=== PATIENT | female | born 1940 | race Caucasian/White ===

== ENCOUNTER 2021-05-27 18:47 | Observation (INO) | payer MEDICARE, SELFPAY ==
[2021-05-27] VITALS (14 sets, daily range): BP systolic 134–156; BP diastolic 64–78; PULSE 76–94; RESP 18–22; TEMP 36.6–36.7; O2SAT 80–97; BMI 18.3; BMI 18.4; BMI 18.5; BMI 16.9
--- NOTE | 2021-05-27 19:05 | PC.NURSE ---
PATIENT IN WAITING ROOM AT THIS TIME. VITALS CHECKED AT THIS TIME: 02 SAT 88% RA, HR 96, RR 29. FAMILY STATES THAT PATIENT HAS HAD WORSENING SOA FOR LAST 2 DAYS. ASSESSED BY IKER AND SUGGESTED PATIENT IS SEEN IN ER. REPORT GIVEN TO Codey DIXON RN BY Daina REAVES APRN
--- NOTE | 2021-05-27 19:21 | ECG_ITS ---
APPROVED REPORT Exam: Resting ECG HR:92 bpm ECG Measurements Heart Rate [address] 174 P QRSd 108 QRS 1 QT 360 T 136 QTc 445 Conclusion Sinus rhythm with premature atrial complexes Moderate voltage criteria for LVH, may be normal variant ST & T wave abnormality, consider lateral ischemia Abnormal ECG Electronically signed by : Lito Pimentel MD 05/29/2021 13:25:46
[2021-05-27 20:00] LABS: ABG Base Excess 7.4 mmol/L (-2.4-2.3); ABG HCO3 30.7 mmhg (22.0-26.0); ABG Oxygen Saturation 94 % (90-100); ABG PH 7.49 mmol/L (7.35-7.45); ABG TCO2 31.9 mmhg (23-27)
--- NOTE | 2021-05-27 20:02 | XR_ITS ---
PROCEDURE INFORMATION: Exam: XR Chest Exam date and time: 05/27/2021 8:02 PM Age: 81 years old Clinical indication: Shortness of breath; Additional info: SOA TECHNIQUE: Imaging protocol: XR of the chest. Views: 2 views. COMPARISON: No relevant prior studies available. FINDINGS: Lungs: Prominent bronchovascular markings especially over the bases. No focal consolidation. Pleural spaces: Unremarkable. No pleural effusion. No pneumothorax. Heart/Mediastinum: Unremarkable. No cardiomegaly. Bones/joints: Unremarkable. IMPRESSION: Question bronchitis and/or mild interstitial edema
[2021-05-27 20:05] LABS: Coronavirus 19, PCR Not Detected (NotDetected); Influenza A, PCR Not Detected (NotDetected); Influenza B, PCR Not Detected (NotDetected)
[2021-05-27 20:09] LABS: Basophils # 0.3 K/mm3 (0-0.2); Basophils % 4.3 % (0.1-2.0); Eosinophils # 0.2 K/mm3 (0.0-0.4); Eosinophils % 2.2 % (0.1-12.0); Hematocrit 45.4 % (37.0-47.0); Hemoglobin 14.4 g/dL (12.2-16.2); Lymphocytes # 1.6 K/mm3 (0.7-4.5); Lymphocytes % 23.8 % (10-50); Mean Corpuscular HGB Conc 31.8 g/dL (31.8-35.4); Mean Corpuscular Hemoglobin 30.2 pg (27.0-31.2); Mean Corpuscular Volume 94.9 fl (81-99); Mean Platelet Volume 7.8 fl (7.4-10.4); Monocytes # 0.8 K/mm3 (0.1-1.0); Neutrophils # 4.3 K/mm3 (1.8-7.8); Platelet Count 348 K/mm3 (142-424); Red Blood Count 4.78 M/mm3 (4.20-5.40); Red Cell Distribution Width 14.2 % (11.5-17.5); White Blood Count 6.9 K/mm3 (4.8-10.8)
[2021-05-27 20:16] LABS: Allen's Test Acceptable; Oxygen 4L NC %; Source Left Radial
[2021-05-27 20:19] LABS: Chloride 91 mmol/L (98-107); Potassium 3.7 mmoL/L (3.5-5.1); Sodium 133 mmol/L (136-145)
[2021-05-27 20:22] LABS: Alanine Aminotransferase 19 U/L (12-78); Albumin Level 4.4 g/dl (3.5-5.0); Albumin/Globulin Ratio 1.3 (1.1-1.8); Alkaline Phosphatase 57 U/L (38-126); Anion Gap 15.7 mEq/L (5-15); Aspartate Amino Transferase 33 U/L (14-36); Bilirubin,Total 0.4 mg/dl (0.2-1.3); Blood Urea Nitrogen 18 mg/dl (7-17); Calcium 9.3 mg/dl (8.4-10.2); Carbon Dioxide 30 mmol/L (22.0-30.0); Creatinine Clearance Estimated 33 mL/min (50-200); Estimated Glomerular Filt Rate 69 ml/min (>60); GFR (African American) 83 ML/MIN (>60); Globulin 3.5 g/dL (1.3-3.2); Glucose 140 mg/dl (74-100); Total Protein,Serum 7.9 g/dl (6.3-8.2)
[2021-05-27 20:23] LABS: Magnesium 1.4 mg/dl (1.6-2.3)
[2021-05-27 20:26] LABS: Lactic Acid 1.5 mmol/L (0.7-2.1)
[2021-05-27 20:34] LABS: NT Pro Brain Natriuretic Pep. 690 pg/mL (0-450)
[2021-05-27 20:37] LABS: Microscopic, Urine URINE MICROSCOPIC (MICROSCOPIC)
[2021-05-27 20:37] LABS: Troponin I 0.02 ng/ml (0.00-0.034)
[2021-05-27 20:40] LABS: Erythrocyte Sedimentation Rate 15 mm/hr (0-30)
[2021-05-27 20:46] LABS: Appearance,Urine CLEAR (Clear); Bilirubin,Urine Negative (Negative); Blood, Urine TRACE-I (Negative); Color,Urine YELLOW (Yellow); Glucose,Urine (UA) Negative (Negative); Ketones,Urine TRACE (Negative); Leukocyte Esterase,Urine 1+ (Negative); Nitrate,Urine POSITIVE (Negative); PH,Urine 5.5 (5.0-8.5); Protein,Urine Negative (Negative); Specific Gravity, Urine >= 1.030 (1.005-1.030); Urobilinogen,Urine 0.2 EU/dl (0.2)
--- NOTE | 2021-05-27 20:50 | HMH.EDSOB ---
ED Disposition Clinical Impression: Dyspnea Qualifiers: Dyspnea type: unspecified Qualified Code(s): R06.00 - Dyspnea, unspecified UTI (urinary tract infection) Qualifiers: Urinary tract infection type: site unspecified Hematuria presence: without hematuria Qualified Code(s): N39.0 - Urinary tract infection, site not specified Disposition: Admitted as Observation Condition on Discharge: Good - Critical Care Critical Care Time: No Attestation: On 05/27/21, the high probability of a clinically significant, sudden or life threatening deterioration of the following system(s) required my full and direct attention, intervention and personal management. The time I documented below is in addition to time spent performing reported procedures but includes the following listed in this critical care notation. Medical Decision Making - Medical Records Medical records reviewed: Yes: I reviewed the patient's medical records. - Cole Inquiry Pt receiving controlled substance: No Vital Signs: 05/27/21 19:00 05/27/21 19:19 05/27/21 19:20 Temperature 97.8 F 97.8 F 97.8 F Temperature Source Rectal Rectal Rectal Pulse Rate 93 H Pulse Rate [Apical] 77 93 H Respiratory Rate 18 18 20 Blood Pressure 156/66 H Blood Pressure [Right Arm] 156/66 H 156/67 H Blood Pressure Mean Blood Pressure Mean [Right Arm] 96 96 Blood Pressure Source Automatic Cuff Blood Pressure Source [Right Arm] Automatic Cuff Automatic Cuff Blood Pressure Position Sitting Blood Pressure Position [Right Arm] Sitting Sitting 02 Sat by Pulse Oximetry 84 L 80 L 94 L Oxygen Delivery Method Room Air Room Air Nasal Cannula Oxygen Flow Rate (LPM) 4 05/27/21 19:54 05/27/21 20:55 05/27/21 21:00 Temperature 97.8 F Temperature Source Rectal Pulse Rate 76 77 Pulse Rate [Apical] 93 H Respiratory Rate 20 Blood Pressure 147/64 H 156/66 H Blood Pressure [Right Arm] 156/67 H Blood Pressure Mean Blood Pressure Mean [Right Arm] 96 Blood Pressure Source Blood Pressure Source [Right Arm] Automatic Cuff Blood Pressure Position Blood Pressure Position [Right Arm] Supine 02 Sat by Pulse Oximetry 94 L 89 L 88 L Oxygen Delivery Method Nasal Cannula Nasal Cannula Nasal Cannula Oxygen Flow Rate (LPM) 4 4 4 05/27/21 21:30 05/27/21 21:45 05/27/21 22:00 Temperature Temperature Source Pulse Rate 89 88 89 Pulse Rate [Apical] Respiratory Rate Blood Pressure 148/73 H 134/78 Blood Pressure [Right Arm] Blood Pressure Mean 98 93 Blood Pressure Mean [Right Arm] Blood Pressure Source Blood Pressure Source [Right Arm] Blood Pressure Position Blood Pressure Position [Right Arm] 02 Sat by Pulse Oximetry 87 L 87 L 89 L Oxygen Delivery Method Nasal Cannula Nasal Cannula Nasal Cannula Oxygen Flow Rate (LPM) 4 4 4 05/27/21 22:15 05/27/21 22:30 Temperature Temperature Source Pulse Rate 82 94 H Pulse Rate [Apical] Respiratory Rate Blood Pressure 134/78 Blood Pressure [Right Arm] Blood Pressure Mean 97 Blood Pressure Mean [Right Arm] Blood Pressure Source Blood Pressure Source [Right Arm] Blood Pressure Position Blood Pressure Position [Right Arm] 02 Sat by Pulse Oximetry 88 L 90 L Oxygen Delivery Method Oxygen Flow Rate (LPM) - Lab Data Lab results reviewed: Yes: I reviewed the patient's lab results. Lab Results 05/27/21 19:30: WBC 6.9, RBC 4.78, Hgb 14.4, Hct 45.4, MCV 94.9, MCH 30.2, MCHC 31.8, RDW 14.2, Plt Count 348, MPV 7.8, Neut % (Auto) 63.0, Lymph % (Auto) 23.8, [place] % (Auto) 11.0 H, Eos % (Auto) 2.2, Baso % (Auto) 4.3 H, Neut # (Auto) 4.3, Lymph # (Auto) 1.6, [place] # (Auto) 0.8, Eos # (Auto) 0.2, Baso # (Auto) 0.3 H, ESR 15 05/27/21 19:30: Sodium 133 L, Potassium 3.7, Chloride 91 L, Carbon Dioxide 30, Anion Gap 15.7 H, BUN 18 H, Creatinine 0.80, Estimated Creat Clear 33, Estimated GFR 69, Est GFR ( Amer) 83, Glucose 140 H, Calcium 9.3, Magnesium 1.4 L, Total B
[2021-05-27 20:57] LABS: Squamous Epithelial Cell,Urine Occasional #/hpf (0-5)
[2021-05-27 20:58] LABS: Bacteria,Urine 3+ /lpf
[2021-05-27 21:03] LABS: Procalcitonin 0.072 ng/mL (0.0-2.0)
--- NOTE | 2021-05-27 21:08 | PC.NURSE ---
dR. Carmen S/W dR. Hua
--- NOTE | 2021-05-27 23:22 | PC.NURSE ---
Report received from Onofre Nolasco RN
[2021-05-27 23:24] LABS: Troponin I 0.02 ng/ml (0.00-0.034)
[2021-05-28] VITALS (7 sets, daily range): BP systolic 121–133; BP diastolic 53–81; PULSE 79–96; RESP 18–22; TEMP 36.7; O2SAT 90–97; BMI 16.7
--- NOTE | 2021-05-28 01:58 | PC.NURSE ---
LAB AT BEDSIDE
[2021-05-28 02:36] LABS: Troponin I 0.02 ng/ml (0.00-0.034)
--- NOTE | 2021-05-28 05:35 | PC.NURSE ---
lab at bedside
--- NOTE | 2021-05-28 05:35 | PC.NURSE ---
0400- routine reassessment completed. no acute changes from admission. lungs remain ctab and bowels active x4 quadrants. pt A&O x4. standby assist to bedside commode or bathroom to void. Has had a BM this shift. NPO since midnight per order. Pt has denied all pain and only c/o soa on exertion when ambulating. vss. call light in reach
[2021-05-28 05:49] LABS: Basophils % 0.7 % (0.1-2.0); Chloride 95 mmol/L (98-107); Eosinophils # 0.1 K/mm3 (0.0-0.4); Eosinophils % 0.8 % (0.1-12.0); Lymphocytes # 0.9 K/mm3 (0.7-4.5); Lymphocytes % 13.3 % (10-50); Mean Corpuscular HGB Conc 31.7 g/dL (31.8-35.4); Mean Corpuscular Hemoglobin 30.1 pg (27.0-31.2); Mean Platelet Volume 8.7 fl (7.4-10.4); Monocytes # 0.7 K/mm3 (0.1-1.0); Monocytes % 11.1 % (1.7-9.3); Neutrophils # 4.7 K/mm3 (1.8-7.8); Neutrophils % 74.1 % (37.0-80.0); Platelet Count 273 K/mm3 (142-424); Red Cell Distribution Width 14.2 % (11.5-17.5); White Blood Count 6.4 K/mm3 (4.8-10.8)
[2021-05-28 05:50] LABS: Potassium 3.2 mmoL/L (3.5-5.1); Sodium 132 mmol/L (136-145)
[2021-05-28 05:52] LABS: Anion Gap 8.2 mEq/L (5-15); Blood Urea Nitrogen 13 mg/dl (7-17); Carbon Dioxide 32 mmol/L (22.0-30.0); Creatinine Clearance Estimated 30 mL/min (50-200); Estimated Glomerular Filt Rate 80 ml/min (>60); GFR (African American) 97 ML/MIN (>60)
[2021-05-28 05:53] LABS: Calcium 7.9 mg/dl (8.4-10.2); Chol/HDL Ratio 1.9 (1-3.5); Cholesterol 88 mg/dl (140-200); Glucose 111 mg/dl (74-100); HDL Cholesterol 46 mg/dl (40-60); Magnesium 1.1 mg/dl (1.6-2.3); Triglycerides 73 mg/dl (30-150); VLDL Cholesterol 15 mg/dL (0-40)
[2021-05-28 06:04] LABS: Direct LDL Cholesterol < 30.00 mg/dL (100-129)
[2021-05-28 06:10] LABS: Hemoglobin 12.4 g/dL (12.2-16.2)
[2021-05-28 06:18] LABS: POC Glucose,Bedside 101 (70-110)
--- NOTE | 2021-05-28 07:12 | CT_ITS ---
PROCEDURE: CT ANGIO CHEST PE PROTOCOL CLINCIAL INDICATION: hypoxia COMPARISON: CR XR CHEST 2V from 05/27/2021 TECHNIQUE: IV Contrast: 70ML Isovue 370 Axial images obtained with sagittal and coronal reformats. All CT scans at the facility use one or more dose reduction, viz: automated exposure control, ma/kV adjustment per patient size (including targeted exams where dose is matched to indication, i.e. head), or iterative reconstruction technique. FINDINGS: HEART AND MEDIASTINAL STRUCTURES: No evidence of pulmonary embolus. The main pulmonary artery and right and left main pulmonary arteries are prominent. The pulmonary artery/aorta ratio is greater than 1. These findings suggest pulmonary arterial hypertension. No evidence of aortic aneurysm. LUNGS AND PLEURAL SPACES: COPD changes with scattered areas of scarring. There is eventration of the right hemidiaphragm posteriorly with associated right basilar atelectasis atelectatic changes are present in the left lower lobe along the major fissure inferiorly and there is also mild eventration of the left hemidiaphragm posteriorly with associated atelectasis. BONY STRUCTURES: Severe thoracic kyphosis with degenerative changes. There is 5 mm anterolisthesis of C6 on C7. 50 percent wedge compression changes involve T2 with kyphosis at that level. 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 The degree of stenosis is not able to be calculated on this exam. Calcific plaque is also present at the ostium of the celiac artery. ADDITIONAL FINDINGS: No other significant abnormalities. IMPRESSION: No evidence of pulmonary embolus. Consistent with pulmonary arterial hypertension. COPD changes with scattered areas of scarring and atelectasis in the lung bases adjacent to diaphragmatic eventration is. Prominent main pulmonary artery and its branches Other nonacute findings as described above. Dictated by: Yury Jones MD 05/28/2021 12:41 Yury Jones MD in OV 05/28/2021 12:41
--- NOTE | 2021-05-28 07:14 | HMH.HP ---
*Admission Date: 05/27/21 *Chief complaint: I feel like I am smothering *History of present illness: 81-year-old female presented to the emergency department with her daughter due to sensation of smothering. Patient states this is happened before but a cause has not been identified. She has never been hospitalized for similar symptoms. In the emergency department patient was found to be mildly hypoxic with O2 sats in the high 80s. She had mild increased work of breathing. Labs were rather unremarkable. EKG showed frequent PACs. Chest x-ray showed interstitial edema. Patient was given IV Lasix without any improvement in her hypoxia. Due to persistent hypoxia patient was admitted for observation and further testing. This morning she denies having any fevers, cough, chills, myalgias, chest pain, lower extremity swelling. She has no dyspnea at rest but does note dyspnea on exertion. She has no personal history of lung problems. She does take a heart pill . But is not exactly sure what diagnosis has required this medicine. She has no smoking history. Patient lives by herself. [facility] History I have reviewed the patient's past medical history: Yes Medical History: Reports:: Diabetes Mellitus Type 2, Hyperlipidemia, Hypertension Denies:: Cancer, MRSA *Have you ever received a pneumonia vaccine?: No *Have you received a flu vaccine this season?: Yes Other Medical History: Reports: Cataracts, Hypothyroidism Laterality Cases: Bilateral: Cataract Other Surgeries: Yes: Appendectomy, Cardiac Catheterization, Cholecystectomy, Hernia Repair, Hysterectomy-Partial Amputation: No Fractures: No - *Social History Last grade of school completed: GED Smoking Status: Never smoker Alcohol Intake: never *Occupational Status:: retired Housing: house *Travel in the last 8 weeks: None Family Hx:: No significant family history Review of Systems - Constitutional Reports anorexia, Denies body ache(s), Denies chills, Denies lack of energy, Denies night sweats - Eyes Denies blurry vision - ENT Denies abnormal hearing, Denies change in voice - *Cardiovascular Reports shortness of breath with activity, Denies chest pain, Denies chest pain at rest, Denies chest pain with activity, Denies excessive sweating, Denies generalized swelling - *Respiratory Reports shortness of breath with activity, Denies change in phlegm color, Denies chest congestion, Denies cough, Denies coughing up blood, Denies pain on inspiration, Denies pain with cough - *Gastrointestinal Denies abdominal pain, Denies loose stools - *Genitourinary Denies painful urination - *Musculoskeletal Denies joint pain - Integumentary/Breasts Denies hair loss - *Neurologic Denies abnormal walking, Denies seizure-like activity Meds Home Medications Medication Instructions Recorded Confirmed Type Acetaminophen [Tylenol 500mg 500 mg PO DAILY 05/27/21 05/27/21 History tablet] Amlodipine Besylate [Norvasc 10mg 10 mg PO DAILY 05/27/21 05/27/21 History tablet] Atorvastatin Calcium [Lipitor 40mg 40 mg PO HS 05/27/21 05/27/21 History Tab] Cholecalciferol (Vitamin D3) 25 mcg PO DAILY 05/27/21 05/27/21 History [Vitamin D3] Famotidine 10 mg PO DAILY 05/27/21 05/27/21 History Ferrous Sulfate [Ferrous Sulfate 325 mg PO DAILY 05/27/21 05/27/21 History 325mg Tab] Ibuprofen [Advil 200mg Tab] 200 mg PO DAILY 05/27/21 05/27/21 History Levothyroxine Sodium 50 mcg PO DAILY 05/27/21 05/27/21 History [Levothyroxine] Lisinopril/Hydrochlorothiazide 1 each PO DAILY 05/27/21 05/27/21 History [Lisinopril-Hctz 10-12.5 mg Tab] Mecobalamin [B12 Active] 1,000 mcg PO DAILY 05/27/21 05/27/21 History Metformin HCl [Metformin 1000mg 1,000 mg PO DAILY 05/27/21 05/27/21 History Tablets] Metoprolol Succinate [Kapspargo 25 mg PO DAILY 05/27/21 05/27/21 History Sprinkle] Simethicone [Gas Relief] 80 mg PO DAILY 05/27/21 05/27/21 History Vitamin E Acetate [Vitamin E] 1
--- NOTE | 2021-05-28 07:42 | HMH.PHAVTE ---
[facility] Pharmacy VTE Monitoring - Patient Demographics Admission date: 05/27/21 Report Date: 05/28/21 Time: 07:42 Allergies/Adverse Reactions: Patient Allergies codeine Allergy (Verified 05/27/21 20:01) ibandronate sodium [From Boniva] Allergy (Verified 05/27/21 20:01) Penicillins Allergy (Verified 05/27/21 20:01) Sulfa (Sulfonamide Antibiotics) Allergy (Verified 05/27/21 20:01) Height: 1.63 m Weight: 44.452 kg Patient Problems: Current Active Problems Dyspnea (Acute) Hypoxia (Acute) Essential hypertension (Acute) Diabetes mellitus type 2 in nonobese (Acute) - VTE Risk Labs: VTE Related Lab Results Hgb 12.4 g/dL (12.2-16.2) D 05/28/21 05:30 Hct 39.0 % (37.0-47.0) 05/28/21 05:30 Plt Count 273 K/mm3 (142-424) 05/28/21 05:30 BUN 13 mg/dl (7-17) D 05/28/21 05:30 Creatinine 0.70 mg/dl (0.52-1.04) 05/28/21 05:30 Estimated Creat Clear 30 mL/min (50-200) 05/28/21 05:30 VTE Score: 2 VTE Risk Level: Very Low Risk - Prophylaxis VTE Prophylaxis Ordered?: Yes Types of VTE Prophylaxis: TEDS Knee High Location of Applied Device: Bilateral Lower Extremeties
--- NOTE | 2021-05-28 07:50 | ECG_ITS ---
APPROVED REPORT Exam: Resting ECG HR:98 bpm ECG Measurements Heart Rate 98 AXES NE 216 P QRSd 98 QRS -3 QT 352 T 154 QTc 449 Conclusion Sinus rhythm with 1st degree AV block with premature atrial complexes Left ventricular hypertrophy with repolarization abnormality Cannot rule out Septal infarct, age undetermined Abnormal ECG Electronically signed by : Lito Pimentel MD 05/29/2021 13:25:05
--- NOTE | 2021-05-28 09:35 | HMH.PHAINT ---
verified home medication list using the list from [facility] pharmacy and pt interview
[2021-05-28 11:34] LABS: POC Glucose,Bedside 118 (70-110)
--- NOTE | 2021-05-28 14:26 | PC.NURSE ---
13:00 - Nurse to room. Pt. noted to have o2 off, SPO2 noted to be at 80% on RA. 4L O2 VIA NC applies SPO2 up to 92%. Nurse encouraged pt. to wear NC. Pt. V/U.
[2021-05-28 16:38] LABS: POC Glucose,Bedside 113 (70-110)
--- NOTE | 2021-05-28 16:47 | PC.NURSE ---
Addendum entered by Alondra Burnette RN 05/28/21 17:00: No acute changes noted from previous assessment. See Nursing biophysical for assessment. Original Note: Routine reassessment completed. VSS. IV noted to be leaking, dressing removed. IV flushed , no further leaking noted. New dressing in place. IVF restarted. Dr. Redman in room. Pt. denies needs, will continue to monitor.
--- NOTE | 2021-05-28 20:40 | PC.NURSE ---
2015- Routine assessment completed at this time. Patient at 4L NC with saturations steady at 93%. Attempted to wean patient to 2L NC. Saturations maintained briefly, but when patient began talking, sats quickly dropped to 82-85% and only returned to 88% when she stopped talking. O2 increased to 3L with no consistent recovery in saturation after 5 minutes. O2 increased again to 4L and sats increased and maintained at 92-93%. See biophysical for full assessment data.
[2021-05-28 20:42] LABS: POC Glucose,Bedside 129 (70-110)
[2021-05-29 03:59] VITALS: BP 128/61; PULSE 65; RESP 20; TEMP 36.7; O2SAT 93
--- NOTE | 2021-05-29 04:01 | PC.NURSE ---
Routine reassessment completed at this time. No acute changes this shift. Remains A&O x4. Denies chest pain, and has not c/o soa this shift. VSS. O2 saturation remains in the low 90's on 4L. No further attempts to wean down. Lungs remain CTAB and systolic heart murmur noted and unchanged from previous assessment. Sputum cup in room for collection but patient unable to give sample at this time. Will contact respiratory for assist. Call light in reach, Will continue to monitor.
[2021-05-29 06:26] LABS: POC Glucose,Bedside 108 (70-110)
--- NOTE | 2021-05-29 06:40 | PC.NURSE ---
RT contacted at this time due to PT unable to provide sputum sample. RT will follow up with pt to see if they can induce a sample.
--- NOTE | 2021-05-29 06:47 | PC.NURSE ---
Dr. Redman at bedside
--- NOTE | 2021-05-29 06:58 | PC.NURSE ---
PT trialed at room air per MD order for 5 minutes. O2 saturations remained between 86 and 90%
--- NOTE | 2021-05-29 07:01 | HMH.ACPN2 ---
Internal Medicine - PN: Subj *Date: 05/29/21 *Time: 07:01 Interval history: No complaints. No acute events over the last 24 hours. Patient reports resolution of shortness of breath/dyspnea on exertion. CT scan ruled out pulmonary embolism. CT scan did have changes of the lungs consistent with COPD. Patient also has cervical spondylolisthesis. In further discussions with the patient she had significant secondhand smoke exposure as a child since her father smoked. She was not to a smoker and she herself has never been a smoker. Exam Vital signs and Labs for Last 24 Hours: Temp Pulse Resp BP Pulse Ox 98.0 F 65 20 128/61 93 L 05/29/21 03:59 05/29/21 03:59 05/29/21 03:59 05/29/21 03:59 05/29/21 03:59 Laboratory Results - last 24 hr 05/28/21 11:24: POC Glucose 118 H 05/28/21 16:22: POC Glucose 113 H 05/28/21 20:30: POC Glucose 129 H 05/29/21 06:16: POC Glucose 108 I & O for Last 24 hours: Intake & Output 05/26/21 05/27/21 05/28/21 05/29/21 11:59 11:59 11:59 11:59 Intake Total 240 / 240 220 / 220 Output Total 2000 / 1999 800 / 800 Balance -1760 / -1760 -580 / -580 Weight 98 lb Microbiology Reports for the Last 24 Hours: Microbiology 05/27/21 20:30 Urine,Clean Catch Urine Culture - Preliminary Narrative: Patient looks comfortable. Nasal cannula is in place. Spine is kyphotic. Lungs overall are clear with some rhonchi at the right base to clear with deep breathing. Heart has an irregular rate and rhythm. Lower extremities have no edema. EKG from yesterday showed frequent PACs Room air sat this morning is 86% at rest Assessment and Plan (1) Hypoxia Status: Acute Category: Medical Code(s): R09.02 - Hypoxemia (2) Dyspnea Status: Acute Qualifiers: Dyspnea type: unspecified Qualified Code(s): R06.00 - Dyspnea, unspecified Category: Medical Code(s): R06.00 - Dyspnea, unspecified (3) UTI (urinary tract infection) Status: Suspected Qualifiers: Urinary tract infection type: site unspecified Hematuria presence: without hematuria Qualified Code(s): N39.0 - Urinary tract infection, site not specified Category: Medical Code(s): N39.0 - Urinary tract infection, site not specified (4) Essential hypertension Status: Acute Category: Medical Code(s): I10 - Essential (primary) hypertension (5) Diabetes mellitus type 2 in nonobese Status: Acute Category: Medical Code(s): E11.9 - Type 2 diabetes mellitus without complications (6) Pneumonia Status: Suspected Category: Medical Code(s): J18.9 - Pneumonia, unspecified organism - Assessment and plan all Dx Assessment and Plan for all problems:: 1. Awaiting echocardiogram 2. Consult pulmonology today for evaluation. I suspect patient may actually have chronic respiratory failure and we just happened to capture low O2 sats during her visit to the ER. 3. As long as no further interventions are planned with pulmonology consultation patient will be discharged home later today and will continue using supplemental oxygen
[2021-05-29 08:00] VITALS: BP 130/72; PULSE 83; RESP 18; TEMP 36.7; O2SAT 93
[2021-05-29 08:28] VITALS: PULSE 69; RESP 18; O2SAT 94
--- NOTE | 2021-05-29 08:33 | PC.NURSE ---
RESP CARE NOTE: Pt induced for sputum specimen, but is nable to produce a specimen. Specimen cup left at bedside with instruction to expectorate sputum into cup, if specimen is produced later.
[2021-05-29 09:00] VITALS: O2SAT 94
[2021-05-29 10:17] LABS: Adenovirus,PCR Not Detected (NotDetected); Bordetella Pertussis Not Detected (NotDetected); Chlamydophila Pneumoniae, PCR Not Detected (NotDetected); Coronavirus 229E Not Detected (NotDetected); Coronavirus NL63 Not Detected (NotDetected); Coronavirus OC43 Not Detected (NotDetected); Coronovirus HKU1,PCR Not Detected (NotDetected); Human Metapneumovirus Not Detected (NotDetected); Influenza A, PCR Not Detected (NotDetected); Influenza AH1, 2009 Not Detected (NotDetected); Influenza AH1, PCR Not Detected (NotDetected); Influenza AH3,PCR Not Detected (NotDetected); Influenza B, PCR Not Detected (NotDetected); Mycoplasma Pneumoniae, PCR Not Detected (NotDetected); Parainfluenza 1, PCR Not Detected (NotDetected); Parainfluenza 2, PCR Not Detected (NotDetected); Parainfluenza 3, PCR Not Detected (NotDetected); Parainfluenza 4, PCR Not Detected (NotDetected); Respiratory Syncytial Virus Not Detected (NotDetected); Rhinovirus/Enterovirus Not Detected (NotDetected)
[2021-05-29 10:47] VITALS: BMI 16.7
--- NOTE | 2021-05-29 11:16 | PC.NURSE ---
O2 sats at 93% on 4L O2 via NC. NC removed, O2 sats at 83% on Room Air. O2 sats back up to 90% on 4L O2.
[2021-05-29 11:20] VITALS: O2SAT 83
--- NOTE | 2021-05-29 11:32 | SW/DCPLANNER ---
SET UP HOME 02 FOR THIS PATIENT WHO IS DISCHARGING HOME TODAY... PORTABLE TANK WILL BE DELIVERED TO HER ROOM PRIOR TO DISCHARGE..
[2021-05-29 12:00] VITALS: BP 140/90; PULSE 75; RESP 18; TEMP 36.7; O2SAT 93
[2021-05-29 12:08] LABS: POC Glucose,Bedside 98 (70-110)
--- NOTE | 2021-05-29 13:39 | HMH.PULMCON ---
*Admission Date: 05/27/21 [facility] History Medical History: Reports:: Diabetes Mellitus Type 2, Hyperlipidemia, Hypertension Denies:: Cancer, MRSA *Have you ever received a pneumonia vaccine?: No *Have you received a flu vaccine this season?: Yes Other Medical History: Reports: Cataracts, Hypothyroidism Laterality Cases: Bilateral: Cataract Other Surgeries: Yes: Appendectomy, Cardiac Catheterization, Cholecystectomy, Hernia Repair, Hysterectomy-Partial Amputation: No Fractures: No - *Social History Last grade of school completed: GED Smoking Status: Never smoker Alcohol Intake: never *Occupational Status:: retired Housing: house *Travel in the last 8 weeks: None Family Hx:: No significant family history Meds Home Medications Medication Instructions Recorded Confirmed Type Acetaminophen [Tylenol 500mg 500 mg PO DAILY 05/27/21 05/27/21 History tablet] Amlodipine Besylate [Norvasc 10mg 10 mg PO DAILY 05/27/21 05/27/21 History tablet] Atorvastatin Calcium [Lipitor 40mg 40 mg PO HS 05/27/21 05/27/21 History Tab] Cholecalciferol (Vitamin D3) 25 mcg PO DAILY 05/27/21 05/27/21 History [Vitamin D3] Famotidine 10 mg PO BIDP PRN 05/27/21 05/28/21 History Ferrous Sulfate [Ferrous Sulfate 325 mg PO BID 05/27/21 05/28/21 History 325mg Tab] Ibuprofen [Advil 200mg Tab] 200 mg PO DAILY 05/27/21 05/27/21 History Levothyroxine Sodium 50 mcg PO DAILY 05/27/21 05/27/21 History [Levothyroxine] Lisinopril/Hydrochlorothiazide 1 tab PO BID 05/27/21 05/28/21 History [Lisinopril-Hctz 10-12.5 mg Tab] Mecobalamin [B12 Active] 1,000 mcg PO DAILY 05/27/21 05/27/21 History Metformin HCl [Metformin 1000mg 1,000 mg PO BID 05/27/21 05/28/21 History Tablets] Simethicone [Gas Relief] 80 mg PO DAILY 05/27/21 05/27/21 History Vitamin E Acetate [Vitamin E] 1,000 unit PO DAILY 05/27/21 05/27/21 History Metoprolol Succinate [Metoprolol 25 mg PO DAILY 05/28/21 05/28/21 History Succinate 25mg Tablet*] levoFLOXacin [Levofloxacin] 500 mg PO DAILY #5 tab 05/29/21 Rx Allergies Allergy/AdvReac Type Severity Reaction Status Date / Time codeine Allergy Verified 05/27/21 20:01 ibandronate sodium Allergy Verified 05/27/21 20:01 [From Boniva] Penicillins Allergy Verified 05/27/21 20:01 Sulfa (Sulfonamide Allergy Verified 05/27/21 20:01 Antibiotics) Internal Medicine - CN: Reslt - Labs CBC & Chem 7: 05/28/21 05:30 05/28/21 05:30 - ABG Interpretation ABG results: 05/27/21 19:58 ABG pH 7.49 H ABG pCO2 41.0 ABG pO2 69.0 L ABG HCO3 30.7 H ABG Total CO2 31.9 H ABG O2 Saturation 94 ABG Base Excess 7.4 H Assessment and Plan (1) Hypoxia Status: Acute Category: Medical Code(s): R09.02 - Hypoxemia (2) Dyspnea Status: Acute Qualifiers: Dyspnea type: unspecified Qualified Code(s): R06.00 - Dyspnea, unspecified Category: Medical Code(s): R06.00 - Dyspnea, unspecified (3) UTI (urinary tract infection) Status: Suspected Qualifiers: Urinary tract infection type: site unspecified Hematuria presence: without hematuria Qualified Code(s): N39.0 - Urinary tract infection, site not specified Category: Medical Code(s): N39.0 - Urinary tract infection, site not specified (4) Essential hypertension Status: Acute Category: Medical Code(s): I10 - Essential (primary) hypertension (5) Diabetes mellitus type 2 in nonobese Status: Acute Category: Medical Code(s): E11.9 - Type 2 diabetes mellitus without complications (6) Pneumonia Status: Suspected Category: Medical Code(s): J18.9 - Pneumonia, unspecified organism
[2021-05-29 14:28] LABS: C-Reactive Protein 0.6 mg/L (0-4)
[2021-05-29 14:41] LABS: Procalcitonin 0.059 ng/mL (0.0-2.0)
--- NOTE | 2021-05-29 15:20 | HMH.PULMCON ---
*Admission Date: 05/27/21 *Reason for consult:: Acute hypoxic respiratory failure acute hypoxic respiratory failure *History of present illness: Ms. David is a 81-year-old female no significant smoking history, no prior respiratory complaints never used any inhalers presented to hospital with worsening respiratory distress and pulmonary was called for further management. Patient received Lasix with slight but no significant improvement in her respiratory status. [facility] History Medical History: Reports:: Diabetes Mellitus Type 2, Hyperlipidemia, Hypertension Denies:: Cancer, MRSA *Have you ever received a pneumonia vaccine?: No *Have you received a flu vaccine this season?: Yes Other Medical History: Reports: Cataracts, Hypothyroidism Laterality Cases: Bilateral: Cataract Other Surgeries: Yes: Appendectomy, Cardiac Catheterization, Cholecystectomy, Hernia Repair, Hysterectomy-Partial Amputation: No Fractures: No - *Social History Last grade of school completed: GED Smoking Status: Never smoker Alcohol Intake: never *Occupational Status:: retired Housing: house *Travel in the last 8 weeks: None Family Hx:: No significant family history ROS - Cons Denies anorexia, Denies body ache(s), Denies chills - Card Reports shortness of breath, Reports shortness of breath with activity - Resp Respiratory: Reports shortness of breath, Reports chest congestion, Reports cough, Reports non-productive cough, Denies excessive phlegm production, Denies pain on inspiration, Denies pain with cough, Denies cough with sputum production, Denies pain with breathing - GI Gastrointestingal: Denies: abdominal pain - Psych Denies thoughts of hurting/killing others, Denies thoughts of hurting/killing yourself Meds Home Medications Medication Instructions Recorded Confirmed Type Acetaminophen [Tylenol 500mg 500 mg PO DAILY 05/27/21 05/27/21 History tablet] Amlodipine Besylate [Norvasc 10mg 10 mg PO DAILY 05/27/21 05/27/21 History tablet] Atorvastatin Calcium [Lipitor 40mg 40 mg PO HS 05/27/21 05/27/21 History Tab] Cholecalciferol (Vitamin D3) 25 mcg PO DAILY 05/27/21 05/27/21 History [Vitamin D3] Famotidine 10 mg PO BIDP PRN 05/27/21 05/28/21 History Ferrous Sulfate [Ferrous Sulfate 325 mg PO BID 05/27/21 05/28/21 History 325mg Tab] Ibuprofen [Advil 200mg Tab] 200 mg PO DAILY 05/27/21 05/27/21 History Levothyroxine Sodium 50 mcg PO DAILY 05/27/21 05/27/21 History [Levothyroxine] Lisinopril/Hydrochlorothiazide 1 tab PO BID 05/27/21 05/28/21 History [Lisinopril-Hctz 10-12.5 mg Tab] Mecobalamin [B12 Active] 1,000 mcg PO DAILY 05/27/21 05/27/21 History Metformin HCl [Metformin 1000mg 1,000 mg PO BID 05/27/21 05/28/21 History Tablets] Simethicone [Gas Relief] 80 mg PO DAILY 05/27/21 05/27/21 History Vitamin E Acetate [Vitamin E] 1,000 unit PO DAILY 05/27/21 05/27/21 History Metoprolol Succinate [Metoprolol 25 mg PO DAILY 05/28/21 05/28/21 History Succinate 25mg Tablet*] levoFLOXacin [Levofloxacin] 500 mg PO DAILY #5 tab 05/29/21 Rx Allergies Allergy/AdvReac Type Severity Reaction Status Date / Time codeine Allergy Verified 05/27/21 20:01 ibandronate sodium Allergy Verified 05/27/21 20:01 [From Raquel] Penicillins Allergy Verified 05/27/21 20:01 Sulfa (Sulfonamide Allergy Verified 05/27/21 20:01 Antibiotics) Exam - Constitutional Constitutional:: Present: no acute distress, comfortable - [facility] Exam HENMT: Present: normocephalic, atraumatic - Eye Exam Eyes:: Present: normal appearance both eyes and related structures - Neck Exam Neck:: Present: normal visual inspection - Respiratory Exam Respiratory:: Present: able to speak in complete sentences, lungs clear. Absent: rales, rhonchi, wheezing - Cardiovascular Exam Cardiac:: Present: S1, S2 - GI Exam GI:: Present: soft - Skin Exam Skin: Present: warm, no rash - Neurological Exam Neurological: Presen
--- NOTE | 2021-05-29 17:03 | PC.NURSE ---
16:45 - Discharge education provided. Questions encouraged and answered. Pt. and daughter v/u. 16:55 - IV removed from RA. Pt.tolerated well. 2X2 with coban in place. pt. and daughter educated on removing after 20 minutes, and holding pressure if bleeds when removed. Both V/U.
--- NOTE | 2021-05-29 17:15 | PC.NURSE ---
Pt. left unit via wheelchair accompanied by staff x1 to private vehicle where family member awaits.
--- NOTE | 2021-05-30 07:16 | HMH.DCSUM ---
General - General Admission date:: 05/27/21 Discharge date: 05/29/21 HPI HPI: 81-year-old female presented to the emergency department with her daughter due to sensation of smothering. Patient states this is happened before but a cause has not been identified. She has never been hospitalized for similar symptoms. In the emergency department patient was found to be mildly hypoxic with O2 sats in the high 80s. She had mild increased work of breathing. Labs were rather unremarkable. EKG showed frequent PACs. Chest x-ray showed interstitial edema. Patient was given IV Lasix without any improvement in her hypoxia. Due to persistent hypoxia patient was admitted for observation and further testing. This morning she denies having any fevers, cough, chills, myalgias, chest pain, lower extremity swelling. She has no dyspnea at rest but does note dyspnea on exertion. She has no personal history of lung problems. She does take a heart pill . But is not exactly sure what diagnosis has required this medicine. She has no smoking history. Patient lives by herself. Hospital Course Hospital Course: Patient was admitted for new hypoxia. Patient had no formal diagnosis of COPD but imaging findings are consistent with COPD. Patient's lung exam was benign. Echocardiogram and CT scan were more suggestive of mild fluid overload as a likely source of hypoxia then pneumonia or other pulmonary process. Patient was given Lasix initially and had adequate response although this did not change the patient's oxygen requirement. Pulmonology was consulted. They recommended finishing a course of antibiotics which the patient was being given for urinary tract infection and a short course of steroids. Pulmonology agreed that fluid overload was likely source of hypoxia. As patient was stable she was discharged home on supplemental oxygen. She will follow-up with her primary care physician next week Objective Vital signs: Temp Pulse Resp BP Pulse Ox 98.0 F 75 18 140/90 93 L 05/29/21 12:00 05/29/21 12:00 05/29/21 12:00 05/29/21 12:00 05/29/21 12:00 Results Labs on day of discharge: Labs from last 24 hours 05/29/21 05/29/21 05/29/21 14:00 11:59 10:04 POC Glucose 98 C-Reactive Protein 0.6 D Procalcitonin 0.059 Chlamy pneumoniae PCR Not detected Adenovirus (PCR) Not detected B. pertussis DNA (PCR) Not detected Coronavirus OC43 (PCR) Not detected Coronavirus HKU1 (PCR) Not detected Coronavirus 229E (PCR) Not detected Coronavirus NL63 (PCR) Not detected Human Metapneumovir PCR Not detected Influenza A (H1) PCR Not detected Influ A (H1N1/09) PCR Not detected Influenza A (H3) PCR Not detected Influenza Type A (PCR) Not detected Influenza Type B (PCR) Not detected M. pneumoniae (PCR) Not detected Parainfluenza 1 (PCR) Not detected Parainfluenza 2 (PCR) Not detected Parainfluenza 3 (PCR) Not detected Parainfluenza 4 (PCR) Not detected RSV (PCR) Not detected Entero/Rhino (PCR) Not detected Preliminary micro results at discharge 05/27/21 19:30 Blood Culture - Preliminary Blood NO GROWTH AFTER 48 HOURS 05/27/21 19:30 Blood Culture - Preliminary Blood NO GROWTH AFTER 48 HOURS 05/27/21 20:30 Urine Culture - Preliminary Urine,Clean Catch DS: Diagnosis - Discharge Diagnosis (1) Hypoxia Status: Acute (2) Dyspnea Status: Acute (3) UTI (urinary tract infection) Status: Suspected (4) Essential hypertension Status: Acute (5) Diabetes mellitus type 2 in nonobese Status: Acute (6) Pneumonia Status: Suspected Discharge Plan - Patient Discharge Instructions ACTIVITY: Continue current activity DIET: continue same diet Patient Instructions: DI for Urinary Tract Infection (UTI), DI for Shortness of Breath, Preventing the Spread of Coronavirus Discharge Instructions - Follow up Plan Follow up with
== END 2021-05-29 17:15 | disposition home or self-care (01) ==
LOC: UTC 18:55 → ER 19:08 → OB 21:32
PROVIDERS: Emergency Medicine; Internal Medicine Pulmonary Disease; Admitting Provider Family Medicine; Emergency Provider Emergency Medicine; PCP General Practice; Visit Provider Family Medicine
DX: J18.9 Pneumonia, unspecified organism; E11.9 Type 2 diabetes mellitus without complications; Z79.84 Long term (current) use of oral hypoglycemic drugs; E03.9 Hypothyroidism, unspecified; Z20.822 Contact with and (suspected) exposure to COVID-19; J96.01 Acute respiratory failure with hypoxia; Z79.899 Other long term (current) drug therapy; N39.0 Urinary tract infection, site not specified; Z88.8 Allergy status to other drugs, medicaments and biological substances
CPT/HCPCS: G0378; 36415; 71046; 71275; 80048; 80053; 80061; 81001; 82803; 82962; 83605; 83735; 83880; 84145; 84484; 85025; 85651; 86140; 87040; 87070; 87086; 87088; 87186; 87205; 87486; 87581; 87632; 87798; 93005; 93306; 94760; 94761; 96365; 96367; 99284; C9803; J1956; Q9967; U0003; U0005

== ENCOUNTER → 2021-07-01 09:58 | Outpatient (CLI) | payer MEDICARE, SELFPAY ==
[2021-07-01 10:40] VITALS: PULSE 68; PULSE 70
== END ==
PROVIDERS: PCP General Practice; Visit Provider Internal Medicine Pulmonary Disease
DX: R06.00 Dyspnea, unspecified (principal)
CPT/HCPCS: 94060; 94618; 94640; 94727; 94729; 94762

== ENCOUNTER → 2021-07-22 11:13 | Outpatient (CLI) | payer MEDICARE, SELFPAY | PROVIDERS: PCP General Practice; Visit Provider Internal Medicine Pulmonary Disease | DX: R06.09 Other forms of dyspnea (principal) | CPT/HCPCS: 94762 ==

== ENCOUNTER → 2022-11-24 12:54 | Outpatient (CLI) | payer MEDICARE, SELFPAY | PROVIDERS: PCP General Practice; Visit Provider Internal Medicine Pulmonary Disease | DX: R06.02 Shortness of breath (principal) | CPT/HCPCS: 94060 ==

== ENCOUNTER 2023-01-19 17:22 | Observation (INO) | payer MEDICARE, SELFPAY ==
[2023-01-19] VITALS (10 sets, daily range): BP systolic 115–163; BP diastolic 66–98; PULSE 61–103; RESP 24–28; TEMP 37.1; O2SAT 79–94; BMI 19.7
--- NOTE | 2023-01-19 17:58 | XR_ITS ---
PROCEDURE INFORMATION: Exam: XR Chest Exam date and time: 01/19/2023 6:16 PM Age: 82 years old Clinical indication: Shortness of breath; Patient HX: Patient states she has copd. ; Additional info: SOA TECHNIQUE: Imaging protocol: Radiologic exam of the chest. Views: 1 view. COMPARISON: CR XR CHEST 2V 05/27/2021 8:15 PM FINDINGS: Lungs: There is coarsening of the bronchovascular markings. Pleural spaces: Unremarkable. No pleural effusion. No pneumothorax. Heart/Mediastinum: Unremarkable. No cardiomegaly. Vasculature: There are calcifications of the aortic arch. Diaphragm: There is elevation of the left hemidiaphragm. Bones/joints: Unremarkable. IMPRESSION: No dense parenchymal consolidation pleural effusion or pneumothorax.
--- NOTE | 2023-01-19 18:02 | ECG_ITS ---
APPROVED REPORT Exam: Resting ECG HR:77 bpm ECG Measurements Heart Rate 77 AXES QRSd 107 QRS -4 QT 366 T 124 QTc 398 Conclusion ATRIAL FIBRILLATION VOLTAGE CRITERIA FOR LVH [MEETS CRITERIA IN ONE OF: R(aVL), S(V1), R(V5), R(V5/V6)+S(V1)] POSSIBLE SEPTAL MYOCARDIAL INFARCTION , OF INDETERMINATE AGE [30 ms Q WAVE IN V1/V2] MODERATE T-WAVE ABNORMALITY, CONSIDER LATERAL ISCHEMIA [-0.1+ mV T-WAVE IN I/aVL/V5/V6] ABNORMAL ECG UNCONFIRMED REPORT Electronically signed by : Lito Pimentel MD 01/20/2023 19:43:31
[2023-01-19 18:17] LABS: VBG Base Excess 0.1 mmol/L (-2.4-2.3); VBG HCO3 25.4 mmol/L (23-30); VBG PCO2 44.6 mmol/L (35-51); VBG PH 7.37 mmol/L (7.31-7.41); VBG PO2 50.4 mmol/L (28-40); VBG Total CO2 26.7 mmol/L (23-27)
[2023-01-19 18:19] LABS: Chloride 89 mmol/L (98-107); Sodium 129 mmol/L (136-145)
[2023-01-19 18:20] LABS: Basophils % 0.5 % (0.1-2.0); Eosinophils # 0.5 K/mm3 (0.0-0.4); Eosinophils % 6.4 % (0.1-12.0); Hematocrit 41.5 % (37.0-47.0); Hemoglobin 13.7 g/dL (12.2-16.2); Lymphocytes # 1.7 K/mm3 (0.7-4.5); Lymphocytes % 23.3 % (10-50); Mean Corpuscular HGB Conc 32.9 g/dL (31.8-35.4); Mean Corpuscular Hemoglobin 30.2 pg (27.0-31.2); Mean Corpuscular Volume 91.8 fl (81-99); Mean Platelet Volume 8.3 fl (7.4-10.4); Monocytes # 0.7 K/mm3 (0.1-1.0); Monocytes % 9.6 % (1.7-9.3); Neutrophils # 4.4 K/mm3 (1.8-7.8); Neutrophils % 60.1 % (37.0-80.0); Platelet Count 362 K/mm3 (142-424); Potassium 4.2 mmoL/L (3.5-5.1); Red Blood Count 4.52 M/mm3 (4.20-5.40); Red Cell Distribution Width 13.6 % (11.5-17.5); White Blood Count 7.4 K/mm3 (4.8-10.8)
[2023-01-19 18:22] LABS: Blood Urea Nitrogen 16 mg/dl (7-17); Creatinine Clearance Estimated 32 mL/min (50-200); Estimated Glomerular Filt Rate 60 ml/min (>60); GFR (African American) 72 ML/MIN (>60)
[2023-01-19 18:23] LABS: Anion Gap 19.2 mEq/L (5-15); Calcium 9.3 mg/dl (8.4-10.2); Carbon Dioxide 25 mmol/L (22.0-30.0); Glucose 130 mg/dl (74-100)
--- NOTE | 2023-01-19 18:27 | HMH.EDGENADL ---
Discharge Plan Disposition Patient Disposition: Admitted as Observation Clinical Impressions Clinical Impression: COPD exacerbation Discharge ED Provider: Abram Campbell General Adult HPI General Chief complaint: Shortness of Breath/Dyspnea Stated complaint: sob Time Seen by Provider: 01/19/23 18:21 Mode of Arrival: Family Vehicle Source of Information: Patient and Relative Limitations: No Limitations Description of Symptoms (Recalled from ER Triage Doc. by RN): Pt c/o SOA, cough, and dyspnea since yesterday. She wears 3LPM NC of home O2 d/t COPD. Pt reports the SOA started while at rest and has been worsening. She denies any cardiac of CHF hx. She does take inhalers for her COPD, Respirmat & Albuterol. She used her rescue inhaler last at 1500 today but it did not help. Report clear productive cough. Denies fever, chills, or body aches. History of Present Illness HPI narrative: Patient presents for evaluation of shortness of breath and increase of baseline nasal cannula oxygen requirement, symptoms are gradual in onset starting approximately yesterday, constant, worsening in course, no previous therapies, denies productive cough, fevers, chills, nausea, vomiting, chest pain, palpitations, no recent travel, no leg pain or leg swelling, no abdominal pain, no urinary symptoms, no sick contacts, and no recent travel. Related Data Home Medications Medication Instructions Recorded Confirmed acetaminophen 500 mg tablet 500 mg PO DAILY Pain 05/27/21 01/19/23 amlodipine 10 mg tablet 10 mg PO DAILY Hypertension 05/27/21 01/19/23 atorvastatin 40 mg tablet 40 mg PO HS hyperlipidemia 05/27/21 01/19/23 cholecalciferol (vitamin D3) 25 25 mcg PO DAILY Supplement 05/27/21 01/19/23 mcg (1,000 unit) tablet famotidine 10 mg tablet 10 mg PO BIDP PRN Acid Reflux 05/27/21 01/19/23 ferrous sulfate 325 mg (65 mg 325 mg PO BID Supplement 05/27/21 01/19/23 iron) tablet ibuprofen 200 mg tablet 200 mg PO DAILY Pain 05/27/21 01/19/23 levothyroxine 50 mcg capsule 50 mcg PO DAILY hyperthyroidism 05/27/21 01/19/23 lisinopril 10 1 tab PO BID Hypertension 05/27/21 01/19/23 mg-hydrochlorothiazide 12.5 mg tablet mecobalamin (vitamin B12) 1,000 1,000 mcg PO DAILY Supplement 05/27/21 01/19/23 mcg chewable tablet metformin 1,000 mg tablet 1,000 mg PO BID hyperglycemia 05/27/21 01/19/23 simethicone 80 mg chewable tablet 80 mg PO DAILY gas relief 05/27/21 01/19/23 vitamin E 670 mg (1,000 unit) 1,000 unit PO DAILY Supplement 05/27/21 01/19/23 capsule metoprolol succinate 25 mg 25 mg PO DAILY Hypertension 05/28/21 01/19/23 tablet,extended release 24 hr tiotropium 2.5 mcg-olodaterol 2.5 2 puff inhalation DAILY Copd 01/19/23 01/19/23 mcg/actuation mist for inhalation (Stiolto Respimat) Previous Rx's Medication Instructions Recorded albuterol sulfate 90 mcg/actuation 1 inh inhalation Q6H PRN shortness 11/22/21 aerosol inhaler of breath or wheezing 90 days #8.5 grams albuterol sulfate 90 mcg/actuation 2 inh inhalation Q4-6H PRN 05/15/22 breath activated powder shortness of breath or wheezing 90 inhaler,sensor days #1 ea Allergies Allergy/AdvReac Type Severity Reaction Status Date / Time codeine Allergy Verified 11/24/22 15:06 ibandronate sodium Allergy Verified 11/24/22 15:06 [From Boniva] Penicillins Allergy Verified 11/24/22 15:06 Sulfa (Sulfonamide Allergy Verified 11/24/22 15:06 Antibiotics) [facility] Disclaimer: The information contained in this section may have been updated after the patient was seen, as this information can be updated by other users. Medical History (Updated 01/19/23 @ 23:39 by OTTONIEL Mccloud) Chronic respiratory failure with hypoxia and hypercapnia COPD (chronic obstructive pulmonary disease) Dyspnea on exertion Nocturnal hypoxemia Pulmonary emphysema Unspecified kyphosis, site unspecified Surgical History History of appendecto
[2023-01-19 18:35] LABS: Troponin I 0.02 ng/ml (0.00-0.034)
[2023-01-19 19:33] LABS: Coronavirus 19, PCR Not Detected (NotDetected); Influenza A, PCR Not Detected (NotDetected); Influenza B, PCR Not Detected (NotDetected)
[2023-01-19 21:56] LABS: Troponin I 0.02 ng/ml (0.00-0.034)
--- NOTE | 2023-01-19 22:01 | PC.NURSE ---
on phone with hospitalist. household appliances salesperson notified of admission
[2023-01-19 22:13] LABS: Reflex Lactic Add Lactic Reflex
[2023-01-19 23:14] LABS: Hemoglobin A1C 5.9 % (4.0-6.0)
[2023-01-19 23:27] LABS: Thyroid Stimulating Hormone 1.62 uIU/mL (0.465-4.68)
--- NOTE | 2023-01-19 23:37 | EXP.HP ---
History of Present Illness *Admission Date: 01/19/23 *Reason for visit:: COPD exacerbation *History of present illness: 82 year old female presented to the ED for c/o SOB since last night. PMHX COPD, HTN, HLD, hypothyroid and DM. Uses 3 L NC at home. Presented to the ED hypoxic requiring 6L. She was given several breathing treatments and IV steroids without improvement. She denies any recent sick contact. Her ED work up was unremarkable and her Chest xray did not demonstrate pneumonia. The ED physician spoke with the hospitalist team regarding admission. Due to the increased oxygen requirement the patient was admitted to the medical floor. She will be started on IV broad spectrum antibiotics, steroids, and duonebs. [facility] Disclaimer: The information contained in this section may have been updated after the patient was seen, as this information can be updated by other users. Medical History (Updated 01/19/23 @ 23:39 by OTTONIEL Mccloud) Chronic respiratory failure with hypoxia and hypercapnia COPD (chronic obstructive pulmonary disease) Dyspnea on exertion Nocturnal hypoxemia Pulmonary emphysema Unspecified kyphosis, site unspecified Surgical History History of appendectomy History of cardiac cath History of hernia repair History of hysterectomy Hx of cholecystectomy Family History Other No significant family history Social History (Updated 01/19/23 @ 23:17 by Al Nolasco RN) Smoking Status: Never smoker alcohol intake: never current occupational status: retired Travel in the last 8 weeks: None housing: house Review of Systems Review of Systems Review of systems:: pertinent systems reviewed and negative unless documented below *Cardiovascular Cardiovascular: Reports system reviewed and no additional complaints, except as documented, Reports dyspnea and Reports dyspnea on exertion *Respiratory Respiratory: Reports dyspnea and Reports dyspnea on exertion *Gastrointestinal Gastrointestinal: Reports system reviewed and no additional complaints, except as documented *Genitourinary Genitourinary: Reports system reviewed and no additional complaints, except as documented *Musculoskeletal Musculoskeletal: Reports system reviewed and no additional complaints, except as documented *Neurologic Neurologic: Reports system reviewed and no additional complaints, except as documented Meds Home Medications and Allergies Home Medications Medication Instructions Recorded Confirmed Type acetaminophen 500 mg tablet 500 mg PO DAILY Pain 05/27/21 01/19/23 History amlodipine 10 mg tablet 10 mg PO DAILY High Blood Pressure 05/27/21 01/19/23 History atorvastatin 40 mg tablet 40 mg PO HS Cholesterol 05/27/21 01/19/23 History cholecalciferol (vitamin D3) 25 25 mcg PO DAILY Supplement 05/27/21 01/19/23 History mcg (1,000 unit) tablet mecobalamin (vitamin B12) 1,000 1,000 mcg PO DAILY Supplement 05/27/21 01/19/23 History mcg chewable tablet vitamin E 670 mg (1,000 unit) 1,000 unit PO DAILY Supplement 05/27/21 01/19/23 History capsule metoprolol succinate 25 mg 25 mg PO DAILY High Blood Pressure 05/28/21 01/19/23 History tablet,extended release 24 hr tiotropium 2.5 mcg-olodaterol 2.5 2 puff inhalation DAILY Copd 01/19/23 01/19/23 History mcg/actuation mist for inhalation (Stiolto Respimat) albuterol sulfate 90 mcg/actuation 2 inh inhalation Q4HP PRN 01/20/23 01/20/23 History breath activated powder shortness of breath or wheezing inhaler,sensor levothyroxine 50 mcg tablet 50 mcg PO DAILY Thyroid 01/20/23 01/20/23 History lisinopril 20 1 tab PO DAILY High Blood Pressure 01/20/23 01/20/23 History mg-hydrochlorothiazide 12.5 mg tablet metformin 500 mg tablet 500 mg PO BIDWMEAL Diabetes 01/20/23 01/20/23 History New Prescriptions to Start Prescriptions: Allergies Allergy/AdvReac Type Se
[2023-01-20] VITALS (16 sets, daily range): BP systolic 109–150; BP diastolic 58–90; PULSE 85–117; RESP 16–21; TEMP 36.4–36.7; O2SAT 88–94
[2023-01-20 01:02] LABS: Troponin I 0.02 ng/ml (0.00-0.034)
--- NOTE | 2023-01-20 05:16 | PC.NURSE ---
weaned O2 to 3L per NC with sats > 90%
[2023-01-20 06:00] LABS: Chloride 91 mmol/L (98-107); Sodium 127 mmol/L (136-145)
[2023-01-20 06:02] LABS: Blood Urea Nitrogen 15 mg/dl (7-17); Creatinine Clearance Estimated 32 mL/min (50-200); Estimated Glomerular Filt Rate 68 ml/min (>60); GFR (African American) 83 ML/MIN (>60)
[2023-01-20 06:03] LABS: Calcium 8.5 mg/dl (8.4-10.2); Carbon Dioxide 28 mmol/L (22.0-30.0); Glucose 153 mg/dl (74-100)
[2023-01-20 06:12] LABS: Lymphocytes # 0.6 K/mm3 (0.7-4.5); Monocytes # 0.1 K/mm3 (0.1-1.0)
[2023-01-20 06:25] LABS: Basophils % 0.3 % (0.1-2.0); Eosinophils % 0.3 % (0.1-12.0); Hematocrit 36.3 % (37.0-47.0); Hemoglobin 11.9 g/dL (12.2-16.2); Lymphocytes % 10.8 % (10-50); Mean Corpuscular HGB Conc 32.8 g/dL (31.8-35.4); Mean Corpuscular Hemoglobin 29.9 pg (27.0-31.2); Mean Corpuscular Volume 91.2 fl (81-99); Mean Platelet Volume 8.4 fl (7.4-10.4); Monocytes % 1.7 % (1.7-9.3); Neutrophils # 4.7 K/mm3 (1.8-7.8); Neutrophils % 86.9 % (37.0-80.0); Platelet Count 312 K/mm3 (142-424); Red Blood Count 3.98 M/mm3 (4.20-5.40); Red Cell Distribution Width 13.6 % (11.5-17.5); White Blood Count 5.4 K/mm3 (4.8-10.8)
[2023-01-20 06:27] LABS: MANUAL DIFFERENTIAL MANUAL DIFFERENTIAL (MANUAL DIFF)
--- NOTE | 2023-01-20 07:33 | HMH.PHAINT1 ---
Pharmacy Intervention Comments: MEDICATION RECONCILIATION COMPLETED ON PATIENT USING EXTERNAL FILL HISTORY FROM PHARMACY AND LIST FROM PULMONOLOGY OFFICE. -ARACELI MULLINSD
[2023-01-20 08:11] LABS: Lymphocytes % 10 % (10-50); Neutrophils % 89 % (42-76); Total Cells Counted 100
[2023-01-20 08:12] LABS: Anisocytosis 1+; Platelet Estimate Normal; RBC Morphology Normal
--- NOTE | 2023-01-20 09:10 | PC.NURSE ---
in room at 1010
--- NOTE | 2023-01-20 10:12 | HMH.PTEV ---
Physical Therapy Evaluation Rehab PT IP Evaluation Start: 01/20/23 09:21 Freq: ONCE Status: Active Protocol: Document 01/20/23 10:07 BHAVESH (Rec: 01/20/23 10:11 BHAVESH [id number]) Subjective/History History History 82 yowf adm to [facility] with COPD exac, hyponatremia, SIRS. She has hx of COPD, HTN, HLD, hypothyroid and DM. She uses 3L/min of O2 va NC at all times at baseline. She reports she lives alone in a trailer, 3 steps to enter, and she uses a RW for all ambulation at baseline. Subjective Subjective Pt reports feeling a little beter this am, but remains tired. Rehab PT IP Eval Objective Appearance Patient Behavior Appropriate Patient Orientation Person,Place,Time Difficulty following instructions none Speech Pattern Clear Ambulation Patient Able to Ambulate Yes Ambulation Observation IP General Gait Pattern Observation Wide Based Gait Ambulation Distance (feet) 20 Ambulation Assistive Device Rolling Walker Ambulation Ability Supervision/Stand by Balance Ability to Arise Able, uses arms to help Sitting Balance Steady, safe Standing Balance Steady, wide stance Dynamic Sitting Balance Ability Good Dynamic Standing Balance Ability Good Transfers Bed Transfer Ability Supervision/Stand by Chair Transfer Ability Supervision/Stand by Sit to Stand Bed Transfer Ability Supervision/Stand by Sit to Stand Chair Transfer Ability Supervision/Stand by ROM All Extremities PT ROM Status WFL MMT All Extremities PT MMT WFL Rehab PT IP prob,goals,plan Problems Date of Evaluation: 01/20/23 Discharge Plan PT Discharge Plan Pt appears to be at or close to baseline for all mobility and is appropriate to return home once medically stable for d/c. Recommend Home Health as needed after return home. G -code Required No Eval Complexity Eval Charge Codes 54427 - High Complexity PHYSICIAN CERTIFICATION: I certify the specified therapy services for Tomas Del Real are required, authorized, and reviewed every 30 days.
--- NOTE | 2023-01-20 10:18 | HMH.OTEV ---
OT Inpatient Evaluation Rehab OT IP Evaluation Start: 01/20/23 09:21 Freq: ONCE Status: Active Protocol: Document 01/20/23 09:54 [facility] (Rec: 01/20/23 10:18 [facility] [id number]) Rehab OT IP Assessment Subjective History Pt oriented x 4 on arrival. Pt agreeable to engage in therapy evaluation. Pt admitted on 01/19/23 due to COPD exacerbation. Pt is an 82 year old female presented to the ED for c/o SOB since last night. PMHX COPD, HTN, HLD, hypothyroid and DM. Uses 3 L NC at home. Prior to being in the hospital, pt lived at home alone. Pt lived in a trailer that requires 3 steps to enter. Pt claims she was independent with all ADLs . She also reports she was independent with most IADLs such as cooking and cleaning. However, she only cooked small microwaveable meals. Her daughter did complete grocery shopping for her and checked on her often. Pt used a rolling walker during all functional transfers. She did not drive. Subjective I could do what I needed to do. Objective Patient Orientation Person,Place,Birthday,Year Upper Extremity Gross ROM WFL Bed Mobility bed mobility-scooting,bed mobility - supine/sit,bed mobility - rolling Assist Level Supervision/Stand by Transfer Training Sit/Stand Transfer Assist Level Supervision/Stand by Rehab OT IP prob,goals,plan Problems Date of Evaluation: 01/20/23 Rehab Potential Rehab Potential Innapropriate for Skilled Therapy Equipment Needs Assistive Devices Rolling / Wheeled Walker Discharge Plan OT Discharge Plan Pt appears to be at her baseline with functional transfers and ADL independence . Pt can return home with Home health evaluation for OT for environmental safety. Eval Complexity
--- NOTE | 2023-01-20 14:43 | SW/DCPLANNER ---
Addendum entered by Sherrie Caba 01/21/23 15:39: Sapna medeiros/ [facility] stated that services will begin tomorrow for this patient. Addendum entered by Sherrie Caba 01/21/23 11:43: Patient information/order has been faxed to [facility]. Original Note: PT/OT evaluated patient and recommended home w/ home health services. I spoke with patient regarding home health: she is agreeable to services and has used [facility] in the past. Patient also stated that she has home O2. Patient information/order will be faxed to [facility] once medically stable for discharge. Patient is expected to discharge tomorrow pending no setbacks.
--- NOTE | 2023-01-20 16:53 | PC.NURSE ---
Pt offers no complaints. Pt tolerating 3 L of oxygen well, Pt becomes SOB and O2 decreases slightly when up to bedside commode. Pt transfers to bedside commode with standby assist. Pt seems to rest well and denies pain
--- NOTE | 2023-01-20 18:06 | EXP.ACUTE.PN ---
Subjective *Date: 01/20/23 *Time: 18:06 Interval history: Denies any chest pain. Still short of breath. Tolerating 3 to 4 L this morning. Tolerating p.o. intake. Complains of still feeling quite weak but feeling somewhat better than when she came into the ER. Denies any dysuria, nausea, chest pain Medical Exam Vital signs and Labs for Last 24 Hours: Vital Signs Temp Pulse Pulse Resp BP BP Pulse Ox 01/20/23 17:00 01/20/23 16:00 93 L 01/20/23 16:00 93 L 01/20/23 16:00 97.6 F 101 H 18 130/65 92 L 01/20/23 14:39 102 H 01/20/23 14:39 101 H 01/20/23 14:35 01/20/23 12:38 01/20/23 11:00 01/20/23 09:00 01/20/23 08:00 111 H 91 L 01/20/23 08:00 97.8 F 117 H 20 123/90 92 L 01/20/23 07:10 88 L 01/20/23 06:55 85 01/20/23 06:55 92 H 01/20/23 06:55 90 L 01/20/23 06:41 01/20/23 05:00 92 L 01/20/23 04:30 94 L 01/20/23 05:00 01/20/23 03:00 01/20/23 00:53 01/20/23 00:00 97.9 F 95 H 16 132/84 93 L 01/20/23 00:17 91 H 01/20/23 00:17 94 H 01/20/23 00:17 91 L 01/19/23 22:39 90 01/19/23 23:00 01/19/23 22:26 98.8 F 74 24 161/74 H 01/19/23 22:00 79 163/79 H 87 L 01/19/23 21:31 75 156/66 H 87 L 01/19/23 21:00 79 143/95 H 90 L 01/19/23 20:30 69 149/89 H 88 L 01/19/23 20:01 61 139/66 90 L 01/19/23 19:31 83 115/69 89 L O2 Del Method O2 Flow Rate 01/20/23 17:00 Nasal Cannula 3 01/20/23 16:00 Nasal Cannula 3 01/20/23 16:00 Nasal Cannula 3 01/20/23 16:00 Nasal Cannula 3 01/20/23 14:39 01/20/23 14:39 01/20/23 14:35 Nasal Cannula 3 01/20/23 12:38 Nasal Cannula 3 01/20/23 11:00 Nasal Cannula 3 01/20/23 09:00 Nasal Cannula 3 01/20/23 08:00 Nasal Cannula 3 01/20/23 08:00 Nasal Cannula 3 01/20/23 07:10 Nasal Cannula 3 01/20/23 06:55 01/20/23 06:55 01/20/23 06:55 Nasal Cannula 3 01/20/23 06:41 Nasal Cannula 3 01/20/23 05:00 Nasal Cannula 3 01/20/23 04:30 Nasal Cannula 4 01/20/23 05:00 Nasal Cannula 3 01/20/23 03:00 Nasal Cannula 5 01/20/23 00:53 Nasal Cannula 5 01/20/23 00:00 Nasal Cannula 5 01/20/23 00:17 01/20/23 00:17 01/20/23 00:17 Nasal Cannula 4.5 01/19/23 22:39 01/19/23 23:00 Nasal Cannula 5 01/19/23 22:26 Nasal Cannula 4 01/19/23 22:00 Nasal Cannula 4 01/19/23 21:31 Nasal Cannula 4 01/19/23 21:00 Nasal Cannula 4 01/19/23 20:30 Nasal Cannula 4 01/19/23 20:01 Nasal Cannula 4 01/19/23 19:31 Nasal Cannula 4 Intake and Output 01/20/23 01/20/23 01/20/23 07:59 15:59 23:59 Intake Total 600 / 1200 600 / 1200 Output Total 0 / 300 300 / 300 0 / 300 Balance 0 / 900 300 / 900 600 / 900 Intake: Intake, Oral Amount 600 / 1200 600 / 1200 Output: Output, Urine Amount 0 / 300 300 / 300 0 / 300 Other: Number of Unmeasured Voids 1 0 150 Laboratory Results - last 24 hr 01/19/23 18:02: VBG pH 7.37, VBG pCO2 44.6, VBG pO2 50.4 H, VBG HCO3 25.4, VBG Total CO2 26.7, VBG O2 Saturation 83.0 H, VBG Base Excess 0.1 01/19/23 18:03: WBC 7.4, RBC 4.52, Hgb 13.7, Hct 41.5, MCV 91.8, MCH 30.2, MCHC 32.9, RDW 13.6, Plt Count 362, MPV 8.3, Neut % (Auto) 60.1, Lymph % (Auto) 23.3, [place] % (Auto) 9.6 H, Eos % (Auto) 6.4, Baso % (Auto) 0.5, Neut # (Auto) 4.4, Lymph # (Auto) 1.7, [place] # (Auto) 0.7, Eos # (Auto) 0.5 H, Baso # (Auto) 0.0, Sodium 129 L, Potassium 4.2, Chloride 89 L, Carbon Dioxide 25, Anion Gap 19.2 H, BUN 16, Creatinine 0.90, Estimated Creat Clear 32, Estimated GFR 60, Est GFR ( Amer) 72, Glucose 130 H, Lactate 3.0 H, Calcium 9.3, Troponin I 0.02 01/19/23 19:30: SARS-CoV-2 (PCR) Not detected, Influenza A Untype (PCR) Not detected, Influenza Type B (PCR) Not detected 01/19/23 21:17: Troponin I 0.02 01/19/23 22:25: Hemoglobin A1c 5.9, Lactate 1.0, TSH 1.62 01/20/23 00:15: Troponin I 0.
[2023-01-21 04:00] VITALS: BP 152/77; PULSE 91; RESP 21; TEMP 36.7; O2SAT 90
[2023-01-21 06:08] LABS: Hematocrit 36.4 % (37.0-47.0); Hemoglobin 11.7 g/dL (12.2-16.2); Lymphocytes # 0.5 K/mm3 (0.7-4.5); Lymphocytes % 5.9 % (10-50); Mean Corpuscular HGB Conc 32.2 g/dL (31.8-35.4); Mean Corpuscular Hemoglobin 29.7 pg (27.0-31.2); Mean Corpuscular Volume 92.4 fl (81-99); Mean Platelet Volume 8.5 fl (7.4-10.4); Monocytes # 0.5 K/mm3 (0.1-1.0); Monocytes % 5.2 % (1.7-9.3); Neutrophils # 7.9 K/mm3 (1.8-7.8); Neutrophils % 88.9 % (37.0-80.0); Platelet Count 303 K/mm3 (142-424); Red Blood Count 3.93 M/mm3 (4.20-5.40); Red Cell Distribution Width 13.8 % (11.5-17.5); White Blood Count 8.9 K/mm3 (4.8-10.8)
[2023-01-21 06:10] VITALS: PULSE 79; PULSE 82; O2SAT 96
[2023-01-21 06:15] LABS: Chloride 92 mmol/L (98-107); Potassium 4.3 mmoL/L (3.5-5.1); Sodium 130 mmol/L (136-145)
[2023-01-21 06:17] LABS: Alanine Aminotransferase 19 U/L (12-78); Alkaline Phosphatase 52 U/L (38-126); Anion Gap 13.3 mEq/L (5-15); Aspartate Amino Transferase 23 U/L (14-36); Bilirubin,Total 0.2 mg/dl (0.2-1.3); Blood Urea Nitrogen 15 mg/dl (7-17); Carbon Dioxide 29 mmol/L (22.0-30.0); Creatinine Clearance Estimated 32 mL/min (50-200); Estimated Glomerular Filt Rate 68 ml/min (>60); GFR (African American) 83 ML/MIN (>60)
[2023-01-21 06:18] LABS: Albumin Level 3.2 g/dl (3.5-5.0); Calcium 8.4 mg/dl (8.4-10.2); Globulin 3.1 g/dL (1.3-3.2); Glucose 185 mg/dl (74-100); Magnesium 1.9 mg/dl (1.6-2.3); Total Protein,Serum 6.3 g/dl (6.3-8.2)
[2023-01-21 06:25] LABS: MANUAL DIFFERENTIAL MANUAL DIFFERENTIAL (MANUAL DIFF)
[2023-01-21 07:32] LABS: Lymphocytes % 10 % (10-50); Monocytes % 6 % (2-9); Neutrophils % 84 % (42-76); Platelet Estimate Normal; RBC Morphology Normal; Total Cells Counted 100
[2023-01-21 07:35] VITALS: BP 129/73; PULSE 113; RESP 20; TEMP 37.1; O2SAT 88
[2023-01-21 08:00] VITALS: O2SAT 90
--- NOTE | 2023-01-21 08:10 | EXP.DC.SUM ---
General Admission date:: 01/19/23 Discharge date: 01/21/23 HPI HPI HPI: 82 year old female presented to the ED for c/o SOB since last night. PMHX COPD, HTN, HLD, hypothyroid and DM. Uses 3 L NC at home. Presented to the ED hypoxic requiring 6L. She was given several breathing treatments and IV steroids without improvement. She denies any recent sick contact. Her ED work up was unremarkable and her Chest xray did not demonstrate pneumonia. The ED physician spoke with the hospitalist team regarding admission. Due to the increased oxygen requirement the patient was admitted to the medical floor. She will be started on IV broad spectrum antibiotics, steroids, and duonebs. Hospital Course Hospital Course Hospital Course: 82 year old female presented to the ED for c/o SOB since last night. PMHX COPD, HTN, HLD, hypothyroid and DM. Uses 3 L NC at home. Presented to the ED hypoxic requiring 6L. She was given several breathing treatments and IV steroids without improvement. She denies any recent sick contact. Her ED work up was unremarkable and her Chest xray did not demonstrate pneumonia. Improved oxygen requirement, back to base line O2 needs. PT and OT evaluated during admission. Patient at baseline level of function. Stable for discharge home. Plan and problems addressed as follows: COPD EXACERBATION Chronic hypoxemic respiratory failure - Patient was initiated on 6 L nasal cannula oxygen on arrival. Able to wean to 3 L by day of discharge which is her baseline oxygen requirement. Started on Solu-Medrol IV, DuoNebs, IV Rocephin and azith for COPD exacerbation. Pulmonology was consulted, appreciate their recommendations. Given improvement in patient's condition, weaned to levofloxacin 500mg daily for ease of dosing and due to penicilling allergy to complete 5-day total course of antibiotics on discharge. Also wean steroids to prednisone 40 mg daily to complete total of 5-day course upon discharge. Continue home inhaler regimen including Stiolto and DuoNebs. Plan for follow-up with pulmonology. DM -A1c 5.9. Diabetic diet during admission. Recommend holding Metformin at discharge given level of control and age/co-morbidities. HTN HLD HYPOTHYROID -Continue home metoprolol succinate 25 mg, increase to BID due to tachycardia. Continue Lipitor 40 mg at night. TSH 1.62 at time of admission. Continue home levothyroxine 50 mcg/day. Continue lisinopril-HCTZ. Discontinue Amlodipine. Spent 30 minutes in discharge counseling and direct care with patient. Exam Data for Last 24 hours Vital signs and Labs for Last 24 Hours: Temp Pulse Resp BP Pulse Ox O2 Del Method O2 Flow Rate 98.7 F 113 H 20 129/73 88 L Nasal Cannula 2 01/21/23 07:35 01/21/23 07:35 01/21/23 07:35 01/21/23 07:35 01/21/23 07:35 01/21/23 07:35 01/21/23 07:35 FiO2 32 01/20/23 20:05 Laboratory Results - last 24 hr 01/20/23 05:31: Total Counted 100, Neutrophils % (Manual) 89 H, Band Neutrophils % 1.0, Lymphocytes % (Manual) 10, Platelet Estimate Normal, RBC Morphology Normal, Anisocytosis 1+ 01/21/23 05:32: WBC 8.9 D, RBC 3.93 L, Hgb 11.7 L, Hct 36.4 L, MCV 92.4, MCH 29.7, MCHC 32.2, RDW 13.8, Plt Count 303, MPV 8.5, Neut % (Auto) 88.9 H, Lymph % (Auto) 5.9 L, [place] % (Auto) 5.2, Eos % (Auto) 0.0 L, Baso % (Auto) 0.0 L, Neut # (Auto) 7.9 H, Lymph # (Auto) 0.5 L, [place] # (Auto) 0.5, Eos # (Auto) 0.0, Baso # (Auto) 0.0, Total Counted 100, Neutrophils % (Manual) 84 H, Lymphocytes % (Manual) 10, Monocytes % (Manual) 6, Platelet Estimate Normal, RBC Morphology Normal, Sodium 130 L, Potassium 4.3, Chloride 92 L, Carbon Dioxide 29, Anion Gap 13.3, BUN 15, Creatinine 0.80, Estimated Creat Clear 32, Estimated GFR 68, Est GFR ( Amer) 83, Glucose 185 H, Calcium 8.4, Magnesium 1.9, Total Bilirubin 0.2, AST 23, ALT 19, Alkaline Phosphatase 52, Total Protein 6.3, Albumin 3.2 L, Globulin 3.1, Albumin/Globulin Ratio 1.0 L I & O for Last 24 hours: Intake & Output 0
--- NOTE | 2023-01-21 09:33 | EXP.PULM.CON ---
[facility] Disclaimer: The information contained in this section may have been updated after the patient was seen, as this information can be updated by other users. Medical History (Updated 01/21/23 @ 11:47 by Maxi Srivastava MD) Acute and chronic respiratory failure Chronic respiratory failure with hypoxia and hypercapnia COPD (chronic obstructive pulmonary disease) Dyspnea on exertion Nocturnal hypoxemia Pulmonary emphysema Unspecified kyphosis, site unspecified Surgical History History of appendectomy History of cardiac cath History of hernia repair History of hysterectomy Hx of cholecystectomy Family History Other No significant family history Social History (Updated 01/19/23 @ 23:17 by Al Nolasco, MISAEL) Smoking Status: Never smoker alcohol intake: never current occupational status: retired Travel in the last 8 weeks: None housing: house Review of Systems Constitutional Constitutional: Reports fatigue Eyes Eyes: Denies eye discharge, Denies dry eyes, Denies irritation and Denies itchy eyes ENT Ears, Nose, Mouth, and Throat: Denies epistaxis, Denies facial pain, Denies lip swelling and Denies throat swelling *Cardiovascular Cardiovascular: Reports dyspnea and Reports dyspnea on exertion *Respiratory Respiratory: Reports chest congestion, Reports cough, Reports dyspnea, Reports dyspnea on exertion, Denies excessive phlegm production and Reports wheezing *Gastrointestinal Gastrointestinal: Denies abdominal pain, Denies belching and Denies cramping *Musculoskeletal Musculoskeletal: Reports back pain, Reports myalgias and Reports other (No small joint swelling or Pain) *Neurologic Neurologic: Reports system reviewed and no additional complaints, except as documented Psychiatric Psychiatric: Denies homicidal ideation and Denies suicidal ideation Endocrine Endocrine: Reports fatigue and Denies heat intolerance Hematologic/Lymphatic Hematologic/Lymphatic: Denies easy bleeding and Denies lymphadenopathy Allergic/Immunologic Allergic/Immunologic: Denies itchy eyes, Denies lip swelling, Denies throat swelling and Reports wheezing Pulmonology Exam Inpatient Vital signs and Labs for Last 24 Hours: Temp Pulse Resp BP Pulse Ox O2 Del Method O2 Flow Rate 98.7 F 113 H 20 129/73 88 L Nasal Cannula 3 01/21/23 07:35 01/21/23 07:35 01/21/23 07:35 01/21/23 07:35 01/21/23 07:35 01/21/23 08:33 01/21/23 08:33 FiO2 32 01/20/23 20:05 Laboratory Results - last 24 hr 01/21/23 05:32: WBC 8.9 D, RBC 3.93 L, Hgb 11.7 L, Hct 36.4 L, MCV 92.4, MCH 29.7, MCHC 32.2, RDW 13.8, Plt Count 303, MPV 8.5, Neut % (Auto) 88.9 H, Lymph % (Auto) 5.9 L, [place] % (Auto) 5.2, Eos % (Auto) 0.0 L, Baso % (Auto) 0.0 L, Neut # (Auto) 7.9 H, Lymph # (Auto) 0.5 L, [place] # (Auto) 0.5, Eos # (Auto) 0.0, Baso # (Auto) 0.0, Total Counted 100, Neutrophils % (Manual) 84 H, Lymphocytes % (Manual) 10, Monocytes % (Manual) 6, Platelet Estimate Normal, RBC Morphology Normal, Sodium 130 L, Potassium 4.3, Chloride 92 L, Carbon Dioxide 29, Anion Gap 13.3, BUN 15, Creatinine 0.80, Estimated Creat Clear 32, Estimated GFR 68, Est GFR ( Amer) 83, Glucose 185 H, Calcium 8.4, Magnesium 1.9, Total Bilirubin 0.2, AST 23, ALT 19, Alkaline Phosphatase 52, Total Protein 6.3, Albumin 3.2 L, Globulin 3.1, Albumin/Globulin Ratio 1.0 L I & O for Labs for Last 24 Hours: Intake & Output 01/18/23 01/19/23 01/20/23 01/21/23 23:59 23:59 23:59 23:59 Intake Total 1200 / 1200 540 / 540 Output Total 300 / 300 Balance 900 / 900 540 / 540 Weight 108 lb Constitutional: Present moderate distress Head: Present normocephalic and atraumatic ENT: Present normal exam, normal oropharynx and mucous membranes moist Neck: Present normal inspection and full ROM Respiratory: Present wheezes, crackles, diminished air movement and able to speak in complete se
[2023-01-21 09:49] VITALS: PULSE 110; PULSE 97
--- NOTE | 2023-01-22 14:26 | CARE MANAGER ---
Called and spoke to patient's daughter regarding recent discharge. She stated patient is doing well, was able to start new medication prescribed at discharge and was aware of f/u appt. No concerns or questions at time of call.
== END 2023-01-21 12:15 | disposition home health service (06) ==
LOC: ER 18:00 → ICU 22:26
PROVIDERS: Internal Medicine Adolescent Medicine; Nurse Practitioner Critical Care Medicine; Admitting Provider Internal Medicine; Emergency Provider Emergency Medicine; PCP General Practice; Visit Provider Internal Medicine
DX: J44.1 Chronic obstructive pulmonary disease with (acute) exacerbation; E11.9 Type 2 diabetes mellitus without complications; I10 Essential (primary) hypertension; E78.5 Hyperlipidemia, unspecified; E03.9 Hypothyroidism, unspecified; E78.2 Mixed hyperlipidemia; Z79.899 Other long term (current) drug therapy
CPT/HCPCS: 36415; 71045; 80048; 80053; 82803; 83036; 83605; 83735; 84443; 84484; 85007; 85025; 87040; 87636; 93005; 94640; 97163; 97166; 99285; G0378; J0456; J0696

== ENCOUNTER 2023-01-31 21:43 | Observation (INO) | payer MEDICARE, SELFPAY ==
[2023-01-31] VITALS (8 sets, daily range): BP systolic 109–171; BP diastolic 91–115; PULSE 87–120; RESP 22–26; TEMP 36.4–36.7; O2SAT 78–93; BMI 19.7
--- NOTE | 2023-01-31 21:55 | ECG_ITS ---
APPROVED REPORT Exam: Resting ECG HR:112 bpm ECG Measurements Heart Rate 112 AXES QRSd 113 QRS -4 QT 332 T 134 QTc 398 Conclusion ATRIAL FIBRILLATION WITH RAPID VENTRICULAR RESPONSE VOLTAGE CRITERIA FOR LVH [MEETS CRITERIA IN ONE OF: R(aVL), S(V1), R(V5), R(V5/V6)+S(V1)] POSSIBLE SEPTAL MYOCARDIAL INFARCTION , OF INDETERMINATE AGE [30 ms Q WAVE IN V1/V2] MODERATE T-WAVE ABNORMALITY, CONSIDER LATERAL ISCHEMIA [-0.1+ mV T-WAVE IN I/aVL/V5/V6] ABNORMAL ECG UNCONFIRMED REPORT Electronically signed by : Lito Pimentel MD 02/02/2023 15:52:47
--- NOTE | 2023-01-31 22:03 | XR_ITS ---
PROCEDURE INFORMATION: Exam: XR Chest Exam date and time: 01/31/2023 10:06 PM Age: 82 years old Clinical indication: Dyspnea TECHNIQUE: Imaging protocol: Radiologic exam of the chest. Views: 1 view. COMPARISON: CR XR CHEST PORTABLE 01/19/2023 6:16 PM FINDINGS: Lungs: Granulomatous changes. COPD. Interstitial prominence could reflect mild pneumonia. No consolidation. Pleural spaces: Unremarkable. No pleural effusion. No pneumothorax. Heart/Mediastinum: Unremarkable. No cardiomegaly. Bones/joints: Unremarkable. IMPRESSION: Interstitial prominence could reflect mild pneumonia. No consolidation.
--- NOTE | 2023-01-31 22:04 | [facility].EDGENADL ---
Discharge Plan Disposition Patient Disposition: Admitted Prescriptions Prescriptions: No Action ipratropium-albuterol 0.5 mg-3 mg(2.5 mg base)/3 mL solution for nebulization 3 ml inhalation QID PRN (Reason: shortness of breath or wheezing) 90 Days Qty: 270 3RF atorvastatin 40 MG tablet 40 mg PO HS vitamin E 1,000 UNIT capsule 1,000 unit PO DAILY cholecalciferol (vitamin D3) 25 MCG tablet 25 mcg PO DAILY mecobalamin (vitamin B12) 1,000 MCG tablet,chewable 1,000 mcg PO DAILY Stiolto Respimat 2.5-2.5 mcg/actuation mist 2 puff INHALATION DAILY metformin 500 mg tablet 500 mg PO BIDWMEAL lisinopril-hydrochlorothiazide 20-12.5 mg tablet 1 tab PO DAILY levothyroxine 50 mcg tablet 50 mcg PO DAILY albuterol sulfate 90 mcg/actuation aero powdr breath act w/sensor 2 inh IH Q4HP PRN (Reason: shortness of breath or wheezing) metoprolol succinate 25 MG tablet extended release 24 hr 25 mg PO BID 30 Days Qty: 60 0RF Referrals Follow up/Referrals: Andrea Durand [Primary Care Provider] - See instructions Clinical Impressions Clinical Impression: Acute exacerbation of chronic obstructive pulmonary disease, Acute respiratory failure with hypoxemia Discharge ED Provider: Nathalie Winslow General Adult HPI General Chief complaint: Shortness of Breath/Dyspnea Stated complaint: SOA Time Seen by Provider: 01/31/23 21:56 History of Present Illness HPI narrative: Patient is an 82-year-old female here with dyspnea. She was recently in the hospital for COPD exacerbation where she was started on nebs steroids antibiotics had significant improvement she was discharged about 2 weeks ago completed a 5-day course of Levaquin and had been doing well until yesterday at which point she began to have worsening shortness of breath and hypoxia. She is on 3 L nasal cannula at home and her oxygen saturations were in the mid 70s on that at home. She denies any increased cough sputum production fevers chills or any other symptoms. No lower extremity swelling no history of heart failure. Related Data Home Medications Medication Instructions Recorded Confirmed atorvastatin 40 mg tablet 40 mg PO HS Cholesterol 05/27/21 01/31/23 cholecalciferol (vitamin D3) 25 25 mcg PO DAILY Supplement 05/27/21 01/31/23 mcg (1,000 unit) tablet mecobalamin (vitamin B12) 1,000 1,000 mcg PO DAILY Supplement 05/27/21 01/31/23 mcg chewable tablet vitamin E 670 mg (1,000 unit) 1,000 unit PO DAILY Supplement 05/27/21 01/31/23 capsule tiotropium 2.5 mcg-olodaterol 2.5 2 puff inhalation DAILY Breathing 01/19/23 01/31/23 mcg/actuation mist for inhalation Problems (Stiolto Respimat) albuterol sulfate 90 mcg/actuation 2 inh inhalation Q4HP PRN 01/20/23 01/31/23 breath activated powder shortness of breath or wheezing inhaler,sensor levothyroxine 50 mcg tablet 50 mcg PO DAILY Thyroid 01/20/23 01/31/23 lisinopril 20 1 tab PO DAILY High Blood Pressure 01/20/23 01/31/23 mg-hydrochlorothiazide 12.5 mg tablet metformin 500 mg tablet 500 mg PO BIDWMEAL Diabetes 01/20/23 01/31/23 Previous Rx's Medication Instructions Recorded ipratropium 0.5 mg-albuterol 3 mg 3 ml inhalation QID PRN shortness 01/21/23 (2.5 mg base)/3 mL nebulization of breath or wheezing 90 days #270 soln mL metoprolol succinate 25 mg 25 mg PO BID High Blood Pressure 01/21/23 tablet,extended release 24 hr 30 days #60 tabs Allergies Allergy/AdvReac Type Severity Reaction Status Date / Time codeine Allergy Verified 11/24/22 15:06 ibandronate sodium Allergy Verified 11/24/22 15:06 [From Boniva] Penicillins Allergy Verified 11/24/22 15:06 Sulfa (Sulfonamide Allergy Verified 11/24/22 15:06 Antibiotics) [facility] Disclaimer: The information contained in this section may have been updated after the patient was seen, as this information can be updated by other users. Medical History (Reviewed
--- NOTE | 2023-01-31 22:10 | PC.NURSE ---
Rad in room with patient at this time.
[2023-01-31 22:22] LABS: Basophils % 0.2 % (0.1-2.0); Eosinophils # 0.3 K/mm3 (0.0-0.4); Eosinophils % 2.1 % (0.1-12.0); Hematocrit 40.9 % (37.0-47.0); Hemoglobin 13.2 g/dL (12.2-16.2); Lymphocytes # 1.1 K/mm3 (0.7-4.5); Lymphocytes % 7.3 % (10-50); Mean Corpuscular HGB Conc 32.3 g/dL (31.8-35.4); Mean Corpuscular Hemoglobin 29.8 pg (27.0-31.2); Mean Corpuscular Volume 92.1 fl (81-99); Mean Platelet Volume 7.9 fl (7.4-10.4); Monocytes # 0.9 K/mm3 (0.1-1.0); Monocytes % 6.5 % (1.7-9.3); Neutrophils # 12.2 K/mm3 (1.8-7.8); Neutrophils % 83.9 % (37.0-80.0); Platelet Count 307 K/mm3 (142-424); Red Blood Count 4.44 M/mm3 (4.20-5.40); Red Cell Distribution Width 13.8 % (11.5-17.5); White Blood Count 14.5 K/mm3 (4.8-10.8)
--- NOTE | 2023-01-31 22:25 | PC.NURSE ---
Respiratory in room at bedside at this time.
[2023-01-31 22:38] LABS: D-Dimer 0.83 ug/mL (0.0-0.5)
[2023-01-31 22:41] LABS: Chloride 86 mmol/L (98-107); Potassium 3.4 mmoL/L (3.5-5.1); Sodium 127 mmol/L (136-145)
[2023-01-31 22:42] LABS: NT Pro Brain Natriuretic Pep. 6980 pg/mL (0-450)
[2023-01-31 22:44] LABS: Alanine Aminotransferase 28 U/L (12-78); Albumin Level 3.6 g/dl (3.5-5.0); Albumin/Globulin Ratio 1.2 (1.1-1.8); Alkaline Phosphatase 66 U/L (38-126); Anion Gap 12.4 mEq/L (5-15); Aspartate Amino Transferase 29 U/L (14-36); Bilirubin,Total 0.5 mg/dl (0.2-1.3); Blood Urea Nitrogen 11 mg/dl (7-17); Calcium 9.2 mg/dl (8.4-10.2); Carbon Dioxide 32 mmol/L (22.0-30.0); Creatinine Clearance Estimated 32 mL/min (50-200); Estimated Glomerular Filt Rate 80 ml/min (>60); GFR (African American) 96 ML/MIN (>60); Glucose 160 mg/dl (74-100); Total Protein,Serum 6.6 g/dl (6.3-8.2); Troponin I 0.13 ng/ml (0.00-0.034)
--- NOTE | 2023-01-31 22:46 | PC.NURSE ---
Rounded on patient, no concerns at this time.
--- NOTE | 2023-01-31 23:00 | PC.NURSE ---
house called for Bed and DTA put in
--- NOTE | 2023-01-31 23:00 | PC.NURSE ---
ACUTE ADMISSION TO 205 DX OF RESP FAILURE, COPD WITH ACUTE EXACERBATION TO SERVICE OF THE HOSPITALIST.
--- NOTE | 2023-01-31 23:12 | PC.NURSE ---
report called to Neema Morocho
--- NOTE | 2023-01-31 23:33 | PC.NURSE ---
Pt arrived to the floor via stretcher @ 2434
[2023-02-01] VITALS (17 sets, daily range): BP systolic 122–188; BP diastolic 70–99; PULSE 70–106; RESP 17–24; TEMP 36.1–36.8; O2SAT 87–98; BMI 20.2; BMI 20.1
--- NOTE | 2023-02-01 00:56 | EXP.HP ---
History of Present Illness *Admission Date: 01/31/23 *Reason for visit:: COPD exacerbation *History of present illness: 82-year-old female presented to the ED with dyspnea. She was recently in the hospital for COPD exacerbation where she was started on nebs steroids antibiotics had significant improvement she was discharged about 2 weeks ago completed a 5-day course of Levaquin. SOA started yesterday at which point she began to have worsening hypoxia. She is on 3 L nasal cannula at home and her oxygen saturations were in the mid 70s on that at home. PMHX of COPD, HLD, HTN, DM, and hypothyroid. She denies any increased cough sputum production fevers chills or any other symptoms. No lower extremity swelling no history of heart failure. She was given IV steroids, magnesium, and antibiotics without improvement in her SOA and hypoxia. The ED physician called the hospitalist team for further medical management. She was admitted to the medical floor on 4L. She appears to be tachypneic on admission exam. Her ED workup revealed tachycardia with rate of 108, respirations of 24 and a leukocytosis of 14.5. She meets sepsis criteria. She received Doxycycline in the ED. Upon admission I ordered blood cultures, UA, Cefepime, and Azithromycin. She has a pulmonary consult placed. [facility] Disclaimer: The information contained in this section may have been updated after the patient was seen, as this information can be updated by other users. Medical History (Updated 02/01/23 @ 01:07 by OTTONIEL Mccloud) Acute and chronic respiratory failure Chronic respiratory failure with hypoxia and hypercapnia COPD (chronic obstructive pulmonary disease) Dyspnea on exertion Nocturnal hypoxemia Pulmonary emphysema Unspecified kyphosis, site unspecified Surgical History History of appendectomy History of cardiac cath History of hernia repair History of hysterectomy Hx of cholecystectomy Family History Other No significant family history Social History Smoking Status: Never smoker alcohol intake: never current occupational status: retired Travel in the last 8 weeks: None housing: house Review of Systems *Cardiovascular Cardiovascular: Reports dyspnea and Reports dyspnea on exertion *Respiratory Respiratory: Reports dyspnea and Reports dyspnea on exertion *Gastrointestinal Gastrointestinal: Reports system reviewed and no additional complaints, except as documented *Genitourinary Genitourinary: Reports system reviewed and no additional complaints, except as documented *Musculoskeletal Musculoskeletal: Reports system reviewed and no additional complaints, except as documented *Neurologic Neurologic: Reports system reviewed and no additional complaints, except as documented Meds Home Medications and Allergies Home Medications Medication Instructions Recorded Confirmed Type atorvastatin 40 mg tablet 40 mg PO HS Cholesterol 05/27/21 01/31/23 History cholecalciferol (vitamin D3) 25 25 mcg PO DAILY Supplement 05/27/21 01/31/23 History mcg (1,000 unit) tablet mecobalamin (vitamin B12) 1,000 1,000 mcg PO DAILY Supplement 05/27/21 01/31/23 History mcg chewable tablet vitamin E 670 mg (1,000 unit) 1,000 unit PO DAILY Supplement 05/27/21 01/31/23 History capsule tiotropium 2.5 mcg-olodaterol 2.5 2 puff inhalation DAILY Breathing 01/19/23 01/31/23 History mcg/actuation mist for inhalation Problems (Stiolto Respimat) albuterol sulfate 90 mcg/actuation 2 inh inhalation Q4HP PRN 01/20/23 01/31/23 History breath activated powder shortness of breath or wheezing inhaler,sensor levothyroxine 50 mcg tablet 50 mcg PO DAILY Thyroid 01/20/23 01/31/23 History lisinopril 20 1 tab PO DAILY High Blood Pressure 01/20/23 01/31/23 History mg-hydrochlorothiazide 12.5 mg tablet met
[2023-02-01 01:07] LABS: VBG Base Excess 1.7 mmol/L (-2.4-2.3); VBG HCO3 26.9 mmol/L (23-30); VBG Oxygen Saturation 59.2 % (50-70); VBG PCO2 46.9 mmol/L (35-51); VBG PH 7.38 mmol/L (7.31-7.41); VBG PO2 32.7 mmol/L (28-40); VBG Total CO2 28.3 mmol/L (23-27)
[2023-02-01 01:44] LABS: Microscopic, Urine URINE MICROSCOPIC (MICROSCOPIC)
[2023-02-01 02:04] LABS: Troponin I 0.12 ng/ml (0.00-0.034)
[2023-02-01 02:47] LABS: Appearance,Urine Clear (Clear); Bilirubin,Urine Negative (Negative); Blood, Urine Negative (Negative); Color,Urine Yellow (Yellow); Glucose,Urine (UA) Trace (Negative); Ketones,Urine Negative (Negative); Nitrate,Urine Negative (Negative); Protein,Urine Negative (Negative); Specific Gravity, Urine 1.015 (1.005-1.030)
[2023-02-01 02:48] LABS: Bacteria,Urine Trace /lpf; Leukocyte Esterase,Urine Negative (Negative); RBC,Urine Occasional #/hpf (0-3); Urobilinogen,Urine 0.2 EU/dl (0.2); WBC,Urine Occasional #/hpf (0-3)
--- NOTE | 2023-02-01 02:48 | EXP.SEPSISRE ---
[facility] Tissue Perfusion Eval Sepsis Re-Evaluation Performed: Yes Date Performed: 02/01/23 Time Performed: 02:48
[2023-02-01 06:01] LABS: POC Glucose,Bedside 204 (70-110)
[2023-02-01 07:10] LABS: Eosinophils % 0.2 % (0.1-12.0); Hematocrit 39.4 % (37.0-47.0); Hemoglobin 12.7 g/dL (12.2-16.2); Lymphocytes # 0.4 K/mm3 (0.7-4.5); Lymphocytes % 3.8 % (10-50); Mean Corpuscular HGB Conc 32.2 g/dL (31.8-35.4); Mean Corpuscular Hemoglobin 29.5 pg (27.0-31.2); Mean Corpuscular Volume 91.4 fl (81-99); Mean Platelet Volume 8.3 fl (7.4-10.4); Monocytes # 0.2 K/mm3 (0.1-1.0); Monocytes % 1.6 % (1.7-9.3); Neutrophils # 8.5 K/mm3 (1.8-7.8); Neutrophils % 94.3 % (37.0-80.0); Platelet Count 281 K/mm3 (142-424); Red Blood Count 4.31 M/mm3 (4.20-5.40); Red Cell Distribution Width 13.8 % (11.5-17.5); White Blood Count 9.1 K/mm3 (4.8-10.8)
[2023-02-01 07:20] LABS: MANUAL DIFFERENTIAL MANUAL DIFFERENTIAL (MANUAL DIFF)
[2023-02-01 07:22] LABS: Anion Gap 14.9 mEq/L (5-15); Blood Urea Nitrogen 10 mg/dl (7-17); Calcium 8.1 mg/dl (8.4-10.2); Carbon Dioxide 32 mmol/L (22.0-30.0); Chloride 85 mmol/L (98-107); Creatinine Clearance Estimated 33 mL/min (50-200); Estimated Glomerular Filt Rate 95 ml/min (>60); GFR (African American) 115 ML/MIN (>60); Glucose 208 mg/dl (74-100); Sodium 129 mmol/L (136-145)
[2023-02-01 07:24] LABS: Potassium 2.9 mmoL/L (3.5-5.1)
--- NOTE | 2023-02-01 07:30 | EXP.PN ---
Subjective *Date: 02/01/23 *Time: 12:00 Interval history: The patient feels much less short of breath compared to yesterday. She denies chest pain. Her cough is dry and unchanged from her baseline. Exam Data for Last 24 hours Vital signs and Labs for Last 24 Hours: Temp Pulse Resp BP Pulse Ox O2 Del Method O2 Flow Rate 97.0 F L 90 17 152/99 H 91 L Nasal Cannula 6 02/01/23 04:00 02/01/23 06:26 02/01/23 04:00 02/01/23 04:00 02/01/23 06:26 02/01/23 06:48 02/01/23 06:26 Laboratory Results - last 24 hr 01/31/23 21:11: WBC 14.5 H, RBC 4.44, Hgb 13.2, Hct 40.9, MCV 92.1, MCH 29.8, MCHC 32.3, RDW 13.8, Plt Count 307, MPV 7.9, Neut % (Auto) 83.9 H, Lymph % (Auto) 7.3 L, Long % (Auto) 6.5, Eos % (Auto) 2.1, Baso % (Auto) 0.2, Neut # (Auto) 12.2 H, Lymph # (Auto) 1.1, Long # (Auto) 0.9, Eos # (Auto) 0.3, Baso # (Auto) 0.0, D-Dimer 0.83 H, Sodium 127 L, Potassium 3.4 L, Chloride 86 L, Carbon Dioxide 32 H, Anion Gap 12.4, BUN 11, Creatinine 0.70, Estimated Creat Clear 32, Estimated GFR 80, Est GFR ( Amer) 96, Glucose 160 H, Calcium 9.2, Total Bilirubin 0.5, AST 29, ALT 28, Alkaline Phosphatase 66, Troponin I 0.13 H, NT-Pro-B Natriuret Pep 6980 H, Total Protein 6.6, Albumin 3.6, Globulin 3.0, Albumin/Globulin Ratio 1.2 02/01/23 00:33: VBG pH 7.38, VBG pCO2 46.9, VBG pO2 32.7, VBG HCO3 26.9, VBG Total CO2 28.3 H, VBG O2 Saturation 59.2, VBG Base Excess 1.7 02/01/23 01:19: Urine Color Yellow, Urine Appearance Clear, Urine pH 7.0, Ur Specific [place] 1.015, Urine Protein Negative, Urine Glucose (UA) Trace, Urine Ketones Negative, Urine Blood Negative, Urine Nitrate Negative, Urine Bilirubin Negative, Urine Urobilinogen 0.2, Ur Leukocyte Esterase Negative, Urine RBC Occasional, Urine WBC Occasional, Ur Squamous Epith Cells 3-5, Urine Bacteria Trace 02/01/23 01:30: Troponin I 0.12 H 02/01/23 05:53: POC Glucose 204 H 02/01/23 06:21: WBC 9.1 D, RBC 4.31, Hgb 12.7, Hct 39.4, MCV 91.4, MCH 29.5, MCHC 32.2, RDW 13.8, Plt Count 281, MPV 8.3, Neut % (Auto) 94.3 H, Lymph % (Auto) 3.8 L, Long % (Auto) 1.6 L, Eos % (Auto) 0.2, Baso % (Auto) 0.0 L, Neut # (Auto) 8.5 H, Lymph # (Auto) 0.4 L, Long # (Auto) 0.2, Eos # (Auto) 0.0, Baso # (Auto) 0.0, Sodium 129 L, Potassium 2.9 L*, Chloride 85 L, Carbon Dioxide 32 H, Anion Gap 14.9, BUN 10, Creatinine 0.60, Estimated Creat Clear 33, Estimated GFR 95, Est GFR ( Amer) 115, Glucose 208 H D, Calcium 8.1 L I & O for Last 24 hours: Intake & Output 01/29/23 01/30/23 01/31/23 02/01/23 23:59 23:59 23:59 23:59 Intake Total 300 / 300 Output Total 1600 / 1600 Balance 300 / -200 -1600 / -1600 Weight 48.988 kg 49.759 kg Constitutional Constitutional: no acute distress *Routine HEENT Exam Head: Present normocephalic Eye: Present EOMI and PERRL ENT: Present mucous membranes moist *Routine Neck Exam Neck: Present supple; Absent lymphadenopathy *Routine Respiratory Exam Respiratory: Present decreased breath sounds, crackles (mild scattered inspiratory crackles) and diminished air movement; Absent wheezes *Routine Cardiovascular Exam Cardiovascular: Present RRR *Routine Abdominal Exam Abdominal: Present soft and normoactive bowel sounds; Absent tenderness *Routine Extremities Exam Extremities: Absent cyanosis, clubbing or edema *Routine Skin Exam Skin: Present warm; Absent rash *Routine Neurological Exam Neurological: Present alert and oriented X3 Assessment and Plan *Assessment and plan (1) Acute exacerbation of chronic obstructive pulmonary disease: Status: Acute Category: Medical Code(s): J44.1 - Chronic obstructive pulmonary disease with (acute) exacerbation (2) Sepsis: Status: Acute Category: Medical Code(s): A41.9 - Sepsis, unspecified organism (3) Acute respiratory failure with hypoxemia: Status: Acute Category: Medical Code(s): J96.01 - Acute respiratory failure with hypoxia (4) Hypothyroid: Status: Acute
[2023-02-01 08:24] LABS: Lymphocytes % 3 % (10-50); Neutrophils % 97 % (42-76); Platelet Estimate Normal; RBC Morphology Normal; Total Cells Counted 100
[2023-02-01 08:32] LABS: Troponin I 0.11 ng/ml (0.00-0.034)
[2023-02-01 11:25] LABS: POC Glucose,Bedside 221 (70-110)
[2023-02-01 16:52] LABS: POC Glucose,Bedside 250 (70-110)
--- NOTE | 2023-02-01 18:57 | PC.NURSE ---
Patient alert and oriented x 4. Patient still requiring 6 liters NC instead of her 3 liters NC at home.
[2023-02-01 20:40] LABS: POC Glucose,Bedside 292 (70-110)
[2023-02-02] VITALS (13 sets, daily range): BP systolic 121–161; BP diastolic 64–88; PULSE 50–96; RESP 18–25; TEMP 36.5–36.8; O2SAT 92–99; BMI 20.9
[2023-02-02 06:16] LABS: POC Glucose,Bedside 167 (70-110)
[2023-02-02 07:54] LABS: Hematocrit 37.4 % (37.0-47.0); Hemoglobin 12.1 g/dL (12.2-16.2); Lymphocytes # 0.7 K/mm3 (0.7-4.5); Lymphocytes % 4.5 % (10-50); Mean Corpuscular HGB Conc 32.4 g/dL (31.8-35.4); Mean Corpuscular Hemoglobin 30.3 pg (27.0-31.2); Mean Corpuscular Volume 93.5 fl (81-99); Mean Platelet Volume 8.7 fl (7.4-10.4); Monocytes # 0.6 K/mm3 (0.1-1.0); Monocytes % 3.3 % (1.7-9.3); Neutrophils # 15.3 K/mm3 (1.8-7.8); Neutrophils % 92.2 % (37.0-80.0); Platelet Count 280 K/mm3 (142-424); Red Cell Distribution Width 13.9 % (11.5-17.5); White Blood Count 16.6 K/mm3 (4.8-10.8)
[2023-02-02 08:00] LABS: MANUAL DIFFERENTIAL MANUAL DIFFERENTIAL (MANUAL DIFF)
[2023-02-02 08:04] LABS: Anion Gap 12.4 mEq/L (5-15); Blood Urea Nitrogen 15 mg/dl (7-17); Calcium 8.2 mg/dl (8.4-10.2); Carbon Dioxide 29 mmol/L (22.0-30.0); Chloride 87 mmol/L (98-107); Creatinine Clearance Estimated 34 mL/min (50-200); Estimated Glomerular Filt Rate 95 ml/min (>60); GFR (African American) 115 ML/MIN (>60); Glucose 161 mg/dl (74-100); Potassium 4.4 mmoL/L (3.5-5.1); Sodium 124 mmol/L (136-145)
[2023-02-02 08:34] LABS: Thyroid Stimulating Hormone 0.53 uIU/mL (0.465-4.68)
--- NOTE | 2023-02-02 08:43 | EXP.PN ---
Subjective *Date: 02/02/23 *Time: 15:51 Interval history: The patient feels much better today. Her wheezing has resolved and she feels less short of breath. She denies pain. Exam Data for Last 24 hours Vital signs and Labs for Last 24 Hours: Temp Pulse Resp BP Pulse Ox O2 Del Method O2 Flow Rate 98.2 F 79 21 121/72 95 Nasal Cannula 5 02/02/23 07:55 02/02/23 07:55 02/02/23 07:55 02/02/23 07:55 02/02/23 07:55 02/02/23 07:55 02/02/23 07:55 Laboratory Results - last 24 hr 02/01/23 11:11: POC Glucose 221 H 02/01/23 16:43: POC Glucose 250 H 02/01/23 20:26: POC Glucose 292 H 02/02/23 06:02: POC Glucose 167 H 02/02/23 06:30: WBC 16.6 H D, RBC 4.00 L, Hgb 12.1 L, Hct 37.4, MCV 93.5, MCH 30.3, MCHC 32.4, RDW 13.9, Plt Count 280, MPV 8.7, Neut % (Auto) 92.2 H, Lymph % (Auto) 4.5 L, [place] % (Auto) 3.3, Eos % (Auto) 0.0 L, Baso % (Auto) 0.0 L, Neut # (Auto) 15.3 H, Lymph # (Auto) 0.7, [place] # (Auto) 0.6, Eos # (Auto) 0.0, Baso # (Auto) 0.0, Sodium 124 L, Potassium 4.4 D, Chloride 87 L, Carbon Dioxide 29, Anion Gap 12.4, BUN 15 D, Creatinine 0.60, Estimated Creat Clear 34, Estimated GFR 95, Est GFR ( Amer) 115, Glucose 161 H, Calcium 8.2 L I & O for Last 24 hours: Intake & Output 01/30/23 01/31/23 02/01/23 02/02/23 23:59 23:59 23:59 23:59 Intake Total 300 / 300 600 / 600 240 / 240 Output Total 3100 / 3100 0 / 0 Balance 300 / -200 -2500 / -2500 240 / 240 Weight 48.988 kg 49.7 kg 51.8 kg Constitutional Constitutional: no acute distress *Routine HEENT Exam Head: Present normocephalic Eye: Present EOMI and PERRL ENT: Present mucous membranes moist *Routine Neck Exam Neck: Present supple; Absent lymphadenopathy *Routine Respiratory Exam Respiratory: Present decreased breath sounds, CTA bilaterally and diminished air movement; Absent wheezes or crackles (mild scattered inspiratory crackles) *Routine Cardiovascular Exam Cardiovascular: Present RRR *Routine Abdominal Exam Abdominal: Present soft and normoactive bowel sounds; Absent tenderness *Routine Extremities Exam Extremities: Absent cyanosis, clubbing or edema *Routine Skin Exam Skin: Present warm; Absent rash *Routine Neurological Exam Neurological: Present alert and oriented X3 Assessment and Plan *Assessment and plan (1) Acute exacerbation of chronic obstructive pulmonary disease: Status: Acute Category: Medical Code(s): J44.1 - Chronic obstructive pulmonary disease with (acute) exacerbation (2) Sepsis: Status: Acute Category: Medical Code(s): A41.9 - Sepsis, unspecified organism (3) Acute respiratory failure with hypoxemia: Status: Acute Category: Medical Code(s): J96.01 - Acute respiratory failure with hypoxia (4) Hypothyroid: Status: Acute Qualifiers: Hypothyroidism type: acquired Qualified Code(s): E03.9 - Hypothyroidism, unspecified Category: Medical Code(s): E03.9 - Hypothyroidism, unspecified (5) HLD (hyperlipidemia): Status: Acute Qualifiers: Hyperlipidemia type: mixed hyperlipidemia Qualified Code(s): E78.2 - Mixed hyperlipidemia Category: Medical Code(s): E78.5 - Hyperlipidemia, unspecified (6) HTN (hypertension): Status: Acute Qualifiers: Hypertension type: primary hypertension Qualified Code(s): I10 - Essential (primary) hypertension Category: Medical Code(s): I10 - Essential (primary) hypertension (7) Diabetes mellitus type 2 in nonobese: Status: Acute Category: Medical Code(s): E11.9 - Type 2 diabetes mellitus without complications Plan #acute on chronic hypoxic respiratory failure #COPD exacerbation #hyponatremia #hypothyroidism #type 2 dm #htn #hld The patient is doing better. She is requiring 5L via NC and is saturating~94%%. Yesterday she was requiring 6L. At baseline she uses 3L NC continously. She ambulated on 3L today and desa
[2023-02-02 09:26] LABS: Lymphocytes % 5 % (10-50); Monocytes % 1 % (2-9); Neutrophils % 94 % (42-76); Platelet Estimate Normal; RBC Morphology Normal; Total Cells Counted 100
[2023-02-02 10:47] LABS: POC Glucose,Bedside 249 (70-110)
--- NOTE | 2023-02-02 11:19 | HMH.PTEV ---
Physical Therapy Evaluation Rehab PT IP Evaluation Start: 02/01/23 12:06 Freq: ONCE Status: Active Protocol: Document 02/02/23 11:10 LIVIA (Rec: 02/02/23 11:18 LIVIA [id number]) Subjective/History History History Patient is an 82 year old female admitted to [facility] 01/31/23 secondary to COPD exacerbation . Patient previously lived at home alone as was independent with all ADL's. Patient required RW for ambulation. Patient was able to achieve EOB independently, sit stand transfer CGA and ambulation CGA with supplemental O2/nasal cannula. Subjective Subjective I feel better than I did yesterday. New diagnosis of cancer in past 12 No months? Rehab PT IP Eval Objective Appearance Patient Behavior Appropriate,Cooperative Patient Orientation Person,Place,Birthday Difficulty following instructions none Speech Pattern Clear,Appropriate Ambulation Patient Able to Ambulate Yes Ambulation Observation IP General Gait Pattern Observation Wide Based Gait Ambulation Distance (feet) 12 Ambulation Assistive Device Rolling Walker Ambulation Ability Contact Guard/Hand Hold Balance Ability to Arise Able, uses arms to help Sitting Balance Steady, safe Standing Balance Steady, wide stance Dynamic Sitting Balance Ability Normal Dynamic Standing Balance Ability Good Transfers Bed Transfer Ability Independent Sit to Stand Bed Transfer Ability Contact Guard/Hand Hold ROM All Extremities PT ROM Status WFL MMT All Extremities PT MMT WFL Rehab PT IP prob,goals,plan Problems Date of Evaluation: 02/02/23 Discharge Plan PT Discharge Plan PT suggests that patient is a good candidate to DC home once found medically stable by MD. Suggest home health PT. G -code Required Yes Eval Complexity Eval Charge Codes 01354 - High Complexity G Codes PT Current Status Modifier CJ-At least 20% but less than 40% impaired, limited or restricted PT Goal Status Mobility PT Goal Status Modifer CJ-At least 20% but less than 40% impaired, limited or
--- NOTE | 2023-02-02 11:19 | CARE MANAGER ---
Care management consult for discharge planning. Patient evaluated by therapy and feel like patient can go home with home health. Current patient with [facility]. Will follow up with them with patient is ready for discharge. MISAEL Morgan
[2023-02-02 16:42] LABS: POC Glucose,Bedside 231 (70-110)
--- NOTE | 2023-02-02 17:13 | PC.NURSE ---
A&OX4. PT IS ON 4.5L NC AT THIS TIME, O2 SAT IN THE LOW 90S. PT UP AND AMBULATING IN ROOM AND HALLWAY, TOLERATES VERY WELL WITH WALKER. DOES DE-SAT AND GET SOA WITH AMBULATION. PT HAS BEEN GETTING UP TO THE BEDSIDE COMMODE, ADEQUATE OUTPUT. PT HAS HAD NO NEEDS OR C/O THUS FAR THIS SHIFT. DAUGHTER HAS BEEN TO VISIT. VSS.
[2023-02-02 20:45] LABS: POC Glucose,Bedside 225 (70-110)
[2023-02-03] VITALS (7 sets, daily range): BP systolic 107–154; BP diastolic 71–94; PULSE 72–93; RESP 17–19; TEMP 36.6–36.8; O2SAT 92–99; BMI 21.4
--- NOTE | 2023-02-03 05:04 | PC.NURSE ---
pt cont to be on 4.5l/nc, no new c/o voiced
[2023-02-03 06:06] LABS: POC Glucose,Bedside 140 (70-110)
[2023-02-03 06:32] LABS: Basophils % 0.1 % (0.1-2.0); Eosinophils # 0.1 K/mm3 (0.0-0.4); Eosinophils % 0.3 % (0.1-12.0); Hematocrit 35.5 % (37.0-47.0); Hemoglobin 11.7 g/dL (12.2-16.2); Lymphocytes # 1.4 K/mm3 (0.7-4.5); Lymphocytes % 8.4 % (10-50); Mean Corpuscular Hemoglobin 30.3 pg (27.0-31.2); Mean Corpuscular Volume 91.9 fl (81-99); Mean Platelet Volume 8.3 fl (7.4-10.4); Monocytes # 0.9 K/mm3 (0.1-1.0); Monocytes % 5.1 % (1.7-9.3); Neutrophils # 14.7 K/mm3 (1.8-7.8); Neutrophils % 86.1 % (37.0-80.0); Platelet Count 278 K/mm3 (142-424); Red Blood Count 3.86 M/mm3 (4.20-5.40); Red Cell Distribution Width 13.8 % (11.5-17.5); White Blood Count 17.1 K/mm3 (4.8-10.8)
[2023-02-03 06:34] LABS: MANUAL DIFFERENTIAL MANUAL DIFFERENTIAL (MANUAL DIFF)
[2023-02-03 06:45] LABS: Anion Gap 10.9 mEq/L (5-15); Blood Urea Nitrogen 20 mg/dl (7-17); Calcium 7.9 mg/dl (8.4-10.2); Carbon Dioxide 28 mmol/L (22.0-30.0); Chloride 89 mmol/L (98-107); Creatinine Clearance Estimated 35 mL/min (50-200); Estimated Glomerular Filt Rate 80 ml/min (>60); GFR (African American) 96 ML/MIN (>60); Glucose 123 mg/dl (74-100); Potassium 3.9 mmoL/L (3.5-5.1); Sodium 124 mmol/L (136-145)
[2023-02-03 06:59] LABS: Lymphocytes % 9 % (10-50); Monocytes % 3 % (2-9); Neutrophils % 88 % (42-76); Total Cells Counted 100
[2023-02-03 07:01] LABS: Platelet Estimate Normal; RBC Morphology Normal
[2023-02-03 08:00] LABS: Coronavirus 19, PCR Not Detected (NotDetected); Influenza A, PCR Not Detected (NotDetected); Influenza B, PCR Not Detected (NotDetected)
--- NOTE | 2023-02-03 09:15 | EXP.PULM.CON ---
History of Present Illness History of present illness: Ms. Del Real is a 82-year-old female history of COPD presented to hospital with worsening respiratory distress and was admitted to the hospital 02/02/2020 and pulmonary consult was placed. Patient admits clinic limited on the most recent hospital visit up until the day prior to presentation which noted a worsening respiratory distress that did not even improved with nebulization treatments and presented to the ER for further evaluation and management. [facility] Disclaimer: The information contained in this section may have been updated after the patient was seen, as this information can be updated by other users. Medical History (Updated 02/01/23 @ 01:07 by OTTONIEL Mccloud) Acute and chronic respiratory failure Chronic respiratory failure with hypoxia and hypercapnia COPD (chronic obstructive pulmonary disease) Dyspnea on exertion Nocturnal hypoxemia Pulmonary emphysema Unspecified kyphosis, site unspecified Surgical History History of appendectomy History of cardiac cath History of hernia repair History of hysterectomy Hx of cholecystectomy Family History Other No significant family history Social History Smoking Status: Never smoker alcohol intake: never current occupational status: retired Travel in the last 8 weeks: None housing: house Review of Systems Constitutional Constitutional: Reports anorexia, Reports body ache(s) and Reports fatigue Eyes Eyes: Denies eye discharge, Denies dry eyes, Denies irritation and Denies itchy eyes ENT Ears, Nose, Mouth, and Throat: Denies epistaxis, Denies facial pain, Denies lip swelling and Denies throat swelling *Cardiovascular Cardiovascular: Reports dyspnea, Reports dyspnea on exertion and Reports orthopnea *Respiratory Respiratory: Reports chest congestion, Reports cough, Reports dyspnea, Reports dyspnea on exertion, Denies excessive phlegm production and Reports wheezing *Gastrointestinal Gastrointestinal: Denies abdominal pain, Denies belching and Denies cramping *Musculoskeletal Musculoskeletal: Reports back pain, Reports myalgias and Reports other (No small joint swelling or Pain) *Neurologic Neurologic: Reports system reviewed and no additional complaints, except as documented Psychiatric Psychiatric: Denies homicidal ideation and Denies suicidal ideation Endocrine Endocrine: Reports fatigue and Denies heat intolerance Hematologic/Lymphatic Hematologic/Lymphatic: Denies easy bleeding and Denies lymphadenopathy Allergic/Immunologic Allergic/Immunologic: Denies itchy eyes, Denies lip swelling, Denies throat swelling and Reports wheezing Pulmonology Exam Inpatient Vital signs and Labs for Last 24 Hours: Temp Pulse Resp BP Pulse Ox O2 Del Method O2 Flow Rate 98.2 F 84 17 107/71 L 99 Nasal Cannula 4.5 02/03/23 07:36 02/03/23 07:36 02/03/23 07:36 02/03/23 07:36 02/03/23 07:36 02/03/23 07:36 02/03/23 07:36 Laboratory Results - last 24 hr 02/02/23 06:30: Total Counted 100, Neutrophils % (Manual) 94 H, Lymphocytes % (Manual) 5 L, Monocytes % (Manual) 1 L, Platelet Estimate Normal, RBC Morphology Normal 02/02/23 10:35: POC Glucose 249 H 02/02/23 16:19: POC Glucose 231 H 02/02/23 20:38: POC Glucose 225 H 02/03/23 05:53: POC Glucose 140 H 02/03/23 06:07: WBC 17.1 H, RBC 3.86 L, Hgb 11.7 L, Hct 35.5 L, MCV 91.9, MCH 30.3, MCHC 33.0, RDW 13.8, Plt Count 278, MPV 8.3, Neut % (Auto) 86.1 H, Lymph % (Auto) 8.4 L, [place] % (Auto) 5.1, Eos % (Auto) 0.3, Baso % (Auto) 0.1, Neut # (Auto) 14.7 H, Lymph # (Auto) 1.4, [place] # (Auto) 0.9, Eos # (Auto) 0.1, Baso # (Auto) 0.0, Total Counted 100, Neutrophils % (Manual) 88 H, Lymphocytes % (Manual) 9 L, Monocytes % (Manual) 3, Platelet Estimate Normal, RBC Morphology Normal, Sodium 124 L, Potassium 3.9, Chloride 89 L, Ca
--- NOTE | 2023-02-03 09:19 | XR_ITS ---
FINAL REPORT CLINICAL HISTORY: Hypoxia COMPARISON: 01/31/2023 FINDINGS: SINGLE-VIEW CHEST There is cardiomegaly. The mediastinum is normal. There is persistent bibasilar atelectasis or pneumonia. There is no pneumothorax. IMPRESSION: Persistent bibasilar atelectasis versus pneumonia. Reviewed, Interpreted and Dictated by Ritchie Mccartney III, MD Transcribed by Chinyere Hui Authenticated and [facility]
--- NOTE | 2023-02-03 09:43 | HMH.OTEV ---
OT Inpatient Evaluation Rehab OT IP Evaluation Start: 02/02/23 08:47 Freq: ONCE Status: Active Protocol: [facility]03/23 09[facility] (Rec: 02/03/23 09:43 [facility] [id number]) Rehab OT IP Assessment Subjective History Pt oriented x 3 on arrival. Pt agreeable to engage in therapy session. Pt admitted on 01/31/23 due to COPD exacerbation. She was recently in the hospital for COPD exacerbation where she was started on nebs steroids antibiotics had significant improvement she was discharged about 2 weeks ago completed a 5-day course of Levaquin. SOA started yesterday at which point she began to have worsening hypoxia. She is on 3 L nasal cannula at home and her oxygen saturations were in the mid 70s on that at home. PMHX of COPD, HLD, HTN, DM, and hypothyroid. Normally she lives at home alone. Pt claims she is independent with all ALds and most IADLs. Her daughter does complete grocery shopping for her. Her daughter checks on her often. She uses a rolling walker during functional transfers. She no longer drives. Subjective It's just my breathing that gets to me. Objective Patient Orientation Person,Place,Birthday Upper Extremity Gross ROM WFL Bed Mobility bed mobility-scooting,bed mobility - supine/sit,bed mobility - rolling Assist Level Supervision/Stand by Transfer Training Sit/Stand Transfer Assist Level Supervision/Stand by Chair Transfer Ability Supervision/Stand by Chair Transfer Technique Sit to/from Ambulatory Chair Transfer Assistive Devices Rolling Walker Lower Body Dressing Ability Standby Assistance Rehab OT IP prob,goals,plan Problems Date of Evaluation: 02/03/23 Rehab Potential Rehab Potential Innapropriate for Skilled Therapy Discharge Plan OT Discharge Plan At this
--- NOTE | 2023-02-03 10:14 | SW/DCPLANNER ---
The plan for this patient is to discharge home today. Patient is currently established / [facility]: patient information/order to resume home health services will be faxed.
[2023-02-03 11:44] LABS: POC Glucose,Bedside 125 (70-110)
--- NOTE | 2023-02-03 12:10 | EXP.DC.SUM ---
General Admission date:: 01/31/23 Discharge date: 02/03/23 HPI HPI HPI: 82-year-old female presented to the ED with dyspnea. She was recently in the hospital for COPD exacerbation where she was started on nebs steroids antibiotics had significant improvement she was discharged about 2 weeks ago completed a 5-day course of Levaquin. SOA started yesterday at which point she began to have worsening hypoxia. She is on 3 L nasal cannula at home and her oxygen saturations were in the mid 70s on that at home. PMHX of COPD, HLD, HTN, DM, and hypothyroid. She denies any increased cough sputum production fevers chills or any other symptoms. No lower extremity swelling no history of heart failure. She was given IV steroids, magnesium, and antibiotics without improvement in her SOA and hypoxia. The ED physician called the hospitalist team for further medical management. She was admitted to the medical floor on 4L. She appears to be tachypneic on admission exam. Her ED workup revealed tachycardia with rate of 108, respirations of 24 and a leukocytosis of 14.5. She meets sepsis criteria. She received Doxycycline in the ED. Upon admission I ordered blood cultures, UA, Cefepime, and Azithromycin. She has a pulmonary consult placed. Hospital Course Hospital Course Hospital Course: 82 year old female presented to the ED for c/o SOB since last night. PMHX COPD, HTN, HLD, hypothyroid and DM. Uses 3 L NC at home. Presented to the ED hypoxic requiring 6L. She was given several breathing treatments and IV steroids without improvement. She denies any recent sick contact. Her ED work up was unremarkable and her Chest xray did not demonstrate pneumonia. Improved oxygen requirement, back to base line O2 needs. PT and OT evaluated during admission. Patient at baseline level of function. Stable for discharge home. Plan and problems addressed as follows: COPD EXACERBATION Acute on Chronic hypoxemic respiratory failure - Patient was initiated on 6 L nasal cannula oxygen on arrival. Able to wean to 3 L by day of discharge which is her baseline oxygen requirement. Initiated on doxycycline on admission. Has been receiving DuoNebs every 6 hours along with Pulmicort every 12 hours. Received prednisone 40 mg daily since admission. Exam gradually improved with clear breath sounds on day of discharge with no wheezing. Not in any respiratory distress. Saturations in the low 90s on 3 L nasal cannula. Repeat chest x-ray on day of discharge did not show any evidence of airspace disease. Did show increased vascular congestion however. Treated with 1 dose of Lasix 20 mg IV. Pulmonology was consulted during admission. Recommend continuing doxycycline to complete a total of 5 days of antibiotics. Discontinue prednisone on discharge. Stable for discharge home. Plan to follow-up with pulmonology within the next week. HTN HLD HYPOTHYROID -Continue home metoprolol succinate 25 mg BID. Continue Lipitor 40 mg at night. TSH 1.62 at last admission. Continue home levothyroxine 50 mcg/day. Continue lisinopril. Discontinue HCTZ due to hyponatremia. Recommend reevaluating need for Lasix or HCTZ at follow-up. Stable for discharge home. Evaluated for placement, independently mobile. Will refer to home health for PT, OT, halfway. Exam Data for Last 24 hours Vital signs and Labs for Last 24 Hours: Temp Pulse Resp BP Pulse Ox O2 Del Method O2 Flow Rate 97.8 F 72 17 141/71 H 92 L Nasal Cannula 3.5 02/03/23 11:23 02/03/23 11:23 02/03/23 11:23 02/03/23 11:23 02/03/23 11:23 02/03/23 11:23 02/03/23 11:23 Laboratory Results - last 24 hr 02/02/23 16:19: POC Glucose 231 H 02/02/23 20:38: POC Glucose 225 H 02/03/23 05:53: POC Glucose 140 H 02/03/23 06:07: WBC 17.1 H, RBC 3.86 L, Hgb 11.7 L, Hct 35.5 L, MCV 91.9, MCH 30.3, MCHC 33.0, RDW 13.8, Plt Count 278, MPV 8.3, Neut % (Auto) 86.1 H, Lymph % (Auto) 8.4 L, [place] % (Auto) 5.1, Eos % (Auto) 0.3, Baso % (Auto)
--- NOTE | 2023-02-04 15:50 | CARE MANAGER ---
Called and spoke with patient regarding recent discharge. Patient stated that she is feeling ok, has started new medication prescribed at discharge and has stopped taking the lisinopril that was discontinued. Patient had no concerns or questions at time of call.
== END 2023-02-03 15:44 | disposition home or self-care (01) ==
LOC: ER 23:01 → 2ND 23:26
PROVIDERS: Internal Medicine Adolescent Medicine; Nurse Practitioner Critical Care Medicine; Admitting Provider Internal Medicine; Emergency Provider Student in an Organized Health Care Education/Training Program; PCP General Practice; Visit Provider Internal Medicine
DX: E03.9 Hypothyroidism, unspecified; E78.2 Mixed hyperlipidemia; I10 Essential (primary) hypertension; E11.9 Type 2 diabetes mellitus without complications; J96.21 Acute and chronic respiratory failure with hypoxia; Z79.899 Other long term (current) drug therapy; Z79.84 Long term (current) use of oral hypoglycemic drugs; A41.9 Sepsis, unspecified organism; J44.1 Chronic obstructive pulmonary disease with (acute) exacerbation; R06.9 Unspecified abnormalities of breathing
CPT/HCPCS: 36415; 71045; 80048; 80053; 81001; 82803; 82962; 83880; 84443; 84484; 85007; 85025; 85378; 87040; 87636; 93005; 94640; 94761; 97163; 97165; 99291; G0378; J0456; J0692; J3475

== ENCOUNTER 2023-02-08 02:04 | Observation (INO) | payer MEDICARE, SELFPAY ==
[2023-02-08] VITALS (13 sets, daily range): BP systolic 149–220; BP diastolic 72–137; PULSE 71–101; RESP 18–30; TEMP 36.4–36.7; O2SAT 84–94; BMI 19.7; BMI 20.4
--- NOTE | 2023-02-08 02:08 | XR_ITS ---
PROCEDURE INFORMATION: Exam: XR Chest Exam date and time: 02/08/2023 2:09 AM Age: 82 years old Clinical indication: Shortness of breath; Additional info: Hypoxia copd TECHNIQUE: Imaging protocol: Radiologic exam of the chest. Views: 1 view. COMPARISON: CR XR CHEST PORTABLE 02/03/2023 9:40 AM FINDINGS: Lungs: COPD. Chronic interstitial changes. Overall stable exam. Pleural spaces: Unremarkable. No pleural effusion. No pneumothorax. Heart/Mediastinum: Mild cardiomegaly. Bones/joints: Unremarkable. IMPRESSION: COPD. Mild cardiomegaly. Chronic interstitial changes. Overall stable exam.
[2023-02-08 02:24] LABS: VBG Base Excess 0.7 mmol/L (-2.4-2.3); VBG HCO3 26.2 mmol/L (23-30); VBG Oxygen Saturation 45.1 % (50-70); VBG PCO2 47.9 mmol/L (35-51); VBG PH 7.36 mmol/L (7.31-7.41); VBG PO2 27.2 mmol/L (28-40); VBG Total CO2 27.7 mmol/L (23-27)
[2023-02-08 02:31] LABS: Basophils % 0.2 % (0.1-2.0); Eosinophils # 0.7 K/mm3 (0.0-0.4); Eosinophils % 7.3 % (0.1-12.0); Hematocrit 42.8 % (37.0-47.0); Hemoglobin 13.1 g/dL (12.2-16.2); Lymphocytes # 1.9 K/mm3 (0.7-4.5); Mean Corpuscular HGB Conc 30.7 g/dL (31.8-35.4); Mean Corpuscular Hemoglobin 28.8 pg (27.0-31.2); Mean Platelet Volume 7.9 fl (7.4-10.4); Monocytes # 0.7 K/mm3 (0.1-1.0); Monocytes % 7.6 % (1.7-9.3); Neutrophils # 6.1 K/mm3 (1.8-7.8); Neutrophils % 64.9 % (37.0-80.0); Platelet Count 394 K/mm3 (142-424); Red Blood Count 4.55 M/mm3 (4.20-5.40); Red Cell Distribution Width 14.1 % (11.5-17.5); White Blood Count 9.3 K/mm3 (4.8-10.8)
[2023-02-08 02:33] LABS: Chloride 93 mmol/L (98-107); Potassium 4.7 mmoL/L (3.5-5.1); Sodium 132 mmol/L (136-145)
[2023-02-08 02:35] LABS: Alanine Aminotransferase 30 U/L (12-78); Aspartate Amino Transferase 29 U/L (14-36); Blood Urea Nitrogen 15 mg/dl (7-17); Creatinine Clearance Estimated 32 mL/min (50-200); Estimated Glomerular Filt Rate 68 ml/min (>60); GFR (African American) 83 ML/MIN (>60)
[2023-02-08 02:36] LABS: Albumin Level 3.6 g/dl (3.5-5.0); Albumin/Globulin Ratio 1.1 (1.1-1.8); Alkaline Phosphatase 65 U/L (38-126); Anion Gap 14.7 mEq/L (5-15); Bilirubin,Total 0.6 mg/dl (0.2-1.3); Calcium 9.7 mg/dl (8.4-10.2); Carbon Dioxide 29 mmol/L (22.0-30.0); Globulin 3.2 g/dL (1.3-3.2); Glucose 204 mg/dl (74-100); Total Protein,Serum 6.8 g/dl (6.3-8.2)
--- NOTE | 2023-02-08 02:36 | HMH.EDGENADL ---
Discharge Plan Disposition Patient Disposition: Admitted Condition: Serious Clinical Impressions Clinical Impression: HTN (hypertension), Acute exacerbation of chronic obstructive pulmonary disease Acute and chronic respiratory failure Qualifiers: Respiratory failure complication: hypoxia Qualified Code(s): J96.21 - Acute and chronic respiratory failure with hypoxia Discharge ED Provider: Isauro Gilmore General Adult HPI General Chief complaint: Shortness of Breath/Dyspnea Stated complaint: SOA Time Seen by Provider: 02/08/23 02:07 Mode of Arrival: Wheelchair Source of Information: Patient Limitations: No Limitations Description of Symptoms (Recalled from ER Triage Doc. by RN): Pt arrived via POV, assisted to wheelchair with c/o SOA. Pt was d/c from hospital yesterday. Pt states she can't breathe and needs oxygen wears 3l/nc but was not on O2 upon arrival. Pt 84% at this time, Dr Gilmore at beside, BiPap ordered with silvia mejia History of Present Illness HPI narrative: 82-year-old female history of COPD and hypertension presents with significant dyspnea. She is unable to communicate secondary to shortness of breath. Per report she began feeling worse a few hours prior to arrival. He has been admitted and discharged multiple times recently with COPD exacerbation. Related Data Home Medications Medication Instructions Recorded Confirmed atorvastatin 40 mg tablet 40 mg PO HS Cholesterol 05/27/21 01/31/23 cholecalciferol (vitamin D3) 25 25 mcg PO DAILY Supplement 05/27/21 01/31/23 mcg (1,000 unit) tablet mecobalamin (vitamin B12) 1,000 1,000 mcg PO DAILY Supplement 05/27/21 01/31/23 mcg chewable tablet vitamin E 670 mg (1,000 unit) 1,000 unit PO DAILY Supplement 05/27/21 01/31/23 capsule tiotropium 2.5 mcg-olodaterol 2.5 2 puff inhalation DAILY Breathing 01/19/23 01/31/23 mcg/actuation mist for inhalation Problems (Stiolto Respimat) albuterol sulfate 90 mcg/actuation 2 inh inhalation Q4HP PRN 01/20/23 01/31/23 breath activated powder shortness of breath or wheezing inhaler,sensor levothyroxine 50 mcg tablet 50 mcg PO DAILY Thyroid 01/20/23 01/31/23 metformin 500 mg tablet 500 mg PO BIDWMEAL Diabetes 01/20/23 01/31/23 Previous Rx's Medication Instructions Recorded ipratropium 0.5 mg-albuterol 3 mg 3 ml inhalation QID PRN shortness 01/21/23 (2.5 mg base)/3 mL nebulization of breath or wheezing 90 days #270 soln mL metoprolol succinate 25 mg 25 mg PO BID High Blood Pressure 01/21/23 tablet,extended release 24 hr 30 days #60 tabs doxycycline hyclate 100 mg tablet 100 mg PO BID 2 days #4 tabs 02/03/23 lisinopril 20 mg tablet 20 mg PO DAILY 30 days #30 tabs 02/03/23 Allergies Allergy/AdvReac Type Severity Reaction Status Date / Time codeine Allergy Verified 11/24/22 15:06 ibandronate sodium Allergy Verified 11/24/22 15:06 [From Boniva] Penicillins Allergy Verified 11/24/22 15:06 Sulfa (Sulfonamide Allergy Verified 11/24/22 15:06 Antibiotics) [facility] Disclaimer: The information contained in this section may have been updated after the patient was seen, as this information can be updated by other users. Medical History (Updated 02/08/23 @ 04:04 by Isauro Gilmore MD) Acute and chronic respiratory failure Chronic respiratory failure with hypoxia and hypercapnia COPD (chronic obstructive pulmonary disease) Dyspnea on exertion Nocturnal hypoxemia Pulmonary emphysema Unspecified kyphosis, site unspecified Surgical History History of appendectomy History of cardiac cath History of hernia repair History of hysterectomy Hx of cholecystectomy Family History Other No significant family history Social History Smoking Status: Unknown if ever smoked alcohol intake: never current occupational status: retired
--- NOTE | 2023-02-08 03:29 | PC.NURSE ---
spoke with warehouse team member to request a bed for admission.
--- NOTE | 2023-02-08 04:22 | EXP.HP ---
History of Present Illness *Admission Date: 02/08/23 *Reason for visit:: SOB *History of present illness: 82-year-old female with PMHX of COPD, HLD, HTN, DM, and hypothyroidism presented to the ED with dyspnea. She is been recently in the hospital for COPD exacerbation more than one. she was discharged last week on Doxycicline PO, and follow up appt with pulmonology, previously she was started on nebs steroids antibiotics had significant improvement she was discharged about 2 weeks ago completed a 5-day course of Levaquin. SOA started yesterday at which point she began to have worsening hypoxia. She is on 3 L nasal cannula at home and her oxygen saturations were in the mid 70s on that at home. . She denies any increased cough sputum production fevers chills or any other symptoms. No lower extremity swelling no history of heart failure. Readmitted for treatment. [facility] Disclaimer: The information contained in this section may have been updated after the patient was seen, as this information can be updated by other users. Medical History (Updated 02/08/23 @ 06:44 by Fabrice Celeste APRN) Acute and chronic respiratory failure Chronic respiratory failure with hypoxia and hypercapnia COPD (chronic obstructive pulmonary disease) Dyspnea on exertion Nocturnal hypoxemia Pulmonary emphysema Unspecified kyphosis, site unspecified Surgical History History of appendectomy History of cardiac cath History of hernia repair History of hysterectomy Hx of cholecystectomy Family History Other No significant family history Social History (Updated 02/08/23 @ 06:07 by Ewelina Deng RN) Smoking Status: Unknown if ever smoked alcohol intake: never current occupational status: retired Travel in the last 8 weeks: None housing: house Review of Systems Review of Systems Review of systems:: pertinent systems reviewed and negative unless documented below Meds Home Medications and Allergies Home Medications Medication Instructions Recorded Confirmed Type atorvastatin 40 mg tablet 40 mg PO HS Cholesterol 05/27/21 02/08/23 History cholecalciferol (vitamin D3) 25 25 mcg PO DAILY Supplement 05/27/21 02/08/23 History mcg (1,000 unit) tablet mecobalamin (vitamin B12) 1,000 1,000 mcg PO DAILY Supplement 05/27/21 02/08/23 History mcg chewable tablet vitamin E 670 mg (1,000 unit) 1,000 unit PO DAILY Supplement 05/27/21 02/08/23 History capsule tiotropium 2.5 mcg-olodaterol 2.5 2 puff inhalation DAILY Breathing 01/19/23 02/08/23 History mcg/actuation mist for inhalation Problems (Stiolto Respimat) albuterol sulfate 90 mcg/actuation 2 inh inhalation Q4HP PRN 01/20/23 02/08/23 History breath activated powder shortness of breath or wheezing inhaler,sensor levothyroxine 50 mcg tablet 50 mcg PO DAILY Thyroid 01/20/23 02/08/23 History metformin 500 mg tablet 500 mg PO BIDWMEAL Diabetes 01/20/23 02/08/23 History ipratropium 0.5 mg-albuterol 3 mg 3 ml inhalation QID PRN shortness 01/21/23 02/08/23 Rx (2.5 mg base)/3 mL nebulization of breath or wheezing 90 days #270 soln mL metoprolol succinate 25 mg 25 mg PO BID High Blood Pressure 01/21/23 02/08/23 Rx tablet,extended release 24 hr 30 days #60 tabs lisinopril 20 mg tablet 20 mg PO DAILY High Blood Pressure 02/08/23 02/08/23 History New Prescriptions to Start Prescriptions: Allergies Allergy/AdvReac Type Severity Reaction Status Date / Time codeine Allergy Verified 11/24/22 15:06 ibandronate sodium Allergy Verified 11/24/22 15:06 [From Raquel] Penicillins Allergy Verified 11/24/22 15:06 Sulfa (Sulfonamide Allergy Verified 11/24/22 15:06 Antibiotics) Exam Data for Last 24 hours Vital signs and Labs for Last 24 Hours: Temp Pulse Resp BP Pulse Ox O2 Del Method O2 Flow Rate 97.7 F 98 H 30 H 218/137 H 84 L Nasal Can
[2023-02-08 06:19] LABS: POC Glucose,Bedside 184 (70-110)
[2023-02-08 06:51] LABS: Eosinophils % 0.3 % (0.1-12.0); Hemoglobin 12.8 g/dL (12.2-16.2); Lymphocytes # 0.4 K/mm3 (0.7-4.5); Lymphocytes % 3.6 % (10-50); Mean Corpuscular HGB Conc 31.3 g/dL (31.8-35.4); Mean Corpuscular Hemoglobin 28.9 pg (27.0-31.2); Mean Corpuscular Volume 92.3 fl (81-99); Mean Platelet Volume 8.4 fl (7.4-10.4); Monocytes # 0.2 K/mm3 (0.1-1.0); Monocytes % 1.5 % (1.7-9.3); Neutrophils # 10.9 K/mm3 (1.8-7.8); Neutrophils % 94.6 % (37.0-80.0); Platelet Count 334 K/mm3 (142-424); Red Blood Count 4.44 M/mm3 (4.20-5.40); Red Cell Distribution Width 14.1 % (11.5-17.5); White Blood Count 11.5 K/mm3 (4.8-10.8)
[2023-02-08 06:57] LABS: MANUAL DIFFERENTIAL MANUAL DIFFERENTIAL (MANUAL DIFF)
[2023-02-08 06:58] LABS: Alanine Aminotransferase 31 U/L (12-78); Albumin Level 3.8 g/dl (3.5-5.0); Albumin/Globulin Ratio 1.2 (1.1-1.8); Alkaline Phosphatase 71 U/L (38-126); Anion Gap 14.8 mEq/L (5-15); Aspartate Amino Transferase 28 U/L (14-36); Bilirubin,Total 0.8 mg/dl (0.2-1.3); Blood Urea Nitrogen 13 mg/dl (7-17); Calcium 8.9 mg/dl (8.4-10.2); Carbon Dioxide 29 mmol/L (22.0-30.0); Chloride 91 mmol/L (98-107); Creatinine Clearance Estimated 33 mL/min (50-200); Estimated Glomerular Filt Rate 80 ml/min (>60); GFR (African American) 96 ML/MIN (>60); Globulin 3.3 g/dL (1.3-3.2); Glucose 176 mg/dl (74-100); Potassium 3.8 mmoL/L (3.5-5.1); Sodium 131 mmol/L (136-145); Total Protein,Serum 7.1 g/dl (6.3-8.2)
[2023-02-08 07:54] LABS: Lymphocytes % 1 % (10-50); Neutrophils % 99 % (42-76); Platelet Estimate Normal; RBC Morphology Normal; Total Cells Counted 100
--- NOTE | 2023-02-08 09:49 | HMH.PHAINT1 ---
Pharmacy Intervention Comments: MEDICATION RECONCILIATION COMPLETED ON PATIENT USING EXTERNAL FILL HISTORY FROM PHARMACY AND DISCHARGE SUMMARY FROM PREVIOUS ADMISSION. -EDMUND COELLO, ARACELID
[2023-02-08 17:37] LABS: POC Glucose,Bedside 199 (70-110)
[2023-02-08 17:37] LABS: POC Glucose,Bedside 200 (70-110)
[2023-02-08 20:41] LABS: POC Glucose,Bedside 154 (70-110)
[2023-02-09] VITALS (10 sets, daily range): BP systolic 136–159; BP diastolic 59–97; PULSE 45–89; RESP 16–22; TEMP 36.4–36.8; O2SAT 90–100; BMI 21.0
[2023-02-09 05:21] LABS: POC Glucose,Bedside 144 (70-110)
--- NOTE | 2023-02-09 06:25 | PC.NURSE ---
02 AT 4LNC CONTINUOUS USE. SAYS SOA WITH EXERTION. LUNGS DIMINISHED, NO COUGH NOTED. DEFORMITY OF BACK CAUSES CHRONIC NECK/BACK PAIN. MEDICATED WITH TYLENOL 650 MG PO AT 2300 WHICH CONTROLLED PAIN. RECEIVED BATH THIS AM.
[2023-02-09 06:47] LABS: Basophils % 0.3 % (0.1-2.0); Eosinophils # 0.2 K/mm3 (0.0-0.4); Lymphocytes # 1.2 K/mm3 (0.7-4.5); Monocytes # 0.7 K/mm3 (0.1-1.0); Platelet Count 321 K/mm3 (142-424)
[2023-02-09 06:58] LABS: Alanine Aminotransferase 23 U/L (12-78); Albumin Level 3.1 g/dl (3.5-5.0); Albumin/Globulin Ratio 1.1 (1.1-1.8); Alkaline Phosphatase 51 U/L (38-126); Aspartate Amino Transferase 23 U/L (14-36); Bilirubin,Total 0.6 mg/dl (0.2-1.3); Blood Urea Nitrogen 15 mg/dl (7-17); Calcium 8.1 mg/dl (8.4-10.2); Carbon Dioxide 33 mmol/L (22.0-30.0); Chloride 90 mmol/L (98-107); Creatinine Clearance Estimated 34 mL/min (50-200); Estimated Glomerular Filt Rate 68 ml/min (>60); GFR (African American) 83 ML/MIN (>60); Globulin 2.7 g/dL (1.3-3.2); Glucose 131 mg/dl (74-100); Magnesium 1.9 mg/dl (1.6-2.3); Sodium 128 mmol/L (136-145); Total Protein,Serum 5.8 g/dl (6.3-8.2)
[2023-02-09 08:07] LABS: Hematocrit 36.1 % (37.0-47.0); Lymphocytes % 19.2 % (10-50); Mean Corpuscular HGB Conc 31.1 g/dL (31.8-35.4); Mean Corpuscular Hemoglobin 29.3 pg (27.0-31.2); Mean Corpuscular Volume 94.1 fl (81-99); Mean Platelet Volume 8.1 fl (7.4-10.4); Monocytes % 10.4 % (1.7-9.3); Neutrophils # 4.3 K/mm3 (1.8-7.8); Neutrophils % 67.1 % (37.0-80.0); Red Blood Count 3.83 M/mm3 (4.20-5.40); Red Cell Distribution Width 14.4 % (11.5-17.5); White Blood Count 6.4 K/mm3 (4.8-10.8)
[2023-02-09 08:12] LABS: Hemoglobin 11.2 g/dL (12.2-16.2)
--- NOTE | 2023-02-09 09:24 | EXP.PULM.CON ---
History of Present Illness History of present illness: Mr. Rodas is a 82-year-old female history of COPD recently discharged from the hospital less than a week ago presented to the hospital again with sudden onset worsening respiratory status that woke her up from night for which she used breathing treatment that did not improve her symptoms eventually EMS was called and patient was brought to the ER. [facility] Disclaimer: The information contained in this section may have been updated after the patient was seen, as this information can be updated by other users. Medical History (Updated 02/08/23 @ 06:44 by Fabrice Celeste APRN) Acute and chronic respiratory failure Chronic respiratory failure with hypoxia and hypercapnia COPD (chronic obstructive pulmonary disease) Dyspnea on exertion Nocturnal hypoxemia Pulmonary emphysema Unspecified kyphosis, site unspecified Surgical History History of appendectomy History of cardiac cath History of hernia repair History of hysterectomy Hx of cholecystectomy Family History Other No significant family history Social History (Updated 02/08/23 @ 06:07 by Ewelina Deng RN) Smoking Status: Unknown if ever smoked alcohol intake: never current occupational status: retired Travel in the last 8 weeks: None housing: house Review of Systems Constitutional Constitutional: Reports anorexia, Reports body ache(s) and Reports fatigue Eyes Eyes: Denies eye discharge, Denies dry eyes, Denies irritation and Denies itchy eyes ENT Ears, Nose, Mouth, and Throat: Denies epistaxis, Denies facial pain, Denies lip swelling and Denies throat swelling *Cardiovascular Cardiovascular: Reports dyspnea, Reports dyspnea on exertion and Reports orthopnea *Respiratory Respiratory: Reports chest congestion, Reports cough, Reports dyspnea, Reports dyspnea on exertion, Denies excessive phlegm production and Reports wheezing *Gastrointestinal Gastrointestinal: Denies abdominal pain, Denies belching and Denies cramping *Musculoskeletal Musculoskeletal: Reports back pain, Reports myalgias and Reports other (No small joint swelling or Pain) *Neurologic Neurologic: Reports system reviewed and no additional complaints, except as documented Psychiatric Psychiatric: Denies auditory hallucinations, Denies homicidal ideation and Denies suicidal ideation Endocrine Endocrine: Reports fatigue and Denies heat intolerance Hematologic/Lymphatic Hematologic/Lymphatic: Denies easy bleeding and Denies lymphadenopathy Allergic/Immunologic Allergic/Immunologic: Denies itchy eyes, Denies lip swelling, Denies throat swelling and Reports wheezing Pulmonology Exam Inpatient Vital signs and Labs for Last 24 Hours: Temp Pulse Resp BP Pulse Ox O2 Del Method O2 Flow Rate 98.1 F 77 22 141/91 H 95 Nasal Cannula 4 02/09/23 08:00 02/09/23 08:00 02/09/23 08:00 02/09/23 08:00 02/09/23 08:00 02/09/23 08:00 02/09/23 08:00 FiO2 36 02/08/23 18:43 Laboratory Results - last 24 hr 02/08/23 10:40: POC Glucose 199 H 02/08/23 17:30: POC Glucose 200 H 02/08/23 19:50: POC Glucose 154 H 02/09/23 05:12: POC Glucose 144 H 02/09/23 05:35: WBC 6.4 D, RBC 3.83 L, Hgb 11.2 L D, Hct 36.1 L, MCV 94.1, MCH 29.3, MCHC 31.1 L, RDW 14.4, Plt Count 321, MPV 8.1, Neut % (Auto) 67.1, Lymph % (Auto) 19.2, [place] % (Auto) 10.4 H, Eos % (Auto) 3.0, Baso % (Auto) 0.3, Neut # (Auto) 4.3, Lymph # (Auto) 1.2, [place] # (Auto) 0.7, Eos # (Auto) 0.2, Baso # (Auto) 0.0, Sodium 128 L, Potassium 4.0, Chloride 90 L, Carbon Dioxide 33 H, Anion Gap 9.0, BUN 15, Creatinine 0.80, Estimated Creat Clear 34, Estimated GFR 68, Est GFR ( Amer) 83, Glucose 131 H D, Calcium 8.1 L, Magnesium 1.9, Total Bilirubin 0.6, AST 23, ALT 23 D, Alkaline Phosphatase 51, Total Protein 5.8 L, Albumin 3.1 L D, Globulin 2.7, Albumin/Globulin Ratio 1.1 I & O for Labs for Last
--- NOTE | 2023-02-09 09:30 | SW/DCPLANNER ---
Addendum entered by [facility] 02/10/23 15:13: Per Zahira Moscoso patient has been approved SNF level of care. I will relay information to patient, MD and nursing staff. Addendum entered by [facility] 02/10/23 09:56: Per Zahira precert is still pending at this time. Addendum entered by [facility] 02/10/23 07:35: Zahira Moscoso stated that precert was started yesterday afternoon. I will continue to update MD and patient/family. Addendum entered by [facility] 02/09/23 15:44: Zahira Moscoso will be onsite to evaluate this patient. Addendum entered by [facility] 02/09/23 13:59: Zahira Moscoso is still reviewing patient information and checking insurance. Addendum entered by [facility] 02/09/23 11:44: Patient is agreeable to placement and prefers information to be faxed to [facility]. Patient stated that if [facility] can not accept patient she would then prefer [facility] or [facility]. Patient information will be faxed to Zahira Moscoso this AM. Original Note: I spoke w/ patient and her daughter regarding plans once medically stable for discharge. Patient currently resides at home and is established w/ [facility]. I explained to patient that PT/OT will evaluate her this AM and once this is completed I will further discuss discharge plans. I explained different discharge options to patient and her daughter: home w/ home health vs SNF. Discharge date is unknown at this time. I will follow up w/ patient once PT/OT evaluations are completed.
--- NOTE | 2023-02-09 10:19 | HMH.PTEV ---
Physical Therapy Evaluation Rehab PT IP Evaluation Start: 02/09/23 07:49 Freq: ONCE Status: Active Protocol: Document 02/09/23 10:12 PHOBEENA (Rec: 02/09/23 10:19 PHORNE [id number]) Subjective/History History History 82 yowf adm to [facility] with COPD exac. She has hx of COPD, HTN, HLD, DM, hypothyroid. She reports she lives alone with 3 steps to enter the home ( I don't go up them by myself because I'm too scared. ), and she is generallty independent using a RW for all mobility. She reports her daughter lives nearby and checks on her sometimes. Subjective Subjective Pt reports no c/o pain this am , but does reports feeling tired and moderately SOA after mobility assessment. New diagnosis of cancer in past 12 No months? Rehab PT IP Eval Objective Appearance Patient Behavior Appropriate Patient Orientation Person,Place,Time Difficulty following instructions none Speech Pattern Clear Ambulation Patient Able to Ambulate Yes Ambulation Observation IP General Gait Pattern Observation Shuffling Step Ambulation Distance (feet) 30 Ambulation Assistive Device Rolling Walker Ambulation Ability Supervision/Stand by Balance Ability to Arise Able, uses arms to help Sitting Balance Steady, safe Standing Balance Steady, wide stance Dynamic Sitting Balance Ability Good Dynamic Standing Balance Ability Good Transfers Bed Transfer Ability Supervision/Stand by Chair Transfer Ability Supervision/Stand by Sit to Stand Bed Transfer Ability Supervision/Stand by Sit to Stand Chair Transfer Ability Supervision/Stand by ROM All Extremities PT ROM Status WFL MMT All Extremities PT MMT WFL Rehab PT IP prob,goals,plan Problems Date of Evaluation: 02/09/23 PT IP Problems Bed Mobility,Transfers,Gait, Self care Rehab Potential Rehab Potential Good Plan PT Intervention Plan Bed Mobility,Transfers,Gait, Self care,Therapeutic Exercise PT Plan Frequency Daily Duration LOS Discharge Goals Bed Transfer Ability Independent Sit to Stand Chair Transfer Ability Independent Ambulation Assistive Device
--- NOTE | 2023-02-09 10:23 | HMH.OTEV ---
OT Inpatient Evaluation Rehab OT IP Evaluation Start: 02/09/23 07:49 Freq: ONCE Status: Active Protocol: Document 02/09/23 10:13 NEREYDA (Rec: 02/09/23 10:23 ENREYDA [id number]) Rehab OT IP Assessment Subjective History 82-year-old female with PMHX of COPD, HLD, HTN, DM, and hypothyroidism presented to the ED with dyspnea. She is been recently in the hospital for COPD exacerbation more than one. she was discharged last week on Doxycicline PO, and follow up appt with pulmonology, previously she was started on nebs steroids antibiotics had significant improvement she was discharged about 2 weeks ago completed a 5-day course of Levaquin. SOA started yesterday at which point she began to have worsening hypoxia. She is on 3 L nasal cannula at home and her oxygen saturations were in the mid 70s on that at home. She denies any increased cough sputum production fevers chills or any other symptoms. No lower extremity swelling no history of heart failure. Readmitted for treatment. Patient lives alone with in a trailer. Independent with all ADLs and fx'l mobiltiy with usage of RW. Uses 02 at home. Subjective I can walk. Analysis Patient's fx'l mobility and ADLs while supine ->sit @ EOB requiring SUP. Patient completed sit->stand with usage of RW SUP. No LOB noted. Patient on 4L of 02 and fatigue during fx'l mobility and requested to rest. Objective Patient Orientation Person,Place,Name,Age Upper Extremity Gross ROM WNL Bed Mobility bed mobility - supine/sit Assist Level Supervision/Stand by Transfer Training Sit/Stand Transfer Assist Level Supervision/Stand by Chair Transfer Ability
[2023-02-09 11:36] LABS: POC Glucose,Bedside 147 (70-110)
--- NOTE | 2023-02-09 16:01 | EXP.ACUTE.PN ---
Subjective *Date: 02/09/23 *Time: 16:01 Interval history: Ms. Del Real is stable on 4 L oxygen this morning. Tolerating p.o. intake. PT and OT evaluating on interview. Daughter at bedside, concerned about patient going back home by herself. Strong concern that episodes happen in the middle of the night, patient is anxious during episodes. Oxygen sometimes comes disconnected from her concentrator. She also lays flat at home, would benefit from laying on an incline like she does in the hospital. Patient is afebrile, alert and oriented x3 Medical Exam Vital signs and Labs for Last 24 Hours: Vital Signs Temp Pulse Pulse Resp BP Pulse Ox O2 Del Method 02/09/23 15:42 97.7 F 76 20 156/79 H 90 L Nasal Cannula 02/09/23 13:25 78 02/09/23 13:25 77 02/09/23 11:47 97.7 F 73 22 144/82 H 94 L Nasal Cannula 02/09/23 08:00 98.1 F 77 22 141/91 H 95 Nasal Cannula 02/09/23 06:35 Nasal Cannula 02/09/23 05:15 50 L 02/09/23 05:15 45 L 02/09/23 05:15 100 Nasal Cannula 02/09/23 04:00 98.1 F 64 18 136/74 96 Nasal Cannula 02/09/23 04:49 Nasal Cannula 02/09/23 03:00 Nasal Cannula 02/09/23 00:00 97.7 F 60 18 139/86 96 Nasal Cannula 02/09/23 00:49 Nasal Cannula 02/08/23 23:20 82 02/08/23 23:20 81 02/08/23 23:00 Nasal Cannula 02/08/23 21:00 Nasal Cannula 02/08/23 20:00 97.9 F 72 18 158/81 H 93 L Nasal Cannula 02/08/23 20:00 94 L Nasal Cannula 02/08/23 18:28 Nasal Cannula 02/08/23 18:43 Nasal Cannula 02/08/23 18:42 82 02/08/23 18:42 82 02/08/23 17:00 Nasal Cannula O2 Flow Rate FiO2 02/09/23 15:42 3 02/09/23 13:25 02/09/23 13:25 02/09/23 11:47 4 02/09/23 08:00 4 02/09/23 06:35 4 02/09/23 05:15 02/09/23 05:15 02/09/23 05:15 4 02/09/23 04:00 4 02/09/23 04:49 4 02/09/23 03:00 4 02/09/23 00:00 4 02/09/23 00:49 4 02/08/23 23:20 02/08/23 23:20 02/08/23 23:00 4 02/08/23 21:00 4 02/08/23 20:00 4 02/08/23 20:00 4 02/08/23 18:28 4 02/08/23 18:43 4 36 02/08/23 18:42 02/08/23 18:42 02/08/23 17:00 4 Intake and Output 02/09/23 02/09/23 02/09/23 07:59 15:59 23:59 Intake Total 240 / 780 540 / 780 Output Total 500 / 750 250 / 750 Balance -260 / 30 290 / 30 Intake: Intake, Oral Amount 240 / 780 540 / 780 Output: Output, Urine Amount 500 / 750 250 / 750 Other: Weight 51.88 kg Patient Weight 02/09/23 23:59 Weight 51.88 kg Laboratory Results - last 24 hr 02/08/23 10:40: POC Glucose 199 H 02/08/23 17:30: POC Glucose 200 H 02/08/23 19:50: POC Glucose 154 H 02/09/23 05:12: POC Glucose 144 H 02/09/23 05:35: WBC 6.4 D, RBC 3.83 L, Hgb 11.2 L D, Hct 36.1 L, MCV 94.1, MCH 29.3, MCHC 31.1 L, RDW 14.4, Plt Count 321, MPV 8.1, Neut % (Auto) 67.1, Lymph % (Auto) 19.2, [place] % (Auto) 10.4 H, Eos % (Auto) 3.0, Baso % (Auto) 0.3, Neut # (Auto) 4.3, Lymph # (Auto) 1.2, [place] # (Auto) 0.7, Eos # (Auto) 0.2, Baso # (Auto) 0.0, Sodium 128 L, Potassium 4.0, Chloride 90 L, Carbon Dioxide 33 H, Anion Gap 9.0, BUN 15, Creatinine 0.80, Estimated Creat Clear 34, Estimated GFR 68, Est GFR ( Amer) 83, Glucose 131 H D, Calcium 8.1 L, Magnesium 1.9, Total Bilirubin 0.6, AST 23, ALT 23 D, Alkaline Phosphatase 51, Total Protein 5.8 L, Albumin 3.1 L D, Globulin 2.7, Albumin/Globulin Ratio 1.1 02/09/23 11:22: POC Glucose 147 H I & O for Labs for Last 24 Hours: Intake & Output 02/06/23 02/07/23 02/08/23 02/09/23 23:59 23:59 23:59 23:59 Intake Total 1170 / 1170 780 / 780 Output Total 500 / 500 750 / 750 Balance 670 / 670 30 / 30 Weight 50.394 kg 51.88 kg Constitutional: Present mild distress, thin and chronically ill appearing Head: Present atraumatic and normocephalic ENT: Present normal exam Respiratory: Present prolonged expiratory phase and diminished air movement; Absent rh
[2023-02-09 16:46] LABS: POC Glucose,Bedside 225 (70-110)
--- NOTE | 2023-02-09 18:06 | PC.NURSE ---
Patient complained of shortness of air. Respiratory notified and incentive spirometer given to patient.
[2023-02-09 20:46] LABS: POC Glucose,Bedside 259 (70-110)
[2023-02-10 04:00] VITALS: BP 140/59; PULSE 66; RESP 16; TEMP 36.6; O2SAT 96; BMI 21.0
[2023-02-10 06:12] VITALS: PULSE 62; PULSE 68; O2SAT 92
[2023-02-10 06:31] LABS: POC Glucose,Bedside 119 (70-110)
[2023-02-10 07:04] LABS: Alanine Aminotransferase 25 U/L (12-78); Albumin Level 3.3 g/dl (3.5-5.0); Albumin/Globulin Ratio 1.1 (1.1-1.8); Alkaline Phosphatase 54 U/L (38-126); Anion Gap 10.4 mEq/L (5-15); Aspartate Amino Transferase 28 U/L (14-36); Bilirubin,Total 0.3 mg/dl (0.2-1.3); Blood Urea Nitrogen 15 mg/dl (7-17); Calcium 8.3 mg/dl (8.4-10.2); Carbon Dioxide 30 mmol/L (22.0-30.0); Chloride 95 mmol/L (98-107); Creatinine Clearance Estimated 34 mL/min (50-200); Estimated Glomerular Filt Rate 68 ml/min (>60); GFR (African American) 83 ML/MIN (>60); Globulin 2.9 g/dL (1.3-3.2); Glucose 110 mg/dl (74-100); Potassium 4.4 mmoL/L (3.5-5.1); Sodium 131 mmol/L (136-145); Total Protein,Serum 6.2 g/dl (6.3-8.2)
[2023-02-10 08:00] VITALS: BP 173/92; PULSE 62; RESP 20; TEMP 36.9; O2SAT 90
--- NOTE | 2023-02-10 09:32 | EXP.PULM.PN ---
Subjective *Date: 02/10/23 *Time: 10:14 Interval history: No acute respiratory vents overnight. Patient admits continued improvement in her symptoms. Pulmonology Exam Inpatient Vital signs and Labs for Last 24 Hours: Temp Pulse Resp BP Pulse Ox O2 Del Method O2 Flow Rate 98.4 F 62 20 173/92 H 90 L Nasal Cannula 3 02/10/23 08:00 02/10/23 08:00 02/10/23 08:00 02/10/23 08:00 02/10/23 08:00 02/10/23 08:00 02/10/23 08:00 FiO2 36 02/08/23 18:43 Laboratory Results - last 24 hr 02/09/23 11:22: POC Glucose 147 H 02/09/23 16:39: POC Glucose 225 H 02/09/23 20:24: POC Glucose 259 H 02/10/23 05:51: POC Glucose 119 H 02/10/23 06:20: Sodium 131 L, Potassium 4.4, Chloride 95 L, Carbon Dioxide 30, Anion Gap 10.4, BUN 15, Creatinine 0.80, Estimated Creat Clear 34, Estimated GFR 68, Est GFR ( Amer) 83, Glucose 110 H, Calcium 8.3 L, Total Bilirubin 0.3, AST 28, ALT 25, Alkaline Phosphatase 54, Total Protein 6.2 L, Albumin 3.3 L, Globulin 2.9, Albumin/Globulin Ratio 1.1 I & O for Labs for Last 24 Hours: Intake & Output 02/07/23 02/08/23 02/09/23 02/10/23 23:59 23:59 23:59 23:59 Intake Total 1170 / 1170 780 / 780 240 / 240 Output Total 500 / 500 1450 / 1450 Balance 670 / 670 -670 / -670 240 / 240 Weight 111 lb 1.6 oz 114 lb 6 oz 114 lb 6.013 oz Microbiology Reports for the Last 24 Hours: Microbiology 01/31/23 22:20 Blood Blood Culture - Preliminary NO GROWTH AFTER 48 HOURS 01/31/23 22:20 Blood Blood Culture - Preliminary NO GROWTH AFTER 48 HOURS Constitutional: Present moderate distress Head: Present normocephalic and atraumatic ENT: Present normal exam, normal oropharynx and mucous membranes moist Neck: Present normal inspection and full ROM Respiratory: Present normal respiratory effort and able to speak in complete sentences; Absent prolonged expiratory phase, respiratory distress, wheezes, crackles or diminished air movement Cardiac: Present S1/S2, Tachycardia and radial pulses present GI: Present soft and distention; Absent tenderness or guarding Rectal (female): Present deferred (female): Present deferred Skin: Present intact; Absent cyanosis or jaundice Neuro: Present alert, awake and oriented x 3 Extremities: Present normal inspection; Absent clubbing or cyanosis Psychiatric: Present normal affect and cooperative Assessment and Plan *Assessment and plan (1) Acute exacerbation of chronic obstructive pulmonary disease: Status: Acute Category: Medical Code(s): J44.1 - Chronic obstructive pulmonary disease with (acute) exacerbation Plan Mr. Rodas is a 82-year-old female history of COPD recently discharged from the hospital less than a week ago presented to the hospital again with sudden onset worsening respiratory status that woke her up from night for which she used breathing treatment that did not improve her symptoms eventually EMS was called and patient was brought to the ER. As per the ER note upon presentation patient found to be hypotensive and hypoxic with saturation 70%. Absent breath sounds with prolonged expiratory phase bilaterally. BiPAP intubation was also considered in the ED however patient improved with nebulization therapies. On examination the patient breathing appears at baseline. Bilateral clear breath sounds with no wheezing. Saturating 90% on 2 to 3 L nasal oxygen supplementation which is her baseline. Afebrile. No evidence of leukocytosis with chest x-ray clear with no new pulmonary infiltrates more most recent discharge. Interval update: No acute respiratory was overnight. Stable oxygen requirements. Patient admits continued improvement in her symptoms Plan: -Follow D-dimer and procalcitonin Prednisone 40 mg daily x5 days DuoNebs every 8 scheduled along with Pulmicort every 12 scheduled #Thank you for involving pulmonary in this patient care. We will continue to follow.
[2023-02-10 11:25] LABS: D-Dimer 0.96 ug/mL (0.0-0.5)
[2023-02-10 12:00] VITALS: BP 158/67; PULSE 70; RESP 20; TEMP 36.7; O2SAT 92
[2023-02-10 12:27] LABS: POC Glucose,Bedside 162 (70-110)
[2023-02-10 13:21] VITALS: PULSE 77; PULSE 78
--- NOTE | 2023-02-10 15:16 | EXP.DC.SUM ---
General Admission date:: 02/08/23 Discharge date: 02/10/23 HPI HPI HPI: 82-year-old female with PMHX of COPD, HLD, HTN, DM, and hypothyroidism presented to the ED with dyspnea. She is been recently in the hospital for COPD exacerbation more than one. she was discharged last week on Doxycicline PO, and follow up appt with pulmonology, previously she was started on nebs steroids antibiotics had significant improvement she was discharged about 2 weeks ago completed a 5-day course of Levaquin. SOA started yesterday at which point she began to have worsening hypoxia. She is on 3 L nasal cannula at home and her oxygen saturations were in the mid 70s on that at home. . She denies any increased cough sputum production fevers chills or any other symptoms. No lower extremity swelling no history of heart failure. Readmitted for treatment. Hospital Course Hospital Course Hospital Course: 82-year-old female history of COPD on 3 L nasal cannula at baseline presents with severe dyspnea. History was obtained via conversation with patient, family, EMR review. On arrival, patient is hypertensive, hypoxic with sats in the 70s, ill-appearing, absent breath sounds and prolonged expiratory phase bilaterally, patient moving almost no air. She has done better since admission. Back to baseline 4 L nasal cannula oxygen. Hemodynamically stable. Pulmonology evaluated. Concur with concern for anxiety versus COPD exacerbations. Has remained stable for over 24 hours on 4 L nasal cannula oxygen. Tolerating Seroquel for anxiety. PT and OT recommend placement. Patient to be transferred to [facility] for rehab. Appreciate their assistance in care. Problems addressed as follows during admission: -Acute on chronic hypoxic respiratory failure secundary to acute exacerbation of the Chronic COPD: Presented with acute hypoxemic event. Resolved quickly with nebulizers and admission. Has improved and is back to baseline oxygen requirement. Differential diagnosis includes COPD exacerbation, anxiety attack, medication noncompliance, issue with oxygen delivery at home. Given patient's comorbidities and recurrent admissions, concern for ability to care for herself at home. Pulmonology consulted. Recommend continuing steroids for 5 days. Recommend initiating medication for anxiety. Has done well after initiating Seroquel. Continue scheduled DuoNebs 3-4 times a day. No further antibiotics after discharge - Chronic hyponatremia:likely secondary to poor intake. Supplement with meals HTN: Continue lisinopril 20 mg daily, continue metoprolol 50 mg twice daily Hypothyroidism: Continue levothyroxine 50 mcg daily Hyperlipidemia: Continue Lipitor 40 mg nightly Anxiety: Initiated Seroquel 25 mg nightly. slept well. continue at discharge. Consider titration for effect. Exam Data for Last 24 hours Vital signs and Labs for Last 24 Hours: Temp Pulse Resp BP Pulse Ox O2 Del Method O2 Flow Rate 98.0 F 78 20 158/67 H 92 L Nasal Cannula 3 02/10/23 12:00 02/10/23 13:21 02/10/23 12:00 02/10/23 12:00 02/10/23 12:00 02/10/23 13:00 02/10/23 13:00 FiO2 36 02/08/23 18:43 Laboratory Results - last 24 hr 02/09/23 16:39: POC Glucose 225 H 02/09/23 20:24: POC Glucose 259 H 02/10/23 05:51: POC Glucose 119 H 02/10/23 06:20: Sodium 131 L, Potassium 4.4, Chloride 95 L, Carbon Dioxide 30, Anion Gap 10.4, BUN 15, Creatinine 0.80, Estimated Creat Clear 34, Estimated GFR 68, Est GFR ( Amer) 83, Glucose 110 H, Calcium 8.3 L, Total Bilirubin 0.3, AST 28, ALT 25, Alkaline Phosphatase 54, Total Protein 6.2 L, Albumin 3.3 L, Globulin 2.9, Albumin/Globulin Ratio 1.1 02/10/23 10:45: D-Dimer 0.96 H 02/10/23 12:14: POC Glucose 162 H I & O for Last 24 hours: Intake & Output 02/07/23 02/08/23 02/09/23 02/10/23 23:59 23:59 23:59 23:59 Intake Total 1170 / 1170 780 / 780 480 / 480 Output Total 500 / 500 1450 / 1450 Balance 670 / 670 -670 / -670 480 / 480 Weight
[2023-02-10 16:57] LABS: POC Glucose,Bedside 253 (70-110)
[2023-02-12 14:03] LABS: Procalcitonin 0.02 ng/mL (0.0-2.0)
== END 2023-02-10 17:15 ==
LOC: ER 02:18 → 2ND 03:48
PROVIDERS: Internal Medicine Pulmonary Disease; Nurse Practitioner Family; Admitting Provider Internal Medicine Adolescent Medicine; Emergency Provider Emergency Medicine; PCP General Practice; Visit Provider Internal Medicine Adolescent Medicine
DX: J96.21 Acute and chronic respiratory failure with hypoxia (principal); J43.9 Emphysema, unspecified; E87.1 Hypo-osmolality and hyponatremia; E11.9 Type 2 diabetes mellitus without complications; I10 Essential (primary) hypertension; E78.2 Mixed hyperlipidemia; E03.9 Hypothyroidism, unspecified; Z78.9 Other specified health status; R54 Age-related physical debility; F41.9 Anxiety disorder, unspecified
CPT/HCPCS: 36415; 71045; 80053; 82803; 82962; 83735; 84145; 85007; 85025; 85378; 94640; 94760; 94761; 97116; 97163; 97165; 97530; 97535; 99291; G0378; J0456; J3475

== ENCOUNTER 2023-02-16 10:15 | Inpatient (IN) | payer MEDICARE, SELFPAY ==
[2023-02-16] VITALS (22 sets, daily range): BP systolic 112–180; BP diastolic 62–107; PULSE 81–104; RESP 16–34; TEMP 36.7–36.9; O2SAT 70–99; BMI 23.3; BMI 21.7
--- NOTE | 2023-02-16 10:20 | ECG_ITS ---
APPROVED REPORT Exam: Resting ECG HR:93 bpm ECG Measurements Heart Rate 93 AXES QRSd 106 QRS 16 QT 328 T 132 QTc 379 Conclusion ATRIAL FIBRILLATION VOLTAGE CRITERIA FOR LVH [MEETS CRITERIA IN ONE OF: R(aVL), S(V1), R(V5), R(V5/V6)+S(V1)] NONSPECIFIC ST & T-WAVE ABNORMALITY ABNORMAL ECG UNCONFIRMED REPORT Electronically signed by : Lito Pimentel MD 02/16/2023 20:16:34
--- NOTE | 2023-02-16 10:20 | PC.NURSE ---
Repeat EKG requested by BRAD ROSS
--- NOTE | 2023-02-16 10:25 | XR_ITS ---
FINAL REPORT TECHNIQUE: Single view chest CLINICAL HISTORY: SOA COMPARISON: 02/08/2023 FINDINGS: A single view of the chest was obtained. The heart is mildly enlarged. Patchy airspace opacity is seen in the perihilar region. There is bibasilar atelectasis. There is no pneumothorax. Osseous structures are unremarkable. IMPRESSION: Right upper lobe airspace opacity which may be related to localized infiltrate. Reviewed, Interpreted and Dictated by You Goldsmith MD Transcribed by Leighann Ocasio Authenticated and [facility]
--- NOTE | 2023-02-16 10:33 | HMH.EDGENADL ---
Discharge Plan Disposition Patient Disposition: Admitted As Inpatient Clinical Impressions Clinical Impression: Acute respiratory distress, COPD exacerbation, SIRS (systemic inflammatory response syndrome) Discharge ED Provider: Juanito Gilmore General Adult HPI General Chief complaint: Shortness of Breath/Dyspnea Stated complaint: SOA Time Seen by Provider: 02/16/23 10:15 History of Present Illness HPI narrative: Patient is a 82-year-old female with past medical history of COPD on 3 to 4 L nasal cannula at baseline who presents to the emergency department for evaluation of shortness of breath. Onset was acute, over the last 24 hours. Due to persistent symptoms she presents here for continued evaluation. Upon EMS arrival oxygen saturation was in the 70s on baseline oxygen requirement she was escalated to nonrebreather. Patient was discharged to [facility] for rehabilitation recently after inpatient COPD exacerbation stay. Related Data Home Medications Medication Instructions Recorded Confirmed atorvastatin 40 mg tablet 40 mg PO HS Cholesterol 05/27/21 02/16/23 cholecalciferol (vitamin D3) 25 25 mcg PO DAILY Supplement 05/27/21 02/16/23 mcg (1,000 unit) tablet mecobalamin (vitamin B12) 1,000 1,000 mcg PO DAILY Supplement 05/27/21 02/16/23 mcg chewable tablet vitamin E 670 mg (1,000 unit) 1,000 unit PO DAILY Supplement 05/27/21 02/16/23 capsule tiotropium 2.5 mcg-olodaterol 2.5 2 puff inhalation DAILY Breathing 01/19/23 02/16/23 mcg/actuation mist for inhalation Problems (Stiolto Respimat) levothyroxine 50 mcg tablet 50 mcg PO DAILY Thyroid 01/20/23 02/16/23 lisinopril 20 mg tablet 20 mg PO DAILY High Blood Pressure 02/08/23 02/16/23 acetaminophen 500 mg tablet 500 mg PO Q4HP PRN pain or fever 02/16/23 02/16/23 amino acids-protein hydrolysate 17 1 ea PO DAILY wound prevenative 02/16/23 02/16/23 gram-100 kcal/30 mL oral liquid (Pro-Stat AWC) quetiapine 25 mg tablet 25 mg PO HS sleep 02/16/23 02/16/23 Previous Rx's Medication Instructions Recorded ipratropium 0.5 mg-albuterol 3 mg 3 ml inhalation QID PRN shortness 01/21/23 (2.5 mg base)/3 mL nebulization of breath or wheezing 90 days #270 soln mL metoprolol succinate 25 mg 25 mg PO BID High Blood Pressure 01/21/23 tablet,extended release 24 hr 30 days #60 tabs Allergies Allergy/AdvReac Type Severity Reaction Status Date / Time codeine Allergy Verified 11/24/22 15:06 ibandronate sodium Allergy Verified 11/24/22 15:06 [From Boniva] Penicillins Allergy Verified 11/24/22 15:06 Sulfa (Sulfonamide Allergy Verified 11/24/22 15:06 Antibiotics) [facility] Disclaimer: The information contained in this section may have been updated after the patient was seen, as this information can be updated by other users. Medical History Acute and chronic respiratory failure Chronic respiratory failure with hypoxia and hypercapnia COPD (chronic obstructive pulmonary disease) Dyspnea on exertion Nocturnal hypoxemia Pulmonary emphysema Unspecified kyphosis, site unspecified Surgical History History of appendectomy History of cardiac cath History of hernia repair History of hysterectomy Hx of cholecystectomy Family History No significant family history Social History Smoking Status: Unknown if ever smoked alcohol intake: never current occupational status: retired Travel in the last 8 weeks: None housing: house ROS Obtained: Yes Systems reviewed as appropriate & no additional complaints except as documented Physical Exam General General appearance: alert and in distress Head Head exam: atraumatic and normocephalic Eye Eye exam: Present PERRL and EOMI ENT ENT exam: Present mucous membranes moist Neck Neck exam:
--- NOTE | 2023-02-16 10:37 | PC.NURSE ---
Pt's daughter and POA, Peyton Corbin, called for an update. Pt's granddaughter at bedside.
[2023-02-16 10:48] LABS: Lactic Acid 1.3 mmol/L (0.7-2.1)
[2023-02-16 11:00] LABS: Coronavirus 19, PCR Not Detected (NotDetected); Influenza A, PCR Not Detected (NotDetected); Influenza B, PCR Not Detected (NotDetected)
[2023-02-16 11:02] LABS: Basophils % 0.1 % (0.1-2.0); Eosinophils # 0.1 K/mm3 (0.0-0.4); Hematocrit 39.7 % (37.0-47.0); Hemoglobin 12.4 g/dL (12.2-16.2); Lymphocytes # 0.7 K/mm3 (0.7-4.5); Lymphocytes % 6.8 % (10-50); Mean Corpuscular HGB Conc 31.3 g/dL (31.8-35.4); Mean Corpuscular Hemoglobin 29.3 pg (27.0-31.2); Mean Corpuscular Volume 93.7 fl (81-99); Mean Platelet Volume 8.1 fl (7.4-10.4); Monocytes # 0.5 K/mm3 (0.1-1.0); Monocytes % 4.5 % (1.7-9.3); Neutrophils # 9.4 K/mm3 (1.8-7.8); Neutrophils % 87.7 % (37.0-80.0); Platelet Count 334 K/mm3 (142-424); Red Blood Count 4.24 M/mm3 (4.20-5.40); Red Cell Distribution Width 14.2 % (11.5-17.5); White Blood Count 10.7 K/mm3 (4.8-10.8)
[2023-02-16 11:02] LABS: VBG Base Excess -0.6 mmol/L (-2.4-2.3); VBG HCO3 24.4 mmol/L (23-30); VBG PCO2 41.1 mmol/L (35-51); VBG PH 7.39 mmol/L (7.31-7.41); VBG PO2 59.3 mmol/L (28-40); VBG Total CO2 25.6 mmol/L (23-27)
[2023-02-16 11:10] LABS: Chloride 96 mmol/L (98-107); Potassium 4.5 mmoL/L (3.5-5.1); Sodium 129 mmol/L (136-145)
[2023-02-16 11:12] LABS: MANUAL DIFFERENTIAL MANUAL DIFFERENTIAL (MANUAL DIFF)
[2023-02-16 11:13] LABS: Alanine Aminotransferase 37 U/L (12-78); Albumin Level 3.5 g/dl (3.5-5.0); Albumin/Globulin Ratio 1.2 (1.1-1.8); Alkaline Phosphatase 73 U/L (38-126); Anion Gap 13.5 mEq/L (5-15); Aspartate Amino Transferase 33 U/L (14-36); Bilirubin,Total 0.8 mg/dl (0.2-1.3); Blood Urea Nitrogen 15 mg/dl (7-17); Carbon Dioxide 24 mmol/L (22.0-30.0); Creatinine Clearance Estimated 33 mL/min (50-200); Estimated Glomerular Filt Rate 80 ml/min (>60); GFR (African American) 96 ML/MIN (>60); Total Protein,Serum 6.5 g/dl (6.3-8.2)
--- NOTE | 2023-02-16 11:13 | PC.NURSE ---
pt setting in bed call light at bs
[2023-02-16 11:14] LABS: Calcium 8.3 mg/dl (8.4-10.2); Glucose 214 mg/dl (74-100)
[2023-02-16 11:26] LABS: Troponin I 0.05 ng/ml (0.00-0.034)
[2023-02-16 11:50] LABS: Lymphocytes % 8 % (10-50); Monocytes % 6 % (2-9); Neutrophils % 84 % (42-76); Platelet Estimate Normal; RBC Morphology Normal; Total Cells Counted 100
--- NOTE | 2023-02-16 11:50 | PC.NURSE ---
BRAD ROSS wants to try to transition pt from NRB to cannula if possible states he turned O2 from 12L to 10L at this time on NRB contacted RT for assistance in titration
--- NOTE | 2023-02-16 12:13 | PC.NURSE ---
Patient was placed on venti mask per md by respiratory therapy. Patient did not tolerate and began to desat to the mid-80's even after repositioning. Pt exhibited worsening shortness of breath and increased work of breathing. MD notified, requested we start patient on venti-mask. Respiratory therapy notified. En route to set up vapotherm.
--- NOTE | 2023-02-16 12:22 | PC.NURSE ---
respiratory at bedside to place pt on vapotherm
--- NOTE | 2023-02-16 12:35 | PC.NURSE ---
RT states setting for vapotherm are 30L at 100% states SaO2 92% on vapotherm
--- NOTE | 2023-02-16 12:40 | PC.NURSE ---
ER MD Gilmore spoke with Dr. Briggs r/t POC possible admission wants to try and wean pt O2 in ER, contacted RT and notified them of plan to try to wean pt O2 in ER
--- NOTE | 2023-02-16 12:41 | PC.NURSE ---
contacted rad to check on status of CT result, states preliminary result is available, will send it down
[2023-02-16 12:51] LABS: Adenovirus,PCR Not Detected (NotDetected); Bordetella Pertussis Not Detected (NotDetected); Chlamydophila Pneumoniae, PCR Not Detected (NotDetected); Coronavirus 19, PCR Not Detected (NotDetected); Coronavirus 229E Not Detected (NotDetected); Coronavirus NL63 Not Detected (NotDetected); Coronavirus OC43 Not Detected (NotDetected); Coronovirus HKU1,PCR Not Detected (NotDetected); Human Metapneumovirus Not Detected (NotDetected); Influenza A, PCR Not Detected (NotDetected); Influenza AH1, 2009 Not Detected (NotDetected); Influenza AH1, PCR Not Detected (NotDetected); Influenza AH3,PCR Not Detected (NotDetected); Influenza B, PCR Not Detected (NotDetected); Mycoplasma Pneumoniae, PCR Not Detected (NotDetected); Parainfluenza 1, PCR Not Detected (NotDetected); Parainfluenza 2, PCR Not Detected (NotDetected); Parainfluenza 3, PCR Not Detected (NotDetected); Parainfluenza 4, PCR Not Detected (NotDetected); Respiratory Syncytial Virus Not Detected (NotDetected); Rhinovirus/Enterovirus Not Detected (NotDetected)
--- NOTE | 2023-02-16 13:37 | PC.NURSE ---
vapotherm settings decreased to 80% at this time. pt and family updated on POC
[2023-02-16 14:05] LABS: VBG Base Excess -7.2 mmol/L (-2.4-2.3); VBG HCO3 18.9 mmol/L (23-30); VBG Oxygen Saturation 83.4 % (50-70); VBG PCO2 37.8 mmol/L (35-51); VBG PH 7.32 mmol/L (7.31-7.41); VBG Total CO2 20.1 mmol/L (23-27)
--- NOTE | 2023-02-16 14:06 | PC.NURSE ---
RT states that they are unable to wean the patients oxygen settings, currently her vapotherm settings are 30L and 80% and her po2 was 51%. notified.
--- NOTE | 2023-02-16 14:14 | PC.NURSE ---
Rounded on patient. No needs at this time.
[2023-02-16 14:42] LABS: Troponin I 0.05 ng/ml (0.00-0.034)
--- NOTE | 2023-02-16 14:48 | PC.NURSE ---
Rounded on patient. No needs at this time. Call [facility] within reach
--- NOTE | 2023-02-16 14:49 | PC.NURSE ---
notified care management of admission
--- NOTE | 2023-02-16 15:24 | PC.NURSE ---
gave report to Katie Brewer RN
--- NOTE | 2023-02-16 15:30 | HMH.PHAINT1 ---
Pharmacy Intervention Comments: home medication list verified using list from most recent discharge for this facility on 02/10/23
--- NOTE | 2023-02-16 15:37 | PC.NURSE ---
arrived to floor by stretcher from ED
--- NOTE | 2023-02-16 15:51 | EXP.HP ---
History of Present Illness *Admission Date: 02/16/23 *Reason for visit:: hypoxia, short of breath *History of present illness: Ms. Mckenzie is an 85-year-old female with past medical history of COPD, hyperlipidemia, hypertension, diabetes, hypothyroid. Chronically on 3 to 4 L nasal cannula oxygen. She has had multiple hospital visits over the past month and a half for acute dyspnea and hypoxia. Previous COPD exacerbations showed rapid resolution with nebulizer treatment and return to baseline oxygen. Has completed multiple courses of antibiotics and steroids over the past several visits. Was discharged [facility] to [facility] for rehab. She presents today to the ER via EMS with oxygen saturation of 70% on her baseline O2. She was escalated to a nonrebreather with improvement in her O2 sats above 90. Chest imaging in the ER concerning for possible increase in right-sided airspace disease/opacification. White cell count normal at 10 with neutrophil predominance. Kidney function and electrolytes at baseline with persistent hyponatremia. Attempts to wean patient to home oxygen have been unsuccessful in the ER. Received triple dose DuoNebs with no significant improvement. Medicine was consulted for admission after inability to wean patient to baseline oxygen. On evaluation upon arriving to the medicine unit, patient is in mild distress on Vapotherm. [facility] Disclaimer: The information contained in this section may have been updated after the patient was seen, as this information can be updated by other users. Medical History Acute and chronic respiratory failure Chronic respiratory failure with hypoxia and hypercapnia COPD (chronic obstructive pulmonary disease) Dyspnea on exertion Nocturnal hypoxemia Pulmonary emphysema Unspecified kyphosis, site unspecified Surgical History History of appendectomy History of cardiac cath History of hernia repair History of hysterectomy Hx of cholecystectomy Family History No significant family history Social History Smoking Status: Unknown if ever smoked alcohol intake: never current occupational status: retired Travel in the last 8 weeks: None housing: house Review of Systems Review of Systems Review of systems (narrative): 14 point review of systems performed, pertinent positives and negatives as per HPI Meds Home Medications and Allergies Home Medications Medication Instructions Recorded Confirmed Type atorvastatin 40 mg tablet 40 mg PO HS Cholesterol 05/27/21 02/16/23 History cholecalciferol (vitamin D3) 25 25 mcg PO DAILY Supplement 05/27/21 02/16/23 History mcg (1,000 unit) tablet mecobalamin (vitamin B12) 1,000 1,000 mcg PO DAILY Supplement 05/27/21 02/16/23 History mcg chewable tablet vitamin E 670 mg (1,000 unit) 1,000 unit PO DAILY Supplement 05/27/21 02/16/23 History capsule tiotropium 2.5 mcg-olodaterol 2.5 2 puff inhalation DAILY Breathing 01/19/23 02/16/23 History mcg/actuation mist for inhalation Problems (Stiolto Respimat) levothyroxine 50 mcg tablet 50 mcg PO DAILY Thyroid 01/20/23 02/16/23 History ipratropium 0.5 mg-albuterol 3 mg 3 ml inhalation QID PRN shortness 01/21/23 02/16/23 Rx (2.5 mg base)/3 mL nebulization of breath or wheezing 90 days #270 soln mL metoprolol succinate 25 mg 25 mg PO BID High Blood Pressure 01/21/23 02/16/23 Rx tablet,extended release 24 hr 30 days #60 tabs lisinopril 20 mg tablet 20 mg PO DAILY High Blood Pressure 02/08/23 02/16/23 History acetaminophen 500 mg tablet 500 mg PO Q4HP PRN pain or fever 02/16/23 02/16/23 History amino acids-protein hydrolysate 17 1 ea PO DAILY wound prevenative 02/16/23 02/16/23 History gram-100 kcal/30 mL oral liquid (Pro-Stat AWC) que
[2023-02-16 16:38] LABS: ABG Base Excess -2.5 mmol/L (-2.4-2.3); ABG Oxygen Saturation 92 % (90-100); ABG PCO2 42.1 mmhg (35.0-45.0); ABG PH 7.36 mmol/L (7.35-7.45); ABG PO2 63.9 mmhg (80-100); ABG TCO2 24.3 mmhg (23-27)
[2023-02-16 16:40] LABS: Allen's Test Acceptable; Oxygen 100 %; Source Left Radial
[2023-02-17] VITALS (22 sets, daily range): BP systolic 98–170; BP diastolic 54–95; PULSE 60–94; RESP 18–24; TEMP 36.4–36.8; O2SAT 90–99; BMI 22.6
[2023-02-17 06:28] LABS: Basophils % 0.1 % (0.1-2.0); Eosinophils % 0.3 % (0.1-12.0); Hematocrit 37.4 % (37.0-47.0); Hemoglobin 11.3 g/dL (12.2-16.2); Lymphocytes # 0.7 K/mm3 (0.7-4.5); Lymphocytes % 10.4 % (10-50); Mean Corpuscular HGB Conc 30.4 g/dL (31.8-35.4); Mean Corpuscular Hemoglobin 28.8 pg (27.0-31.2); Mean Corpuscular Volume 94.9 fl (81-99); Mean Platelet Volume 8.5 fl (7.4-10.4); Monocytes # 0.8 K/mm3 (0.1-1.0); Monocytes % 10.5 % (1.7-9.3); Neutrophils # 5.6 K/mm3 (1.8-7.8); Neutrophils % 78.6 % (37.0-80.0); Platelet Count 289 K/mm3 (142-424); Red Blood Count 3.94 M/mm3 (4.20-5.40); Red Cell Distribution Width 14.3 % (11.5-17.5); White Blood Count 7.1 K/mm3 (4.8-10.8)
[2023-02-17 06:52] LABS: Alanine Aminotransferase 93 U/L (12-78); Albumin Level 2.8 g/dl (3.5-5.0); Albumin/Globulin Ratio 1.1 (1.1-1.8); Alkaline Phosphatase 68 U/L (38-126); Aspartate Amino Transferase 49 U/L (14-36); Bilirubin,Total 0.4 mg/dl (0.2-1.3); Blood Urea Nitrogen 19 mg/dl (7-17); Calcium 7.9 mg/dl (8.4-10.2); Carbon Dioxide 26 mmol/L (22.0-30.0); Chloride 96 mmol/L (98-107); Creatinine Clearance Estimated 35 mL/min (50-200); Estimated Glomerular Filt Rate 68 ml/min (>60); GFR (African American) 83 ML/MIN (>60); Globulin 2.6 g/dL (1.3-3.2); Glucose 145 mg/dl (74-100); Magnesium 1.7 mg/dl (1.6-2.3); Sodium 130 mmol/L (136-145); Total Protein,Serum 5.4 g/dl (6.3-8.2)
--- NOTE | 2023-02-17 09:22 | EXP.PULM.CON ---
History of Present Illness History of present illness: Ms. Del Real is a 82-year-old female COPD on long-term oxygen therapy at 2 to 3 L presented from nursing with worsening respiratory distress and increasing oxygen, needing high flow nasal-supplementation pulmonary was called for further evaluation and management [facility] Disclaimer: The information contained in this section may have been updated after the patient was seen, as this information can be updated by other users. Medical History (Updated 02/17/23 @ 10:21 by Maxi Srivastava MD) Acute and chronic respiratory failure Acute respiratory failure with hypoxia Chronic respiratory failure with hypoxia and hypercapnia COPD (chronic obstructive pulmonary disease) Dyspnea on exertion Nocturnal hypoxemia Pulmonary emphysema Unspecified kyphosis, site unspecified Surgical History History of appendectomy History of cardiac cath History of hernia repair History of hysterectomy Hx of cholecystectomy Family History No significant family history Social History (Updated 02/16/23 @ 18:20 by Katie Isaac RN) Smoking Status: Unknown if ever smoked alcohol intake: never current occupational status: retired Travel in the last 8 weeks: None housing: retirement lives independently: No marital status: Review of Systems Constitutional Constitutional: Reports anorexia, Reports body ache(s) and Reports fatigue Eyes Eyes: Denies eye discharge, Denies dry eyes, Denies irritation and Denies itchy eyes ENT Ears, Nose, Mouth, and Throat: Denies epistaxis, Denies facial pain, Denies lip swelling and Denies throat swelling *Cardiovascular Cardiovascular: Reports dyspnea and Reports dyspnea on exertion *Respiratory Respiratory: Reports chest congestion, Reports cough, Reports dyspnea, Reports dyspnea on exertion, Reports excessive phlegm production and Reports wheezing *Gastrointestinal Gastrointestinal: Denies abdominal pain, Denies belching and Denies cramping *Musculoskeletal Musculoskeletal: Reports back pain, Reports myalgias and Reports other (No small joint swelling or Pain) Psychiatric Psychiatric: Denies homicidal ideation and Denies suicidal ideation Endocrine Endocrine: Reports fatigue and Denies heat intolerance Hematologic/Lymphatic Hematologic/Lymphatic: Denies easy bleeding and Denies lymphadenopathy Allergic/Immunologic Allergic/Immunologic: Denies itchy eyes, Denies lip swelling, Denies throat swelling and Reports wheezing Pulmonology Exam Inpatient Vital signs and Labs for Last 24 Hours: Temp Pulse Resp BP Pulse Ox O2 Del Method O2 Flow Rate 97.9 F 71 18 118/67 96 Vapotherm 40 02/17/23 07:49 02/17/23 06:10 02/17/23 06:00 02/17/23 06:00 02/17/23 06:10 02/17/23 06:51 02/17/23 06:10 FiO2 65 02/17/23 06:10 Laboratory Results - last 24 hr 02/16/23 10:23: Lactate 1.3 02/16/23 10:25: VBG pH 7.39, VBG pCO2 41.1, VBG pO2 59.3 H, VBG HCO3 24.4, VBG Total CO2 25.6, VBG O2 Saturation 90.0 H, VBG Base Excess -0.6 02/16/23 10:50: WBC 10.7, RBC 4.24, Hgb 12.4, Hct 39.7, MCV 93.7, MCH 29.3, MCHC 31.3 L, RDW 14.2, Plt Count 334, MPV 8.1, Neut % (Auto) 87.7 H, Lymph % (Auto) 6.8 L, Posey % (Auto) 4.5, Eos % (Auto) 1.0, Baso % (Auto) 0.1, Neut # (Auto) 9.4 H, Lymph # (Auto) 0.7, Posey # (Auto) 0.5, Eos # (Auto) 0.1, Baso # (Auto) 0.0, Total Counted 100, Neutrophils % (Manual) 84 H, Band Neutrophils % 2.0, Lymphocytes % (Manual) 8 L, Monocytes % (Manual) 6, Platelet Estimate Normal, RBC Morphology Normal, Sodium 129 L, Potassium 4.5, Chloride 96 L, Carbon Dioxide 24, Anion Gap 13.5, BUN 15, Creatinine 0.70, Estimated Creat Clear 33, Estimated GFR 80, Est GFR ( Amer) 96, Glucose 214 H, Calcium 8.3 L, Total Bilirubin 0.8, AST 33, ALT 37, Alkaline Phosphatase 73, Troponin I 0.05 H, Total Protein 6.5, Albumin 3.5, Globulin 3.0, Albumin/Gl
--- NOTE | 2023-02-17 09:54 | HMH.OTEV ---
OT Inpatient Evaluation Rehab OT IP Evaluation Start: 02/16/23 16:53 Freq: ONCE Status: Active Protocol: Document 02/17/23 09:49 [facility] (Rec: 02/17/23 09:54 [facility] [id number]) Rehab OT IP Assessment Subjective History Pt oriented x 4 on arrival. Pt admitted on 02/16/23 due to respiratory failure. Ms. Mckenzie is an 85-year-old female with past medical history of COPD, hyperlipidemia, hypertension, diabetes, hypothyroid. Chronically on 3 to 4 L nasal cannula oxygen. She has had multiple hospital visits over the past month and a half for acute dyspnea and hypoxia. Previous COPD exacerbations showed rapid resolution with nebulizer treatment and return to baseline oxygen. Has completed multiple courses of antibiotics and steroids over the past several visits. Was discharged last visit from [facility] to [facility] for rehab. Prior to going to Rehab, pt did live alone and claims to be independent with ADLs. However, since going to rehab she has required assistance with all ADLs and is dependent with IADLs. Pt has been using rolling walker with functional trasnfers. Subjective I have been needing some help lately. Objective Patient Orientation Person,Place,Birthday,Month Upper Extremity Gross ROM WFL Bed Mobility bed mobility-scooting,bed mobility - supine/sit,bed mobility - rolling Assist Level Minimal x 1 (25% assist) Transfer Training Sit/Stand Transfer Assist Level Minimal x 2 (25% assist) Chair Transfer Ability Minimal x 2 (25% assist) Chair Transfer Technique Stand Step Pivot Rehab OT IP prob,goals,plan Problems Date of Evaluation: 02/17/23 OT IP Problems Bed Mobility,Transfers,Balance ,Self care,Safety Rehab Potential Rehab Potential
--- NOTE | 2023-02-17 09:58 | EXP.ACUTE.PN ---
Subjective *Date: 02/17/23 *Time: 13:05 Interval history: Patient still short of breath this morning. On Vapotherm 65%, 40 L. No nausea or vomiting overnight. No chest pain. Working with therapy on morning rounds. Improved orientation and mentation today. Appears at baseline. Medical Exam Vital signs and Labs for Last 24 Hours: Vital Signs Temp Pulse Pulse Resp BP BP BP 02/17/23 08:00 02/17/23 09:00 02/17/23 08:00 82 22 129/56 L 02/17/23 07:49 97.9 F 02/17/23 06:51 02/17/23 06:00 64 18 118/67 02/17/23 04:00 70 02/17/23 06:10 71 02/17/23 06:10 67 02/17/23 06:10 02/17/23 05:00 02/17/23 04:00 97.6 F 02/17/23 00:00 60 02/17/23 04:00 82 20 156/75 H 02/17/23 04:00 72 02/17/23 03:00 02/17/23 02:54 74 02/17/23 02:54 74 02/17/23 02:54 02/17/23 02:00 76 20 98/54 L 02/17/23 01:00 02/17/23 00:00 98.0 F 02/16/23 23:00 02/16/23 22:00 89 16 130/64 02/16/23 22:20 84 02/16/23 22:20 84 02/16/23 22:20 02/16/23 20:00 90 02/16/23 21:00 02/16/23 20:00 88 02/16/23 20:00 98.4 F 02/16/23 19:00 02/16/23 18:00 103 H 22 156/73 H 02/16/23 16:40 95 H 22 152/85 H 02/16/23 16:14 90 20 148/82 H 02/16/23 15:53 94 H 22 173/107 H 02/16/23 18:08 81 02/16/23 18:08 84 02/16/23 16:00 90 02/16/23 15:58 84 22 168/85 H 02/16/23 15:51 93 H 22 180/94 H 02/16/23 15:50 89 02/16/23 17:00 02/16/23 15:32 02/16/23 16:00 98.1 F 88 19 148/82 H 02/16/23 16:42 02/16/23 15:25 98.2 F 93 H 19 112/62 02/16/23 14:00 95 H 22 02/16/23 13:45 94 H 23 02/16/23 11:42 100 H 131/74 02/16/23 12:30 02/16/23 11:55 02/16/23 11:00 104 H 19 02/16/23 10:30 101 H 25 H 02/16/23 10:15 98.5 F 101 H 34 H 142/82 H Pulse Ox O2 Del Method O2 Flow Rate FiO2 02/17/23 08:00 96 Vapotherm 40 65 02/17/23 09:00 Vapotherm 40 02/17/23 08:00 92 L Vapotherm 40 65 02/17/23 07:49 02/17/23 06:51 Vapotherm 02/17/23 06:00 99 Vapotherm 40 65 02/17/23 04:00 02/17/23 06:10 02/17/23 06:10 02/17/23 06:10 96 Vapotherm 40 65 02/17/23 05:00 Vapotherm 02/17/23 04:00 02/17/23 00:00 02/17/23 04:00 93 L Vapotherm 40 65 02/17/23 04:00 93 L 40 65 02/17/23 03:00 Vapotherm 40 02/17/23 02:54 02/17/23 02:54 02/17/23 02:54 94 L Vapotherm 40 65 02/17/23 02:00 99 Vapotherm 40 90 02/17/23 01:00 Vapotherm 40 02/17/23 00:00 02/16/23 23:00 Vapotherm 40 02/16/23 22:00 93 L Vapotherm 40 90 02/16/23 22:20 02/16/23 22:20 02/16/23 22:20 94 L Vapotherm 40 90 02/16/23 20:00 02/16/23 21:00 Vapotherm 40 02/16/23 20:00 99 Vapotherm 40 100 02/16/23 20:00 02/16/23 19:00 Vapotherm 40 02/16/23 18:00 96 Vapotherm 40 100 02/16/23 16:40 93 L Vapotherm 40 100 02/16/23 16:14 94 L Vapotherm 40 100 02/16/23 15:53 95 Vapotherm 40 100 02/16/23 18:08 02/16/23 18:08 02/16/23 16:00 02/16/23 15:58 93 L Vapotherm 40 100 02/16/23 15:51 96 Vapotherm 40 100 02/16/23 15:50 Vapotherm 40 100 02/16/23 17:00 Vapotherm 40 02/16/23 15:32 Vapotherm 40 02/16/23 16:00 94 L Vapotherm 02/16/23 16:42 94 L Vapotherm 40 100 02/16/23 15:25 Room Air 02/16/23 14:00 90 L Vapotherm 30 02/16/23 13:45 91 L Vapotherm 30 02/16/23 11:42 97 Non-Rebreather 02/16/23 12:30 95 Vapotherm 30 100 02/16/23 11:55 90 L Venturi Mask 15 50 02/16/23 11:00 97 Non-Rebreather 15 02/16/23 10:30 91 L Non-Rebreather 02/16/23 10:15 70 L Nasal Cannula 4 Intake and Output 02/16/23 02/17/23 02/17/23 23:59 07:59 15:59
--- NOTE | 2023-02-17 10:01 | CT_ITS ---
FINAL REPORT TECHNIQUE: The patient was injected with IV contrast. Axial images were obtained through the chest in a PE protocol. 3-D reconstruction images were also performed. Individualized dose reduction techniques using automated exposure control or adjustment of the MA and/or KV according to patient's size were employed. CLINICAL HISTORY: acute hypoxemic resp failure COMPARISON: None FINDINGS: The thorax is distorted secondary to marked kyphosis of the cervical and thoracic spine. Mediastinal vasculature is adequately opacified. No pulmonary artery filling defects are identified to suggest PE. There is no aortic dissection. There is significant compression of the T2 vertebral body of approximately 70%. There are moderate bilateral pleural effusions present, as well as bibasilar consolidation. There are ground glass opacities present in the upper lobes bilaterally, probably related to an acute pneumonitis. There is no axillary adenopathy. There is no hilar or mediastinal adenopathy. Limited views of the upper abdomen reveal that the gallbladder has been surgically removed.. IMPRESSION: No pulmonary embolus or dissection. Moderate bilateral pleural effusions and bibasilar consolidation are present. There are also ground glass opacities in both upper lobes, likely acute pneumonitis. Marked thoracic kyphosis with a significant compression fracture of the T2 vertebral body of approximately 70%. Reviewed, Interpreted and Dictated by You Goldsmith MD Transcribed by Marilyn Hale Authenticated and [facility]
--- NOTE | 2023-02-17 10:51 | HMH.PTEV ---
Physical Therapy Evaluation Rehab PT IP Evaluation Start: 02/16/23 16:53 Freq: ONCE Status: Active Protocol: Document 02/17/23 10:46 [facility] (Rec: 02/17/23 10:51 [facility] [id number]) Subjective/History History History 82 yowf adm to [facility] with respiratory failure. Hx of COPD, HLD, HTN, DM, hypothyroid. She reports she generally lives alone and uses a RW for all mobility, 3 steps to enter the home. She was at SNF for rehab prior to this adm. Subjective Subjective Pt reports she feels a little betetr, agrees to mobility assessment. New diagnosis of cancer in past 12 No months? Rehab PT IP Eval Objective Appearance Patient Behavior Appropriate Patient Orientation Person,Place,Time Difficulty following instructions none Speech Pattern Clear Ambulation Patient Able to Ambulate No Balance Ability to Arise Able, uses arms to help Sitting Balance Steady, safe Standing Balance Unsteady Dynamic Sitting Balance Ability Fair Dynamic Standing Balance Ability Poor Transfers Bed Transfer Ability Minimal x 2 (25% assist) Chair Transfer Ability Minimal x 2 (25% assist) Sit to Stand Bed Transfer Ability Minimal x 2 (25% assist) Sit to Stand Chair Transfer Ability Minimal x 2 (25% assist) Rehab PT IP prob,goals,plan Problems Date of Evaluation: 02/17/23 PT IP Problems Bed Mobility,Transfers,Gait Rehab Potential Rehab Potential Good Plan PT Intervention Plan Bed Mobility,Transfers,Gait, Therapeutic Exercise PT Plan Frequency Daily Duration LOS Discharge Goals Bed Transfer Ability Minimal x 1 (25% assist) Sit to Stand Chair Transfer Ability Minimal x 1 (25% assist) Ambulation Assistive Device Rolling Walker Ambulation Distance (feet) 10 Discharge Plan PT Discharge Plan Pt is currently most appropriate to return to rehab placement once medically stable. She requires skilled intervention prior to return home due to increased risk of falls, injury, wounds, debility, and . Eval Complexity Eval Charge Codes 20976 - High Complexity
--- NOTE | 2023-02-17 11:49 | SW/DCPLANNER ---
Addendum entered by [facility] 02/26/23 08:57: Per Alma medeiros/ KATI this patient has been approved SNF level of care. I will update patient, MD and family. Addendum entered by [facility] 02/25/23 14:59: Alma medeiros/ REGGIECatalina is starting precert at this time. I will update patient/family. Patient is ready for discharge at this time. Addendum entered by [facility] 02/25/23 14:17: Patient is also agreeable to placement at [facility]. Addendum entered by [facility] 02/25/23 10:41: Jay medeiros/ [facility] stated they are unable to accept this patient. I spoke w/ patient's daughter/POA and she prefers information to be faxed to [facility]. Alma medeiros/ REGGIECatalina stated that beds are available and she will review referral this AM. Patient medically stable for discharge. Addendum entered by [facility] 02/25/23 08:16: Updated patient information has been faxed to [facility]. Addendum entered by [facility] 02/24/23 10:20: Updated patient information has been faxed to [facility]. Per MD patient is medically stable for discharge: I will continue to follow up wMone Rodriges. Addendum entered by [facility] 02/19/23 10:31: Patient was skilled at [facility] prior to hospital admission. Patient/family did not pay bed-hold at [facility] therefore bed is no longer available. [facility] stated that she may have female bed available open this weekend. Patient information has been faxed to [facility] to review for SNF level of care. MD stated that patient could be ready for discharge in the next 24-48 hours. Addendum entered by [facility] 02/18/23 13:44: Updated patient information has been faxed to [facility]. Original Note: This patient currently resides at [facility] level of care. I will continue to update [facility] Mos[facility]: discharge date is unknown at this time. Updated patient information has been faxed to [facility].
[2023-02-17 16:54] LABS: Procalcitonin 0.095 ng/mL (0.0-2.0)
--- NOTE | 2023-02-17 18:45 | PC.NURSE ---
Rounded on patient earlier, she denied having any questions or concerns. Bed locked an in the lowest position, call light within reach.
[2023-02-18] VITALS (23 sets, daily range): BP systolic 92–138; BP diastolic 55–79; PULSE 74–104; RESP 16–22; TEMP 36.3–36.8; O2SAT 90–98; BMI 22.4
[2023-02-18 06:44] LABS: Alanine Aminotransferase 66 U/L (12-78); Albumin Level 2.9 g/dl (3.5-5.0); Albumin/Globulin Ratio 1.1 (1.1-1.8); Alkaline Phosphatase 70 U/L (38-126); Anion Gap 8.9 mEq/L (5-15); Aspartate Amino Transferase 29 U/L (14-36); Bilirubin,Total 0.4 mg/dl (0.2-1.3); Blood Urea Nitrogen 22 mg/dl (7-17); Calcium 7.7 mg/dl (8.4-10.2); Carbon Dioxide 31 mmol/L (22.0-30.0); Chloride 94 mmol/L (98-107); Creatinine Clearance Estimated 34 mL/min (50-200); Estimated Glomerular Filt Rate 68 ml/min (>60); GFR (African American) 83 ML/MIN (>60); Globulin 2.7 g/dL (1.3-3.2); Glucose 140 mg/dl (74-100); Magnesium 1.6 mg/dl (1.6-2.3); Sodium 131 mmol/L (136-145); Total Protein,Serum 5.6 g/dl (6.3-8.2)
[2023-02-18 06:49] LABS: Potassium 2.9 mmoL/L (3.5-5.1)
[2023-02-18 09:17] LABS: Basophils % 0.2 % (0.1-2.0); Eosinophils # 0.2 K/mm3 (0.0-0.4); Eosinophils % 1.5 % (0.1-12.0); Hemoglobin 11.4 g/dL (12.2-16.2); Lymphocytes # 0.8 K/mm3 (0.7-4.5); Lymphocytes % 6.8 % (10-50); Mean Corpuscular HGB Conc 31.8 g/dL (31.8-35.4); Mean Corpuscular Hemoglobin 29.5 pg (27.0-31.2); Mean Corpuscular Volume 92.8 fl (81-99); Mean Platelet Volume 9.1 fl (7.4-10.4); Monocytes # 0.9 K/mm3 (0.1-1.0); Monocytes % 7.8 % (1.7-9.3); Neutrophils # 9.7 K/mm3 (1.8-7.8); Neutrophils % 83.6 % (37.0-80.0); Platelet Count 294 K/mm3 (142-424); Red Blood Count 3.88 M/mm3 (4.20-5.40); Red Cell Distribution Width 14.5 % (11.5-17.5); White Blood Count 11.5 K/mm3 (4.8-10.8)
--- NOTE | 2023-02-18 09:19 | EXP.PULM.PN ---
Subjective *Date: 02/18/23 *Time: 10:44 Interval history: No acute respiratory vents overnight. Patient admits continued improvement in her respiratory symptoms. Pulmonology Exam Inpatient Vital signs and Labs for Last 24 Hours: Temp Pulse Resp BP Pulse Ox O2 Del Method O2 Flow Rate 97.5 F L 80 20 126/60 98 Vapotherm 30 02/18/23 07:36 02/18/23 06:17 02/18/23 06:00 02/18/23 06:00 02/18/23 06:17 02/18/23 06:58 02/18/23 06:58 FiO2 70 02/18/23 06:17 Laboratory Results - last 24 hr 02/17/23 06:00: Procalcitonin 0.095 02/18/23 05:43: WBC 11.5 H D, RBC 3.88 L, Hgb 11.4 L, Hct 36.0 L, MCV 92.8, MCH 29.5, MCHC 31.8, RDW 14.5, Plt Count 294, MPV 9.1, Neut % (Auto) 83.6 H, Lymph % (Auto) 6.8 L, Pratt % (Auto) 7.8, Eos % (Auto) 1.5, Baso % (Auto) 0.2, Neut # (Auto) 9.7 H, Lymph # (Auto) 0.8, Pratt # (Auto) 0.9, Eos # (Auto) 0.2, Baso # (Auto) 0.0 02/18/23 06:00: Sodium 131 L, Potassium 2.9 L* D, Chloride 94 L, Carbon Dioxide 31 H, Anion Gap 8.9, BUN 22 H, Creatinine 0.80, Estimated Creat Clear 34, Estimated GFR 68, Est GFR ( Amer) 83, Glucose 140 H, Calcium 7.7 L, Magnesium 1.6, Total Bilirubin 0.4, AST 29 D, ALT 66 D, Alkaline Phosphatase 70, Total Protein 5.6 L, Albumin 2.9 L, Globulin 2.7, Albumin/Globulin Ratio 1.1 I & O for Labs for Last 24 Hours: Intake & Output 02/15/23 02/16/23 02/17/23 02/18/23 23:59 23:59 23:59 23:59 Intake Total 240 / 240 1180 / 1520 580 / 580 Output Total 300 / 1501 1702 / 1702 800 / 800 Balance -60 / -1261 -522 / -182 -220 / -220 Weight 111 lb 115 lb 5.886 oz 114 lb 3 oz Constitutional: Present moderate distress Head: Present normocephalic and atraumatic ENT: Present normal exam, normal oropharynx and mucous membranes moist Neck: Present normal inspection and full ROM Respiratory: Present respiratory distress, wheezes and diminished air movement; Absent able to speak in complete sentences Cardiac: Present S1/S2, Tachycardia and radial pulses present GI: Present soft and distention; Absent tenderness or guarding Rectal (female): Present deferred (female): Present deferred Skin: Present intact; Absent cyanosis or jaundice Neuro: Present alert, awake and oriented x 3 Extremities: Present normal inspection; Absent edema, clubbing or cyanosis Psychiatric: Present normal affect and cooperative Assessment and Plan *Assessment and plan (1) Acute respiratory failure with hypoxia: Status: Acute Category: Medical Code(s): J96.01 - Acute respiratory failure with hypoxia (2) Pneumonia: Status: Acute Qualifiers: Laterality: right Lung location: upper lobe of lung Pneumonia type: due to unspecified organism Qualified Code(s): J18.9 - Pneumonia, unspecified organism Category: Medical Code(s): J18.9 - Pneumonia, unspecified organism Plan Ms. Del Real is a 82-year-old female COPD on long-term oxygen therapy at 2 to 3 L presented from nursing with worsening respiratory distress. Chest x-ray upon admission, right upper and lower lobe airspace disease. Patient has multiple admissions recently with no significant infiltrates. She on her recent admissions treated with doxycycline and cefdinir. most recent admission procalcitonin within normal limits Afebrile. No evidence of leukocytosis on this admission. Comprehensive respiratory viral PCR panel negative on this admission. Interval update: CT did not show any evidence of pulmonary embolism. Bilateral pleural effusions along with groundglass opacities right upper lobe greater than left. Right lower lobe airspace disease noted. Afebrile. Slight worsening leukocytosis. Hemodynamically stable. No acute respiratory vents overnight. Admits improvement in symptoms, weaned to 50% FiO2 we will continue to wean as tolerated. Continue to receive diuretics, replete and potassium magnesium primary team and to continue diuretics. Given Significant Elevated BNP Earlier this Month We Will Repeat BNP and
--- NOTE | 2023-02-18 09:33 | DIET.NUTRFU ---
RD saw patient yesterday and reviewed nutritional status, poor intake. High risk for skin breakdown. Patient request soft diet, she did not bring dentures. She also agreed to try glucerna with trays for additional nutrition. See assessment for further recommendations.
[2023-02-18 09:54] LABS: NT Pro Brain Natriuretic Pep. 11300 pg/mL (0-450)
--- NOTE | 2023-02-18 10:04 | CA_ITS ---
APPROVED REPORT EXAM: Comprehensive 2D, Doppler, and color-flow Echocardiogram [employer]: Naomie Hatch, RCS, RVS Ht: 4 ft 11 in Wt: 114lbs BSA: 1.45 BP: 126/60 mmHg Rhythm: Atrial Fibrillation Indications: Congenital Heart Disease, COPD, Murmur 2D Dimensions IVSd 1.07 cm LVEF (Visual) 71.90 % PWd 1.05 cm LVDd 4.11 cm LVDs 2.44 cm Aortic Root 2.71 cm Left Atrium 3.34 cm LVOT 2.09 cm (M/F) 1.5-2.5 M-Mode Dimensions RVDd 0.95 cm (0.9-2.6) LA Diam 5.37 cm (1.9-4.0) LVDd 5.26 cm (3.5-5.7) Ao Diam 2.78 cm (2.0-3.7) LVDs 3.74 cm (3.5-5.7) IVSd 1.22 cm (0.6-1.1) PWd 0.69 cm (0.6-1.1) EF (Teich) 55.20% FS 28.90% EDV (Teich) 133.00 mL ESV (Teich) 59.60 mL LV Diastology E Decel Time 113.00 (160-240 msec) E/A Ratio 3.50 MED E' 5.50 (< 7 cm/sec) MED A' 9.70 cm/s E'/MED E' Ratio 20.33 (>14) LAT E' 11.10 (<10 cm/sec) LAT A' 8.90 cm/s E/LAT E' Ratio 10.07 (>14) Aortic Valve LVOT Max 87.00 (70-110 cm/s) LVOT VTI 15.25 cm AoV Peak Andrey. 136.00 (50-130 cm/s) AI PHT 414.00 ms AO Peak GR. 7.40 mmHg AO Mean GR. 3.70 (<5 mmHg) AO VTI 22.95 (18-25 cm) SCOTT (VTI) 2.28 (2.5-4.5 cm2) Mitral Valve MV A Velocity 32.00 (40-130 cm/s) E/A Ratio 3.50 MV Decel. Time 113.00 (160-240 ms) MV Mean Gr. 1.10 (<2mmHg) Pulmonary Valve MD End VMAX 333.00 cm/s Tricuspid Valve TR P. Velocity 325.00 cm/s RAP Estimate 10.00 mmHg RVSP 52.30 mmHg Left Ventricle The left ventricle is normal size. The left ventricular systolic function is normal. The left ventricular ejection fraction is within the normal range. There is increased LV wall thickness. The septum appears asynchronous. Grade II diastolic dysfunction is present. LVEF is 60% Right Ventricle The right ventricle is normal size. The right ventricular systolic function is normal. Atria Left atrium is mildly dilated. The right atrium size is normal. The interatrial septum is not well visualized. Aortic Valve The aortic valve is mildly thickened. There is no aortic valvular stenosis. Moderate aortic regurgitation. Mitral Valve The mitral valve is normal in structure. No evidence of mitral valve stenosis. Mild mitral regurgitation. Tricuspid Valve The tricuspid valve leaflets are thin and pliable. Mild to moderate tricuspid regurgitation. RVSP is 40-45 mmHg. Pulmonic Valve The pulmonary valve is normal in structure. Mild pulmonic regurgitation. Great Vessels The aortic root is normal in size. The ascending aorta is normal in size. IVC is normal in size and collapses >50% with inspiration. Pericardium There is no pericardial effusion. Other Information Study Quality: Fair Conclusion Normal biventricular systolic function. Normal LV dimensions. Moderate AI Mild to moderate TR Elevated RVSP 40-45 mmHg Electronically signed by : Clary Villa MD 02/20/2023 20:02:18
--- NOTE | 2023-02-18 11:25 | EXP.ACUTE.PN ---
Subjective *Date: 02/18/23 *Time: 11:25 Interval history: Patient has been able to wean to 50% oxygen on Vapotherm this morning. Still quite short of breath. No nausea, vomiting, chest pain or fevers overnight. Had adequate response to diuresis yesterday with -1 L. Tolerating p.o. intake. Medical Exam Vital signs and Labs for Last 24 Hours: Vital Signs Temp Pulse Pulse Resp BP Pulse Ox O2 Del Method 02/18/23 11:13 97.5 F L 02/18/23 08:30 82 20 135/63 95 Vapotherm 02/18/23 10:00 74 20 116/73 91 L Vapotherm 02/18/23 08:23 86 20 92/68 L 95 Vapotherm 02/18/23 11:07 Vapotherm 02/18/23 08:00 85 02/18/23 09:37 93 L Vapotherm 02/18/23 08:00 85 95 Vapotherm 02/18/23 09:00 Vapotherm 02/18/23 07:36 97.5 F L 02/18/23 06:58 Vapotherm 02/18/23 06:17 80 02/18/23 06:17 84 02/18/23 06:17 98 Vapotherm 02/18/23 06:00 85 20 126/60 97 Vapotherm 02/18/23 04:00 86 02/18/23 04:00 87 93 L Vapotherm 02/18/23 04:00 84 20 138/71 93 L Vapotherm 02/17/23 20:00 92 H 18 170/95 H 92 L Vapotherm 02/18/23 05:00 Vapotherm 02/18/23 04:00 97.9 F 02/18/23 03:00 Vapotherm 02/18/23 02:00 84 18 131/72 93 L Vapotherm 02/18/23 00:00 100 H 02/18/23 00:00 80 02/18/23 01:00 Vapotherm 02/18/23 00:00 97.4 F L 02/18/23 00:00 81 18 104/70 L 92 L Vapotherm 02/17/23 22:00 84 18 124/74 93 L Vapotherm 02/17/23 23:00 Vapotherm 02/17/23 21:00 Vapotherm 02/17/23 20:00 94 L Vapotherm 02/17/23 23:24 83 02/17/23 23:23 84 02/17/23 22:21 02/17/23 17:30 81 02/17/23 17:20 83 02/17/23 20:00 97.6 F 02/17/23 19:00 Vapotherm 02/17/23 17:00 Vapotherm 02/17/23 18:00 92 H 22 148/73 H 91 L Vapotherm 02/17/23 16:00 91 H 24 118/87 93 L Vapotherm 02/17/23 16:00 90 02/17/23 16:00 97.8 F 02/17/23 15:39 94 L Vapotherm 02/17/23 15:00 Vapotherm 02/17/23 14:00 88 22 106/84 L 91 L Vapotherm 02/17/23 12:00 94 H 02/17/23 13:00 Vapotherm 02/17/23 12:00 84 24 137/60 92 L Vapotherm 02/17/23 11:35 Vapotherm 02/17/23 11:32 98.3 F O2 Flow Rate FiO2 02/18/23 11:13 02/18/23 08:30 30 70 02/18/23 10:00 30 50 02/18/23 08:23 30 70 02/18/23 11:07 30 02/18/23 08:00 02/18/23 09:37 30 60 02/18/23 08:00 30 70 02/18/23 09:00 30 02/18/23 07:36 02/18/23 06:58 30 02/18/23 06:17 02/18/23 06:17 02/18/23 06:17 70 02/18/23 06:00 30 70 02/18/23 04:00 02/18/23 04:00 30 70 02/18/23 04:00 30 70 02/17/23 20:00 30 60 02/18/23 05:00 02/18/23 04:00 02/18/23 03:00 02/18/23 02:00 70 02/18/23 00:00 02/18/23 00:00 02/18/23 01:00 30 02/18/23 00:00 02/18/23 00:00 30 60 02/17/23 22:00 30 60 02/17/23 23:00 30 02/17/23 21:00 30 02/17/23 20:00 30 60 02/17/23 23:24 02/17/23 23:23 02/17/23 22:21 30 60 02/17/23 17:30 02/17/23 17:20 02/17/23 20:00 02/17/23 19:00 02/17/23 17:00 02/17/23 18:00 30 60 02/17/23 16:00 30 60 02/17/23 16:00 02/17/23 16:00 02/17/23 15:39 30 60 02/17/23 15:00 30 02/17/23 14:00 30 60 02/17/23 12:00 02/17/23 13:00 30 02/17/23 12:00 30 60 02/17/23 11:35 30 02/17/23 11:32 Intake and Output 02/17/23 02/18/23 02/18/23 23:59 07:59 15:59 Intake Total 480 / 1520 580 / 580 Output Total 200 / 1702 800 / 800 0 / 800 Balance 280 / -182 -220 / -220 0 / -220 Intake: Intake, Oral Amount 480 / 1320 480 / 480 Intake, Total IV Amount 100 / 100 Cefepime HCl 2 gm In 0.9 % 100 / 100 Sodium Chloride 100 ml @ 200 mls/hr IV Q12 [facility] Rx#:[id number] Output: Output, Urine Amount 200 / 1702 800 / 800 0 / 800 Other: Number of Voids 3 Number
--- NOTE | 2023-02-18 18:17 | PC.NURSE ---
pt has voided per bsc numerous times this shift. when she voids urine she is also noted to have a bm as well. staff dumped unmeasured urine that was mixed with stool.
[2023-02-18 20:35] LABS: Anion Gap 12.6 mEq/L (5-15); Blood Urea Nitrogen 27 mg/dl (7-17); Calcium 8.1 mg/dl (8.4-10.2); Carbon Dioxide 34 mmol/L (22.0-30.0); Chloride 90 mmol/L (98-107); Creatinine Clearance Estimated 34 mL/min (50-200); Estimated Glomerular Filt Rate 80 ml/min (>60); GFR (African American) 96 ML/MIN (>60); Glucose 211 mg/dl (74-100); Magnesium 1.7 mg/dl (1.6-2.3); Potassium 4.6 mmoL/L (3.5-5.1); Sodium 132 mmol/L (136-145)
[2023-02-19] VITALS (25 sets, daily range): BP systolic 101–164; BP diastolic 47–99; PULSE 74–102; RESP 15–22; TEMP 36.4–36.8; O2SAT 88–98; BMI 22.1
[2023-02-19 06:17] LABS: Basophils % 0.3 % (0.1-2.0); Eosinophils # 0.6 K/mm3 (0.0-0.4); Eosinophils % 7.2 % (0.1-12.0); Hematocrit 35.6 % (37.0-47.0); Hemoglobin 11.1 g/dL (12.2-16.2); Lymphocytes # 0.7 K/mm3 (0.7-4.5); Lymphocytes % 8.9 % (10-50); Mean Corpuscular HGB Conc 31.2 g/dL (31.8-35.4); Mean Corpuscular Hemoglobin 28.8 pg (27.0-31.2); Mean Corpuscular Volume 92.4 fl (81-99); Mean Platelet Volume 8.2 fl (7.4-10.4); Monocytes # 0.7 K/mm3 (0.1-1.0); Monocytes % 9.4 % (1.7-9.3); Neutrophils # 5.7 K/mm3 (1.8-7.8); Neutrophils % 74.2 % (37.0-80.0); Platelet Count 269 K/mm3 (142-424); Red Blood Count 3.85 M/mm3 (4.20-5.40); Red Cell Distribution Width 14.4 % (11.5-17.5); White Blood Count 7.7 K/mm3 (4.8-10.8)
[2023-02-19 06:26] LABS: Alanine Aminotransferase 52 U/L (12-78); Albumin Level 2.9 g/dl (3.5-5.0); Alkaline Phosphatase 60 U/L (38-126); Anion Gap 7.3 mEq/L (5-15); Aspartate Amino Transferase 26 U/L (14-36); Bilirubin,Total 0.6 mg/dl (0.2-1.3); Blood Urea Nitrogen 23 mg/dl (7-17); Calcium 7.9 mg/dl (8.4-10.2); Carbon Dioxide 36 mmol/L (22.0-30.0); Chloride 94 mmol/L (98-107); Creatinine Clearance Estimated 34 mL/min (50-200); Estimated Glomerular Filt Rate 60 ml/min (>60); GFR (African American) 72 ML/MIN (>60); Globulin 2.8 g/dL (1.3-3.2); Glucose 137 mg/dl (74-100); Potassium 4.3 mmoL/L (3.5-5.1); Sodium 133 mmol/L (136-145); Total Protein,Serum 5.7 g/dl (6.3-8.2)
[2023-02-19 06:30] LABS: Magnesium 1.8 mg/dl (1.6-2.3)
--- NOTE | 2023-02-19 07:54 | EXP.ACUTE.PN ---
Subjective *Date: 02/19/23 *Time: 10:37 Interval history: Patient still requiring Vapotherm/high flow at 25 L 50% this morning. States she feels a little short of breath this morning. Diuresing well with at least 1 L of output yesterday net negative. Labs this morning with improvement in potassium. No nausea or vomiting. Tolerating p.o. intake. Medical Exam Vital signs and Labs for Last 24 Hours: Vital Signs Temp Pulse Pulse Resp BP Pulse Ox O2 Del Method 02/19/23 07:20 97.5 F L 02/19/23 06:10 97 H 02/19/23 06:10 94 H 02/19/23 06:10 88 L Vapotherm 02/19/23 04:00 90 02/19/23 04:00 Vapotherm 02/19/23 04:00 97.6 F 77 18 114/83 93 L Vapotherm 02/19/23 06:00 87 15 164/65 H 98 Vapotherm 02/19/23 05:00 Vapotherm 02/19/23 03:00 Vapotherm 02/19/23 00:00 80 02/18/23 20:00 97.7 F 77 16 130/73 94 L Vapotherm 02/19/23 02:00 77 16 114/62 94 L Vapotherm 02/19/23 01:00 Vapotherm 02/19/23 00:00 97.7 F 91 H 16 108/74 L 91 L Vapotherm 02/18/23 22:00 79 16 101/55 L 98 Vapotherm 02/18/23 23:00 Vapotherm 02/18/23 21:00 Vapotherm 02/18/23 20:00 Vapotherm 02/19/23 00:16 94 L Vapotherm 02/18/23 20:00 90 02/18/23 19:00 Vapotherm 02/18/23 18:00 97 H 22 121/77 91 L Vapotherm 02/18/23 18:17 104 H 02/18/23 18:17 104 H 02/18/23 18:17 90 L Vapotherm 02/18/23 17:29 Vapotherm 02/18/23 16:00 83 02/18/23 16:00 93 H 22 128/61 92 L Vapotherm 09/20/23 15:42 81 97 Vapotherm 02/18/23 15:41 Vapotherm 02/18/23 12:00 90 02/18/23 15:12 98.2 F 02/18/23 14:00 78 22 115/60 95 Vapotherm 02/18/23 13:42 80 18 02/18/23 13:42 78 02/18/23 13:42 87 02/18/23 13:26 Vapotherm 02/18/23 12:22 89 20 111/79 93 L Vapotherm 02/18/23 11:13 97.5 F L 02/18/23 08:30 82 20 135/63 95 Vapotherm 02/18/23 10:00 74 20 116/73 91 L Vapotherm 02/18/23 08:23 86 20 92/68 L 95 Vapotherm 02/18/23 11:07 Vapotherm 02/18/23 08:00 85 02/18/23 09:37 93 L Vapotherm 02/18/23 08:00 85 95 Vapotherm 02/18/23 09:00 Vapotherm O2 Flow Rate FiO2 02/19/23 07:20 02/19/23 06:10 02/19/23 06:10 02/19/23 06:10 25 45 02/19/23 04:00 02/19/23 04:00 25 45 02/19/23 04:00 25 45 02/19/23 06:00 25 45 02/19/23 05:00 25 02/19/23 03:00 25 02/19/23 00:00 02/18/23 20:00 50 02/19/23 02:00 25 45 02/19/23 01:00 25 02/19/23 00:00 45 02/18/23 22:00 50 02/18/23 23:00 30 02/18/23 21:00 30 02/18/23 20:00 30 50 02/19/23 00:16 30 45 02/18/23 20:00 02/18/23 19:00 30 02/18/23 18:00 30 50 02/18/23 18:17 02/18/23 18:17 02/18/23 18:17 30 50 02/18/23 17:29 30 02/18/23 16:00 02/18/23 16:00 30 50 02/18/23 15:42 30 50 02/18/23 15:41 30 02/18/23 12:00 02/18/23 15:12 02/18/23 14:00 30 50 02/18/23 13:42 02/18/23 13:42 02/18/23 13:42 02/18/23 13:26 30 02/18/23 12:22 30 50 02/18/23 11:13 02/18/23 08:30 30 70 02/18/23 10:00 30 50 02/18/23 08:23 30 70 02/18/23 11:07 30 02/18/23 08:00 02/18/23 09:37 30 60 02/18/23 08:00 30 70 02/18/23 09:00 30 Intake and Output 02/18/23 02/18/23 02/19/23 15:59 23:59 07:59 Intake Total 240 / 1000 180 / 1000 120 / 120 Output Total 600 / 2400 900 / 2400 250 / 250 Balance -360 / -1400 -720 / -1400 -130 / -130 Intake: Intake, Oral Amount 240 / 900 180 / 900 120 / 120 Output: Output, Urine Amount 600 / 2400 900 / 2400 250 / 250 Other: Number of Voids 1 1 Number of Unmeasured Voids 0 0 0 Number of Bowel Movements 1 1 1 Weight 51.256 kg Patient Weight 02/19/23 23:59 Weight 51.256 kg Laboratory Results - last 24 hr 02/18/23 05:43: WBC 11.5 H D, RBC 3.88 L, Hgb 11.4 L, Hct
--- NOTE | 2023-02-19 09:23 | EXP.PULM.PN ---
Subjective *Date: 02/19/23 *Time: 12:14 Interval history: Patient denies any new complaints. Denies any significant improvement in her respiratory symptoms since yesterday. Pulmonology Exam Inpatient Vital signs and Labs for Last 24 Hours: Temp Pulse Resp BP Pulse Ox O2 Del Method O2 Flow Rate 97.5 F L 97 H 15 164/65 H 88 L Vapotherm 25 02/19/23 07:20 02/19/23 06:10 02/19/23 06:00 02/19/23 06:00 02/19/23 06:10 02/19/23 06:10 02/19/23 06:10 FiO2 45 02/19/23 06:10 Laboratory Results - last 24 hr 02/18/23 06:00: NT-Pro-B Natriuret Pep 94886 H 02/18/23 19:45: Sodium 132 L, Potassium 4.6 D, Chloride 90 L, Carbon Dioxide 34 H, Anion Gap 12.6, BUN 27 H, Creatinine 0.70, Estimated Creat Clear 34, Estimated GFR 80, Est GFR ( Amer) 96, Glucose 211 H D, Calcium 8.1 L, Magnesium 1.7 02/19/23 06:01: WBC 7.7 D, RBC 3.85 L, Hgb 11.1 L, Hct 35.6 L, MCV 92.4, MCH 28.8, MCHC 31.2 L, RDW 14.4, Plt Count 269, MPV 8.2, Neut % (Auto) 74.2, Lymph % (Auto) 8.9 L, [place] % (Auto) 9.4 H, Eos % (Auto) 7.2, Baso % (Auto) 0.3, Neut # (Auto) 5.7, Lymph # (Auto) 0.7, [place] # (Auto) 0.7, Eos # (Auto) 0.6 H, Baso # (Auto) 0.0, Sodium 133 L, Potassium 4.3, Chloride 94 L, Carbon Dioxide 36 H, Anion Gap 7.3, BUN 23 H, Creatinine 0.90 D, Estimated Creat Clear 34, Estimated GFR 60, Est GFR ( Amer) 72 D, Glucose 137 H D, Calcium 7.9 L, Magnesium 1.8, Total Bilirubin 0.6, AST 26, ALT 52, Alkaline Phosphatase 60, Total Protein 5.7 L, Albumin 2.9 L, Globulin 2.8, Albumin/Globulin Ratio 1.0 L I & O for Labs for Last 24 Hours: Intake & Output 02/16/23 02/17/23 02/18/23 02/19/23 23:59 23:59 23:59 23:59 Intake Total 240 / 240 1180 / 1520 1000 / 1000 120 / 120 Output Total 300 / 1501 1702 / 1702 2300 / 2400 375 / 375 Balance -60 / -1261 -522 / -182 -1300 / -1400 -255 / -255 Weight 111 lb 115 lb 5.886 oz 114 lb 3 oz 113 lb Microbiology Reports for the Last 24 Hours: Microbiology 02/16/23 10:29 Blood Blood Culture - Preliminary NO GROWTH AFTER 48 HOURS 02/16/23 10:20 Blood Blood Culture - Preliminary NO GROWTH AFTER 48 HOURS Constitutional: Present moderate distress Head: Present normocephalic and atraumatic ENT: Present normal exam, normal oropharynx and mucous membranes moist Neck: Present normal inspection and full ROM Respiratory: Present respiratory distress, wheezes and diminished air movement; Absent able to speak in complete sentences Cardiac: Present S1/S2, Tachycardia and radial pulses present GI: Present soft and distention; Absent tenderness or guarding Rectal (female): Present deferred (female): Present deferred Skin: Present intact; Absent cyanosis or jaundice Neuro: Present alert, awake and oriented x 3 Extremities: Present normal inspection; Absent edema, clubbing or cyanosis Psychiatric: Present normal affect and cooperative Assessment and Plan *Assessment and plan (1) Acute respiratory failure with hypoxia: Status: Acute Category: Medical Code(s): J96.01 - Acute respiratory failure with hypoxia (2) Pneumonia: Status: Acute Qualifiers: Laterality: right Lung location: upper lobe of lung Pneumonia type: due to unspecified organism Qualified Code(s): J18.9 - Pneumonia, unspecified organism Category: Medical Code(s): J18.9 - Pneumonia, unspecified organism Plan Ms. Del Real is a 82-year-old female COPD on long-term oxygen therapy at 2 to 3 L presented from nursing with worsening respiratory distress. Chest x-ray upon admission, right upper and lower lobe airspace disease. Patient has multiple admissions recently with no significant infiltrates. She on her recent admissions treated with doxycycline and cefdinir. most recent admission procalcitonin within normal limits Afebrile. No evidence of leukocytosis on this admission. Comprehensive respiratory viral PCR panel negative on this admission. CT did no
[2023-02-19 18:24] LABS: Chloride 94 mmol/L (98-107); Potassium 4.1 mmoL/L (3.5-5.1); Sodium 133 mmol/L (136-145)
[2023-02-19 18:26] LABS: Blood Urea Nitrogen 27 mg/dl (7-17); Creatinine Clearance Estimated 34 mL/min (50-200); Estimated Glomerular Filt Rate 68 ml/min (>60); GFR (African American) 83 ML/MIN (>60)
[2023-02-19 18:27] LABS: Anion Gap 9.1 mEq/L (5-15); Calcium 7.9 mg/dl (8.4-10.2); Carbon Dioxide 34 mmol/L (22.0-30.0); Glucose 164 mg/dl (74-100); Magnesium 1.9 mg/dl (1.6-2.3)
[2023-02-20] VITALS (22 sets, daily range): BP systolic 91–144; BP diastolic 50–97; PULSE 60–90; RESP 19–24; TEMP 36.3–36.7; O2SAT 90–97; BMI 22.6
[2023-02-20 06:39] LABS: Alanine Aminotransferase 42 U/L (12-78); Albumin Level 2.7 g/dl (3.5-5.0); Alkaline Phosphatase 55 U/L (38-126); Anion Gap 6.1 mEq/L (5-15); Aspartate Amino Transferase 22 U/L (14-36); Bilirubin,Total 0.3 mg/dl (0.2-1.3); Blood Urea Nitrogen 23 mg/dl (7-17); Carbon Dioxide 35 mmol/L (22.0-30.0); Chloride 93 mmol/L (98-107); Creatinine Clearance Estimated 35 mL/min (50-200); Estimated Glomerular Filt Rate 68 ml/min (>60); GFR (African American) 83 ML/MIN (>60); Globulin 2.7 g/dL (1.3-3.2); Glucose 119 mg/dl (74-100); Potassium 4.1 mmoL/L (3.5-5.1); Sodium 130 mmol/L (136-145); Total Protein,Serum 5.4 g/dl (6.3-8.2)
[2023-02-20 06:48] LABS: Magnesium 1.9 mg/dl (1.6-2.3)
[2023-02-20 08:02] LABS: NT Pro Brain Natriuretic Pep. 3900 pg/mL (0-450)
--- NOTE | 2023-02-20 08:10 | EXP.ACUTE.PN ---
Subjective *Date: 02/20/23 *Time: 13:00 Interval history: Patient still requiring Vapotherm/high flow at 30 L 40% this morning. States she feels a little better this morning. Diuresing well with at least 1 L of output yesterday net negative. Labs this morning with improvement in potassium. No nausea or vomiting. Tolerating p.o. intake. Medical Exam Vital signs and Labs for Last 24 Hours: Vital Signs Temp Pulse Pulse Pulse Resp BP Pulse Ox 02/20/23 07:51 98.1 F 02/20/23 06:23 02/20/23 06:00 76 21 121/97 H 93 L 02/20/23 06:10 72 02/20/23 06:10 76 02/20/23 06:10 91 L 02/20/23 05:00 02/20/23 04:00 60 02/20/23 04:00 65 19 91/50 L 91 L 02/20/23 03:50 92 L 02/20/23 02:43 02/20/23 02:00 70 23 103/56 L 92 L 02/20/23 01:00 02/20/23 00:00 70 21 97/56 L 92 L 02/20/23 00:00 70 02/19/23 20:00 90 02/20/23 00:42 75 02/20/23 00:42 76 02/20/23 00:42 96 02/19/23 22:58 02/19/23 22:00 74 20 113/65 92 L 02/19/23 20:55 02/19/23 20:00 98.2 F 85 20 149/55 H 94 L 02/19/23 19:31 02/19/23 18:44 02/19/23 18:00 82 20 129/68 94 L 02/19/23 18:13 78 02/19/23 18:13 78 02/19/23 17:00 02/19/23 17:10 90 91 L 02/19/23 16:52 02/19/23 16:41 95 02/19/23 16:00 84 02/19/23 17:08 91 L 02/19/23 16:00 82 22 156/47 H 92 L 02/19/23 15:32 80 20 147/79 H 92 L 02/19/23 14:00 77 22 131/99 H 96 02/19/23 12:00 87 20 154/77 H 89 L 02/19/23 11:00 81 20 103/60 L 93 L 02/19/23 10:00 94 H 20 101/77 L 91 L 02/19/23 09:00 94 H 18 150/95 H 93 L 02/19/23 12:00 93 H 02/19/23 15:04 97.6 F 02/19/23 14:00 83 18 131/99 H 97 02/19/23 15:00 02/19/23 13:00 02/19/23 11:00 02/19/23 09:00 02/19/23 11:14 91 H 02/19/23 11:14 83 02/19/23 11:14 97 02/19/23 10:57 97.8 F O2 Del Method O2 Flow Rate FiO2 02/20/23 07:51 02/20/23 06:23 Vapotherm 30 02/20/23 06:00 Vapotherm 30 40 02/20/23 06:10 02/20/23 06:10 02/20/23 06:10 Vapotherm 30 40 02/20/23 05:00 Vapotherm 30 02/20/23 04:00 02/20/23 04:00 Vapotherm 30 40 02/20/23 03:50 Vapotherm 30 40 02/20/23 02:43 Vapotherm 30 02/20/23 02:00 Vapotherm 30 40 02/20/23 01:00 Vapotherm 30 02/20/23 00:00 Vapotherm 30 40 02/20/23 00:00 02/19/23 20:00 02/20/23 00:42 02/20/23 00:42 02/20/23 00:42 Vapotherm 30 40 02/19/23 22:58 Vapotherm 30 02/19/23 22:00 Vapotherm 30 45 02/19/23 20:55 Vapotherm 30 02/19/23 20:00 Vapotherm 30 50 02/19/23 19:31 Vapotherm 30 50 02/19/23 18:44 Vapotherm 30 02/19/23 18:00 Vapotherm 30 50 02/19/23 18:13 02/19/23 18:13 02/19/23 17:00 Vapotherm 30 02/19/23 17:10 Vapotherm 30 40 02/19/23 16:52 30 40 02/19/23 16:41 Vapotherm 30 35 02/19/23 16:00 02/19/23 17:08 Vapotherm 30 40 02/19/23 16:00 Vapotherm 30 45 02/19/23 15:32 Vapotherm 30 45 02/19/23 14:00 Vapotherm 30 50 02/19/23 12:00 Vapotherm 30 50 02/19/23 11:00 Vapotherm 30 50 02/19/23 10:00 Vapotherm 30 50 02/19/23 09:00 Vapotherm 30 50 02/19/23 12:00 02/19/23 15:04 02/19/23 14:00 Vapotherm 02/19/23 15:00 Vapotherm 30 02/19/23 13:00 Vapotherm 30 02/19/23 11:00 Vapotherm 30 02/19/23 09:00 Vapotherm 30 02/19/23 11:14 02/19/23 11:14 02/19/23 11:14 Vapotherm 30 50 02/19/23 10:57 Intake and Output 02/19/23 02/20/23 02/20/23 23:59 07:59 15:59 Intake Total 220 / 720 440 / 440 Output Total 300 / 1975 600 / 600 Balance -80 / -1255 -160 / -160 Intake: Intake, Oral Amount 120 / 620 440 / 440 Intake, Total IV Amount 100 / 100 Cefepime HCl 2 gm In 0.9 % 100 / 100 S
--- NOTE | 2023-02-20 09:45 | EXP.PULM.PN ---
Subjective *Date: 02/20/23 *Time: 11:45 Interval history: No acute respiratory vents overnight. Pulmonology Exam Inpatient Vital signs and Labs for Last 24 Hours: Temp Pulse Resp BP Pulse Ox O2 Del Method O2 Flow Rate 98.1 F 82 24 112/53 L 90 L Vapotherm 30 02/20/23 07:51 02/20/23 08:00 02/20/23 08:00 02/20/23 08:00 02/20/23 08:00 02/20/23 08:32 02/20/23 08:32 FiO2 40 02/20/23 08:00 Laboratory Results - last 24 hr 02/19/23 18:10: Sodium 133 L, Potassium 4.1, Chloride 94 L, Carbon Dioxide 34 H, Anion Gap 9.1, BUN 27 H, Creatinine 0.80, Estimated Creat Clear 34, Estimated GFR 68, Est GFR ( Amer) 83, Glucose 164 H, Calcium 7.9 L, Magnesium 1.9 02/20/23 05:55: Sodium 130 L, Potassium 4.1, Chloride 93 L, Carbon Dioxide 35 H, Anion Gap 6.1, BUN 23 H, Creatinine 0.80, Estimated Creat Clear 35, Estimated GFR 68, Est GFR ( Amer) 83, Glucose 119 H D, Calcium 8.0 L, Magnesium 1.9, Total Bilirubin 0.3, AST 22, ALT 42, Alkaline Phosphatase 55, NT-Pro-B Natriuret Pep 3900 H, Total Protein 5.4 L, Albumin 2.7 L, Globulin 2.7, Albumin/Globulin Ratio 1.0 L I & O for Labs for Last 24 Hours: Intake & Output 02/17/23 02/18/23 02/19/23 02/20/23 23:59 23:59 23:59 23:59 Intake Total 1180 / 1520 1000 / 1000 520 / 720 440 / 440 Output Total 1702 / 1702 2300 / 2400 1675 / 1975 600 / 600 Balance -522 / -182 -1300 / -1400 -1155 / -1255 -160 / -160 Weight 115 lb 5.886 oz 114 lb 3 oz 113 lb 115 lb 2 oz Microbiology Reports for the Last 24 Hours: Microbiology 02/17/23 12:00 Nose - Nasal MRSA Culture - Final Negative Constitutional: Present moderate distress Head: Present normocephalic and atraumatic ENT: Present normal exam, normal oropharynx and mucous membranes moist Neck: Present normal inspection and full ROM Respiratory: Present respiratory distress, wheezes and diminished air movement; Absent able to speak in complete sentences Cardiac: Present S1/S2, Tachycardia and radial pulses present GI: Present soft and distention; Absent tenderness or guarding Rectal (female): Present deferred (female): Present deferred Skin: Present intact; Absent cyanosis or jaundice Neuro: Present alert, awake and oriented x 3 Extremities: Present normal inspection; Absent edema, clubbing or cyanosis Psychiatric: Present normal affect and cooperative Assessment and Plan *Assessment and plan (1) Acute respiratory failure with hypoxia: Status: Acute Category: Medical Code(s): J96.01 - Acute respiratory failure with hypoxia (2) Pneumonia: Status: Acute Qualifiers: Laterality: right Lung location: upper lobe of lung Pneumonia type: due to unspecified organism Qualified Code(s): J18.9 - Pneumonia, unspecified organism Category: Medical Code(s): J18.9 - Pneumonia, unspecified organism Plan Ms. Del Real is a 82-year-old female COPD on long-term oxygen therapy at 2 to 3 L presented from nursing with worsening respiratory distress. Chest x-ray upon admission, right upper and lower lobe airspace disease. Patient has multiple admissions recently with no significant infiltrates. She on her recent admissions treated with doxycycline and cefdinir. most recent admission procalcitonin within normal limits Afebrile. No evidence of leukocytosis on this admission. Comprehensive respiratory viral PCR panel negative on this admission. CT did not show any evidence of pulmonary embolism. Bilateral pleural effusions along with groundglass opacities right upper lobe greater than left. Right lower lobe airspace disease noted Interval update: No acute respiratory vents overnight. Continued remain on high flow 30% 40 L. Continues to diurese, net negative volume status. Improving BNP. Plan: Incentive spirometry Continue high flow nasal oxygen supplementation to maintain O2 saturation 90%, currently on 30 L 40%, continue to wean as tolerated Continue cefepime to complete
--- NOTE | 2023-02-20 09:46 | XR_ITS ---
FINAL REPORT CLINICAL HISTORY: Hypoxia COMPARISON: 02/16/2023 FINDINGS: The heart size is unchanged with mild cardiomegaly. The right upper lobe opacity noted on the prior chest x-ray has improved. The chronic changes seen in both lung inman are stable. There is no pneumothorax. IMPRESSION: Right upper lobe opacity noted on the prior chest x-ray has improved. The chronic changes in the lung inman bilaterally are stable. Mild cardiomegaly. Reviewed, Interpreted and Dictated by You Goldsmith MD Transcribed by Marilyn Hale Authenticated and [facility]
--- NOTE | 2023-02-20 10:58 | PC.NURSE ---
COURTESY TECH NOTE: ROUNDED ON PATIENT. REPOSITIONED PATIENT IN CHAIR. FRESH WATER PROVIDED. CALL LIGHT WITHIN REACH
--- NOTE | 2023-02-20 11:30 | PC.NURSE ---
Patient was 94% on vapotherm at 30L/40% titrated down to 30L/35%
[2023-02-21] VITALS (20 sets, daily range): BP systolic 106–158; BP diastolic 51–88; PULSE 60–93; RESP 20–24; TEMP 36.4–36.9; O2SAT 87–93; BMI 22.0
--- NOTE | 2023-02-21 00:02 | PC.NURSE ---
Patient stating at 87-89% on vapotherm at 30L/35% per respiratory staff patient was titrated back to 30L/40%
--- NOTE | 2023-02-21 05:43 | PC.NURSE ---
Patient has been stable this shift with no acute changes. Patients oxygen saturations have been 88-93% on vapotherm, attempts to titrate settings unsuccessful this shift. Current vapotherm setting is 30L/40%. Patient has rested well this shift, with no complaints. Lung sounds diminished throughout, BS active X4, no bm this shift. Bedside table, water, personal belongings and call hudson within reach. Continue POC and SD unit protocols.
--- NOTE | 2023-02-21 08:00 | PC.NURSE ---
COURTESY NOTE: pt provided with fresh ice water. pt had no further requests.
[2023-02-21 08:07] LABS: Basophils % 0.3 % (0.1-2.0); Eosinophils # 0.5 K/mm3 (0.0-0.4); Eosinophils % 5.5 % (0.1-12.0); Hemoglobin 11.9 g/dL (12.2-16.2); Lymphocytes # 0.9 K/mm3 (0.7-4.5); Lymphocytes % 9.7 % (10-50); Mean Corpuscular HGB Conc 30.6 g/dL (31.8-35.4); Mean Corpuscular Hemoglobin 28.8 pg (27.0-31.2); Mean Corpuscular Volume 94.3 fl (81-99); Mean Platelet Volume 8.5 fl (7.4-10.4); Monocytes # 0.6 K/mm3 (0.1-1.0); Monocytes % 7.1 % (1.7-9.3); Neutrophils # 6.9 K/mm3 (1.8-7.8); Neutrophils % 77.4 % (37.0-80.0); Platelet Count 275 K/mm3 (142-424); Red Blood Count 4.13 M/mm3 (4.20-5.40); Red Cell Distribution Width 14.3 % (11.5-17.5); White Blood Count 8.9 K/mm3 (4.8-10.8)
[2023-02-21 08:13] LABS: Chloride 91 mmol/L (98-107); Potassium 4.4 mmoL/L (3.5-5.1); Sodium 129 mmol/L (136-145)
[2023-02-21 08:16] LABS: Anion Gap 9.4 mEq/L (5-15); Blood Urea Nitrogen 19 mg/dl (7-17); Calcium 8.6 mg/dl (8.4-10.2); Carbon Dioxide 33 mmol/L (22.0-30.0); Creatinine Clearance Estimated 34 mL/min (50-200); Estimated Glomerular Filt Rate 68 ml/min (>60); GFR (African American) 83 ML/MIN (>60); Glucose 146 mg/dl (74-100); Magnesium 2.1 mg/dl (1.6-2.3)
--- NOTE | 2023-02-21 12:00 | PC.NURSE ---
COURTESY NOTE: pt provided with lunch tray. pt denied needing my assistance with any ADLs.
--- NOTE | 2023-02-21 14:16 | PC.NURSE ---
COURTESY NOTE: pt provided with fresh coffee. pt had no further requests.
--- NOTE | 2023-02-21 16:13 | EXP.ACUTE.PN ---
Subjective *Date: 02/21/23 *Time: 16:16 Interval history: Patient still requiring Vapotherm/high flow at 30 L 40% this morning. States she feels a little better this morning. Fluid neutral yesterday. No significant increase in diuresis. Labs this morning with improvement in potassium. No nausea or vomiting. Tolerating p.o. intake. Medical Exam Vital signs and Labs for Last 24 Hours: Vital Signs Temp Pulse Pulse Resp BP Pulse Ox O2 Del Method 02/21/23 15:25 98.1 F 02/21/23 12:00 80 02/21/23 12:00 83 24 139/70 90 L Vapotherm 02/21/23 10:00 81 22 118/78 92 L Vapotherm 02/21/23 13:00 Vapotherm 02/21/23 11:00 Vapotherm 02/21/23 08:00 70 02/21/23 11:15 75 02/21/23 11:15 76 02/21/23 11:15 88 L Vapotherm 02/21/23 11:08 98.1 F 02/21/23 09:00 Vapotherm 02/21/23 08:00 90 L Vapotherm 02/21/23 08:00 75 21 136/63 93 L Vapotherm 02/21/23 07:47 97.9 F 02/21/23 04:00 60 02/21/23 06:24 Vapotherm 02/21/23 06:00 66 20 139/71 90 L Vapotherm 02/21/23 05:15 72 02/21/23 05:15 74 02/21/23 05:15 89 L Vapotherm 02/21/23 04:00 97.6 F 02/21/23 04:00 66 20 108/71 L 92 L Vapotherm 02/21/23 04:00 92 L Vapotherm 02/21/23 03:00 Vapotherm 02/21/23 01:51 60 20 106/51 L 91 L Vapotherm 02/21/23 00:00 70 02/20/23 20:00 90 02/21/23 00:13 70 02/21/23 00:13 63 02/20/23 23:53 97.6 F 02/20/23 23:30 70 20 108/55 L 90 L Vapotherm 02/20/23 23:00 Vapotherm 02/20/23 18:20 89 02/20/23 18:20 89 02/20/23 18:20 90 L Vapotherm 02/20/23 20:00 90 L Vapotherm 02/20/23 22:00 87 24 144/76 H 90 L Vapotherm 02/20/23 21:00 Vapotherm 02/20/23 20:00 97.4 F L 02/20/23 18:08 Vapotherm 02/20/23 18:00 85 24 127/64 92 L Vapotherm 02/20/23 17:00 Vapotherm 02/20/23 16:49 97.9 F O2 Flow Rate FiO2 02/21/23 15:25 02/21/23 12:00 02/21/23 12:00 02/21/23 10:00 02/21/23 13:00 30 02/21/23 11:00 30 02/21/23 08:00 02/21/23 11:15 02/21/23 11:15 02/21/23 11:15 30 40 02/21/23 11:08 02/21/23 09:00 30 02/21/23 08:00 30 40 02/21/23 08:00 02/21/23 07:47 02/21/23 04:00 02/21/23 06:24 40 02/21/23 06:00 40 02/21/23 05:15 02/21/23 05:15 02/21/23 05:15 30 40 02/21/23 04:00 02/21/23 04:00 30 02/21/23 04:00 30 02/21/23 03:00 02/21/23 01:51 40 02/21/23 00:00 02/20/23 20:00 02/21/23 00:13 02/21/23 00:13 02/20/23 23:53 02/20/23 23:30 35 02/20/23 23:00 40 02/20/23 18:20 02/20/23 18:20 02/20/23 18:20 30 40 02/20/23 20:00 30 40 02/20/23 22:00 02/20/23 21:00 02/20/23 20:00 02/20/23 18:08 30 02/20/23 18:00 30 40 02/20/23 17:00 30 02/20/23 16:49 Intake and Output 02/21/23 02/21/23 02/21/23 07:59 15:59 23:59 Intake Total 840 / 1080 240 / 1080 Output Total 300 / 1100 800 / 1100 Balance 540 / -20 -560 / -20 Intake: Intake, Oral Amount 840 / 1080 240 / 1080 Output: Output, Urine Amount 300 / 1100 800 / 1100 Other: Number of Unmeasured Voids 0 0 Weight 50.938 kg Patient Weight 02/21/23 23:59 Weight 50.938 kg Laboratory Results - last 24 hr 02/21/23 07:14: WBC 8.9, RBC 4.13 L, Hgb 11.9 L, Hct 39.0, MCV 94.3, MCH 28.8, MCHC 30.6 L, RDW 14.3, Plt Count 275, MPV 8.5, Neut % (Auto) 77.4, Lymph % (Auto) 9.7 L, [place] % (Auto) 7.1, Eos % (Auto) 5.5, Baso % (Auto) 0.3, Neut # (Auto) 6.9, Lymph # (Auto) 0.9, [place] # (Auto) 0.6, Eos # (Auto) 0.5 H, Baso # (Auto) 0.0, Sodium 129 L, Potassium 4.4, Chloride 91 L, Carbon Dioxide 33 H, Anion Gap 9.4, BUN 19 H, Creatinine 0.80, Estimated Creat Clear 34, Estimated GFR 68, Est GFR ( Amer) 83, Glucose 146 H, Calcium 8.6, Magnesium 2.1 D I & O for Labs for Last 24
[2023-02-22] VITALS (17 sets, daily range): BP systolic 98–173; BP diastolic 48–80; PULSE 60–110; RESP 18–26; TEMP 36.3–36.9; O2SAT 91–97; BMI 22.6
[2023-02-22 07:27] LABS: Basophils % 0.5 % (0.1-2.0); Eosinophils # 0.5 K/mm3 (0.0-0.4); Hematocrit 39.1 % (37.0-47.0); Hemoglobin 11.8 g/dL (12.2-16.2); Lymphocytes # 0.8 K/mm3 (0.7-4.5); Lymphocytes % 10.6 % (10-50); Mean Corpuscular HGB Conc 30.3 g/dL (31.8-35.4); Mean Corpuscular Hemoglobin 28.6 pg (27.0-31.2); Mean Corpuscular Volume 94.5 fl (81-99); Mean Platelet Volume 8.1 fl (7.4-10.4); Monocytes # 0.5 K/mm3 (0.1-1.0); Monocytes % 6.9 % (1.7-9.3); Neutrophils # 5.5 K/mm3 (1.8-7.8); Platelet Count 304 K/mm3 (142-424); Red Blood Count 4.14 M/mm3 (4.20-5.40); Red Cell Distribution Width 14.3 % (11.5-17.5); White Blood Count 7.3 K/mm3 (4.8-10.8)
[2023-02-22 07:43] LABS: Alanine Aminotransferase 29 U/L (12-78); Alkaline Phosphatase 42 U/L (38-126); Aspartate Amino Transferase 26 U/L (14-36); Bilirubin,Total 0.6 mg/dl (0.2-1.3); Blood Urea Nitrogen 19 mg/dl (7-17); Calcium 8.6 mg/dl (8.4-10.2); Carbon Dioxide 34 mmol/L (22.0-30.0); Chloride 89 mmol/L (98-107); Creatinine Clearance Estimated 34 mL/min (50-200); Estimated Glomerular Filt Rate 68 ml/min (>60); GFR (African American) 83 ML/MIN (>60); Globulin 2.9 g/dL (1.3-3.2); Glucose 131 mg/dl (74-100); Sodium 128 mmol/L (136-145); Total Protein,Serum 5.9 g/dl (6.3-8.2)
--- NOTE | 2023-02-22 15:52 | EXP.ACUTE.PN ---
Subjective *Date: 02/22/23 *Time: 15:52 Interval history: Patient still requiring Vapotherm/high flow at increased to 40 L and 50% overnight. Feels stable. Denies any worsening shortness of breath. Has not diuresed well over the past 48 hours. Adjusting diuretic regimen today. Tolerating p.o. intake. No nausea or vomiting. Afebrile. Medical Exam Vital signs and Labs for Last 24 Hours: Vital Signs Temp Pulse Pulse Resp BP Pulse Ox O2 Del Method 02/22/23 15:20 98.3 F 74 23 150/59 H 92 L Vapotherm 02/22/23 12:00 70 02/22/23 14:53 Vapotherm 02/22/23 13:00 Vapotherm 02/22/23 12:00 66 24 121/80 97 Vapotherm 02/22/23 11:50 79 02/22/23 11:50 67 02/22/23 11:50 92 L Vapotherm 02/22/23 11:15 97.5 F L 02/22/23 08:00 80 02/22/23 10:42 Vapotherm 02/22/23 10:00 73 26 H 110/54 L 94 L Vapotherm 02/22/23 08:00 95 Vapotherm 02/22/23 09:00 Vapotherm 02/22/23 08:00 80 26 H 125/70 94 L Vapotherm 02/22/23 07:45 80 02/22/23 07:45 74 02/22/23 07:45 91 L Vapotherm 02/22/23 07:44 98.4 F 02/22/23 07:00 Vapotherm 02/21/23 20:00 93 H 125/68 87 L Vapotherm 02/21/23 22:00 81 130/57 L 89 L Vapotherm 02/22/23 00:00 75 98/48 L 92 L Vapotherm 02/22/23 02:00 74 123/62 95 Vapotherm 02/22/23 04:00 63 107/53 L 94 L Vapotherm 02/22/23 06:00 68 135/49 L 94 L Vapotherm 02/22/23 05:00 Vapotherm 02/22/23 04:00 60 02/22/23 00:00 60 02/21/23 20:00 80 02/22/23 04:00 Vapotherm 02/22/23 03:00 Vapotherm 02/22/23 04:00 97.6 F 02/22/23 01:00 Vapotherm 02/21/23 23:00 Vapotherm 02/21/23 21:00 Vapotherm 02/22/23 00:00 98.4 F 02/21/23 23:09 74 02/21/23 23:09 73 02/21/23 20:00 Vapotherm 02/21/23 20:00 98.5 F 02/21/23 18:00 80 22 158/69 H 89 L Vapotherm 02/21/23 18:13 Vapotherm 02/21/23 18:13 77 02/21/23 18:13 77 02/21/23 16:00 80 02/21/23 16:00 82 24 107/65 L 88 L Vapotherm 02/21/23 18:20 Vapotherm 02/21/23 17:00 Vapotherm O2 Flow Rate FiO2 02/22/23 15:20 02/22/23 12:00 02/22/23 14:53 40 02/22/23 13:00 02/22/23 12:00 02/22/23 11:50 02/22/23 11:50 02/22/23 11:50 40 50 02/22/23 11:15 02/22/23 08:00 02/22/23 10:42 02/22/23 10:00 02/22/23 08:00 02/22/23 09:00 02/22/23 08:00 02/22/23 07:45 02/22/23 07:45 02/22/23 07:45 40 50 02/22/23 07:44 02/22/23 07:00 02/21/23 20:00 02/21/23 22:00 02/22/23 00:00 02/22/23 02:00 02/22/23 04:00 02/22/23 06:00 02/22/23 05:00 02/22/23 04:00 02/22/23 00:00 02/21/23 20:00 02/22/23 04:00 40 50 02/22/23 03:00 02/22/23 04:00 02/22/23 01:00 02/21/23 23:00 02/21/23 21:00 02/22/23 00:00 02/21/23 23:09 02/21/23 23:09 02/21/23 20:00 30 40 02/21/23 20:00 02/21/23 18:00 02/21/23 18:13 30 40 02/21/23 18:13 02/21/23 18:13 02/21/23 16:00 02/21/23 16:00 02/21/23 18:20 30 02/21/23 17:00 30 Intake and Output 02/21/23 02/22/23 02/22/23 23:59 07:59 15:59 Intake Total 480 / 720 240 / 720 Output Total 0 / 1100 300 / 1200 900 / 1200 Balance 0 / 220 180 / -480 -660 / -480 Intake: Intake, Oral Amount 480 / 720 240 / 720 Output: Output, Urine Amount 0 / 1100 300 / 1200 900 / 1200 Other: Number of Unmeasured Voids 0 0 0 Weight 52.163 kg Patient Weight 02/22/23 23:59 Weight 52.163 kg Laboratory Results - last 24 hr 02/22/23 07:08: WBC 7.3, RBC 4.14 L, Hgb 11.8 L, Hct 39.1, MCV 94.5, MCH 28.6, MCHC 30.3 L, RDW 14.3, Plt Count 304, MPV 8.1, Neut % (Auto) 75.0, Lymph % (Auto) 10.6, Irwin % (Auto) 6.9, Eos % (Auto) 7.0, Baso % (Auto) 0.5, Neut # (Auto) 5.5, Lymph # (Auto) 0.8, Irwin # (Auto) 0.5, Eos # (Auto
--- NOTE | 2023-02-22 18:12 | PC.NURSE ---
Received report from MISAEL Mars around 1300. Pt has been up to chair and tolerated well. Pt still remains on vapotherm at 40% despite attempts to wean. Pt denies pain and offers no complaints at this time.
[2023-02-23] VITALS (16 sets, daily range): BP systolic 110–165; BP diastolic 52–69; PULSE 60–100; RESP 17–21; TEMP 36.4–37.1; O2SAT 92–99; BMI 21.8
--- NOTE | 2023-02-23 05:43 | PC.NURSE ---
uneventful night, pt rested well, no c/o verbalized. pt remains on 40%/50L. sats mid 90's. atrial fib on monitor.
[2023-02-23 06:42] LABS: Alanine Aminotransferase 24 U/L (12-78); Albumin Level 2.9 g/dl (3.5-5.0); Alkaline Phosphatase 57 U/L (38-126); Aspartate Amino Transferase 16 U/L (14-36); Bilirubin,Total 0.3 mg/dl (0.2-1.3); Calcium 8.7 mg/dl (8.4-10.2); Chloride 89 mmol/L (98-107); Globulin 2.9 g/dL (1.3-3.2); Glucose 129 mg/dl (74-100); Potassium 3.9 mmoL/L (3.5-5.1); Sodium 131 mmol/L (136-145); Total Protein,Serum 5.8 g/dl (6.3-8.2)
[2023-02-23 06:47] LABS: Blood Urea Nitrogen 20 mg/dl (7-17); Creatinine Clearance Estimated 33 mL/min (50-200); Estimated Glomerular Filt Rate 60 ml/min (>60); GFR (African American) 72 ML/MIN (>60)
[2023-02-23 06:49] LABS: Anion Gap 7.9 mEq/L (5-15); Carbon Dioxide 38 mmol/L (22.0-30.0)
--- NOTE | 2023-02-23 07:48 | PC.NURSE ---
Asked patient for sputum sample, patient states, okay but im not coughing anything up .
--- NOTE | 2023-02-23 09:07 | EXP.ACUTE.PN ---
Subjective *Date: 02/23/23 *Time: 12:01 Interval history: No acute events overnight. Stable on Vapotherm 40 L, 50%. Tolerating p.o. intake. Patient at baseline chronic appearance. Difficulty weaning over the weekend. Medical Exam Vital signs and Labs for Last 24 Hours: Vital Signs Temp Pulse Pulse Pulse Resp BP Pulse Ox 02/23/23 08:49 02/23/23 08:00 96 02/23/23 08:00 70 02/23/23 07:50 98.5 F 68 21 165/67 H 95 02/23/23 07:00 02/23/23 06:01 73 02/23/23 06:01 78 02/23/23 06:01 95 02/23/23 04:00 60 02/23/23 05:00 02/23/23 04:00 97.8 F 72 18 110/54 L 98 02/23/23 03:00 02/23/23 00:00 60 02/23/23 01:22 70 02/23/23 01:22 83 02/23/23 01:00 02/23/23 00:00 97.6 F 78 18 122/53 L 94 L 02/22/23 23:00 02/22/23 20:00 90 02/22/23 21:00 02/22/23 21:05 73 02/22/23 20:00 97.4 F L 110 H 18 173/77 H 96 02/22/23 18:57 02/22/23 18:57 66 02/22/23 18:56 81 02/22/23 18:51 02/22/23 17:00 02/22/23 16:00 70 02/22/23 15:20 98.3 F 74 23 150/59 H 92 L 02/22/23 12:00 70 02/22/23 14:53 02/22/23 13:00 02/22/23 12:00 66 24 121/80 97 02/22/23 11:50 79 02/22/23 11:50 67 02/22/23 11:50 92 L 02/22/23 11:15 97.5 F L 02/22/23 10:42 02/22/23 10:00 73 26 H 110/54 L 94 L O2 Del Method O2 Flow Rate FiO2 02/23/23 08:49 Vapotherm 02/23/23 08:00 Vapotherm 02/23/23 08:00 02/23/23 07:50 Vapotherm 02/23/23 07:00 Vapotherm 02/23/23 06:01 02/23/23 06:01 02/23/23 06:01 Vapotherm 50 02/23/23 04:00 02/23/23 05:00 Vapotherm 02/23/23 04:00 BiPAP 02/23/23 03:00 Vapotherm 02/23/23 00:00 02/23/23 01:22 02/23/23 01:22 02/23/23 01:00 Vapotherm 02/23/23 00:00 BiPAP 02/22/23 23:00 Vapotherm 02/22/23 20:00 02/22/23 21:00 Vapotherm 02/22/23 21:05 Vapotherm 40 50 02/22/23 20:00 BiPAP 02/22/23 18:57 Vapotherm 40 50 02/22/23 18:57 02/22/23 18:56 02/22/23 18:51 Vapotherm 02/22/23 17:00 Vapotherm 02/22/23 16:00 02/22/23 15:20 Vapotherm 02/22/23 12:00 02/22/23 14:53 Vapotherm 40 02/22/23 13:00 Vapotherm 02/22/23 12:00 Vapotherm 02/22/23 11:50 02/22/23 11:50 02/22/23 11:50 Vapotherm 40 50 02/22/23 11:15 02/22/23 10:42 Vapotherm 02/22/23 10:00 Vapotherm Intake and Output 02/22/23 02/23/23 02/23/23 23:59 07:59 15:59 Intake Total 240 / 1200 590 / 590 Output Total 300 / 1500 300 / 300 Balance -60 / -300 290 / 290 Intake: Intake, Oral Amount 240 / 1200 590 / 590 Output: Output, Urine Amount 300 / 1500 300 / 300 Other: Number of Unmeasured Voids 0 1 Weight 50.377 kg Patient Weight 02/23/23 23:59 Weight 50.377 kg Laboratory Results - last 24 hr 02/23/23 05:56: Sodium 131 L, Potassium 3.9 D, Chloride 89 L, Carbon Dioxide 38 H, Anion Gap 7.9, BUN 20 H, Creatinine 0.90, Estimated Creat Clear 33, Estimated GFR 60, Est GFR ( Amer) 72, Glucose 129 H, Calcium 8.7, Magnesium 2.0, Total Bilirubin 0.3, AST 16 D, ALT 24, Alkaline Phosphatase 57, Total Protein 5.8 L, Albumin 2.9 L, Globulin 2.9, Albumin/Globulin Ratio 1.0 L I & O for Labs for Last 24 Hours: Intake & Output 02/20/23 02/21/23 02/22/23 02/23/23 23:59 23:59 23:59 23:59 Intake Total 800 / 800 1320 / 1320 1200 / 1200 590 / 590 Output Total 1190 / 1190 1100 / 1100 1500 / 1500 300 / 300 Balance -390 / -390 220 / 220 -300 / -300 290 / 290 Weight 52.22 kg 50.938 kg 52.163 kg 50.377 kg Constitutional: Present mild distress, thin and chronically ill appearing Head: Present atraumatic and normocephalic ENT: Present normal exam Respiratory: Present prolonged expiratory phase, rhonchi and diminished air movement; Absent wheezes or crack
--- NOTE | 2023-02-23 10:04 | XR_ITS ---
FINAL REPORT TECHNIQUE: Single view chest CLINICAL HISTORY: Hypoxia COMPARISON: 02/20/2023 FINDINGS: A single view of the chest was obtained. The heart size is stable. There is enlargement of the main pulmonary vessel which is stable. There has been interval improvement in right perihilar and bibasilar opacities with likely small effusions. There is no pneumothorax. Osseous structures are unremarkable. IMPRESSION: Interval improvement of right perihilar and basilar opacities with small effusions. Reviewed, Interpreted and Dictated by Yumiko Fontenot MD Transcribed by Leighann Ocasio Authenticated and [facility]
--- NOTE | 2023-02-23 10:04 | EXP.PULM.PN ---
Subjective *Date: 02/23/23 *Time: 11:49 Interval history: No acute respiratory vents overnight. Patient denies any worsening respiratory symptoms. Pulmonology Exam Inpatient Vital signs and Labs for Last 24 Hours: Temp Pulse Resp BP Pulse Ox O2 Del Method O2 Flow Rate 98.5 F 70 21 165/67 H 96 Vapotherm 40 02/23/23 07:50 02/23/23 08:00 02/23/23 07:50 02/23/23 07:50 02/23/23 08:00 02/23/23 08:49 02/22/23 21:05 FiO2 50 02/23/23 06:01 Laboratory Results - last 24 hr 02/23/23 05:56: Sodium 131 L, Potassium 3.9 D, Chloride 89 L, Carbon Dioxide 38 H, Anion Gap 7.9, BUN 20 H, Creatinine 0.90, Estimated Creat Clear 33, Estimated GFR 60, Est GFR ( Amer) 72, Glucose 129 H, Calcium 8.7, Magnesium 2.0, Total Bilirubin 0.3, AST 16 D, ALT 24, Alkaline Phosphatase 57, Total Protein 5.8 L, Albumin 2.9 L, Globulin 2.9, Albumin/Globulin Ratio 1.0 L I & O for Labs for Last 24 Hours: Intake & Output 02/20/23 02/21/23 02/22/23 02/23/23 23:59 23:59 23:59 23:59 Intake Total 800 / 800 1320 / 1320 1200 / 1200 590 / 590 Output Total 1190 / 1190 1100 / 1100 1500 / 1500 300 / 300 Balance -390 / -390 220 / 220 -300 / -300 290 / 290 Weight 115 lb 2 oz 112 lb 4.8 oz 115 lb 111 lb 1 oz Microbiology Reports for the Last 24 Hours: Microbiology 02/17/23 12:00 Nose - Nasal MRSA Culture - Final Negative Constitutional: Present moderate distress Head: Present normocephalic and atraumatic ENT: Present normal exam, normal oropharynx and mucous membranes moist Neck: Present normal inspection and full ROM Respiratory: Present respiratory distress, wheezes and diminished air movement; Absent able to speak in complete sentences Cardiac: Present S1/S2, Tachycardia and radial pulses present GI: Present soft and distention; Absent tenderness or guarding Rectal (female): Present deferred (female): Present deferred Skin: Present intact; Absent cyanosis or jaundice Neuro: Present alert, awake and oriented x 3 Extremities: Present normal inspection; Absent edema, clubbing or cyanosis Psychiatric: Present normal affect and cooperative Assessment and Plan *Assessment and plan (1) Acute respiratory failure with hypoxia: Status: Acute Category: Medical Code(s): J96.01 - Acute respiratory failure with hypoxia (2) Pneumonia: Status: Acute Qualifiers: Laterality: right Lung location: upper lobe of lung Pneumonia type: due to unspecified organism Qualified Code(s): J18.9 - Pneumonia, unspecified organism Category: Medical Code(s): J18.9 - Pneumonia, unspecified organism Plan Ms. Del Real is a 82-year-old female COPD on long-term oxygen therapy at 2 to 3 L presented from nursing with worsening respiratory distress. Chest x-ray upon admission, right upper and lower lobe airspace disease. Patient has multiple admissions recently with no significant infiltrates. She on her recent admissions treated with doxycycline and cefdinir. most recent admission procalcitonin within normal limits Afebrile. No evidence of leukocytosis on this admission. Comprehensive respiratory viral PCR panel negative on this admission. CT did not show any evidence of pulmonary embolism. Bilateral pleural effusions along with groundglass opacities right upper lobe greater than left. Right lower lobe airspace disease noted Interval update: No acute respiratory vents overnight. Stable oxygen requirements. Plan: Incentive spirometry flutter valve High flow nasal cannula weaned to 20 L 20%. We will continue to wean as tolerated nasal cannula but recommend changing pulse oximetry for better oxygen saturation values Continue cefepime to complete a total of 7-day course Continue DuoNebs every 6 hours scheduled Thank you for involving pulmonary in this patient care. We will continue to follow.
--- NOTE | 2023-02-23 11:06 | DIET.NUTRFU ---
RD reviewed chart, her meal intake has improved up to 75% today. She is not noted to have BM since 02/19, nursing had reported BM on 02/22, she will confirm. Provider started BM regimen
--- NOTE | 2023-02-23 17:26 | PC.NURSE ---
patient sitting up in bed eating dinner.
[2023-02-24] VITALS (15 sets, daily range): BP systolic 114–152; BP diastolic 62–84; PULSE 54–88; RESP 16–22; TEMP 36.3–36.7; O2SAT 93–97; BMI 21.6
[2023-02-24 07:08] LABS: Basophils % 0.3 % (0.1-2.0); Eosinophils # 0.6 K/mm3 (0.0-0.4); Eosinophils % 7.6 % (0.1-12.0); Hematocrit 35.9 % (37.0-47.0); Hemoglobin 11.3 g/dL (12.2-16.2); Lymphocytes # 1.1 K/mm3 (0.7-4.5); Lymphocytes % 15.2 % (10-50); Mean Corpuscular HGB Conc 31.5 g/dL (31.8-35.4); Mean Corpuscular Hemoglobin 29.2 pg (27.0-31.2); Mean Corpuscular Volume 92.6 fl (81-99); Mean Platelet Volume 8.6 fl (7.4-10.4); Monocytes # 0.8 K/mm3 (0.1-1.0); Monocytes % 10.2 % (1.7-9.3); Neutrophils % 66.7 % (37.0-80.0); Platelet Count 327 K/mm3 (142-424); Red Blood Count 3.88 M/mm3 (4.20-5.40); Red Cell Distribution Width 14.2 % (11.5-17.5); White Blood Count 7.5 K/mm3 (4.8-10.8)
[2023-02-24 07:17] LABS: Alanine Aminotransferase 22 U/L (12-78); Albumin Level 3.1 g/dl (3.5-5.0); Alkaline Phosphatase 59 U/L (38-126); Anion Gap 7.3 mEq/L (5-15); Aspartate Amino Transferase 19 U/L (14-36); Bilirubin,Total 0.3 mg/dl (0.2-1.3); Blood Urea Nitrogen 23 mg/dl (7-17); Calcium 8.7 mg/dl (8.4-10.2); Carbon Dioxide 38 mmol/L (22.0-30.0); Chloride 91 mmol/L (98-107); Creatinine Clearance Estimated 33 mL/min (50-200); Estimated Glomerular Filt Rate 68 ml/min (>60); GFR (African American) 83 ML/MIN (>60); Globulin 3.1 g/dL (1.3-3.2); Glucose 143 mg/dl (74-100); Potassium 4.3 mmoL/L (3.5-5.1); Sodium 132 mmol/L (136-145); Total Protein,Serum 6.2 g/dl (6.3-8.2)
--- NOTE | 2023-02-24 09:18 | EXP.PULM.PN ---
Subjective *Date: 02/24/23 *Time: 10:04 Interval history: No acute respiratory vents overnight. Pulmonology Exam Inpatient Vital signs and Labs for Last 24 Hours: Temp Pulse Resp BP Pulse Ox O2 Del Method O2 Flow Rate 97.6 F 61 16 146/62 H 94 L Nasal Cannula 4 02/24/23 07:41 02/24/23 07:41 02/24/23 07:41 02/24/23 07:41 02/24/23 07:42 02/24/23 08:52 02/24/23 08:52 FiO2 50 02/23/23 06:01 Laboratory Results - last 24 hr 02/24/23 06:05: WBC 7.5, RBC 3.88 L, Hgb 11.3 L, Hct 35.9 L, MCV 92.6, MCH 29.2, MCHC 31.5 L, RDW 14.2, Plt Count 327, MPV 8.6, Neut % (Auto) 66.7, Lymph % (Auto) 15.2, [place] % (Auto) 10.2 H, Eos % (Auto) 7.6, Baso % (Auto) 0.3, Neut # (Auto) 5.0, Lymph # (Auto) 1.1, [place] # (Auto) 0.8, Eos # (Auto) 0.6 H, Baso # (Auto) 0.0, Sodium 132 L, Potassium 4.3, Chloride 91 L, Carbon Dioxide 38 H, Anion Gap 7.3, BUN 23 H, Creatinine 0.80, Estimated Creat Clear 33, Estimated GFR 68, Est GFR ( Amer) 83, Glucose 143 H, Calcium 8.7, Total Bilirubin 0.3, AST 19, ALT 22, Alkaline Phosphatase 59, Total Protein 6.2 L, Albumin 3.1 L, Globulin 3.1, Albumin/Globulin Ratio 1.0 L I & O for Labs for Last 24 Hours: Intake & Output 02/21/23 02/22/23 02/23/23 02/24/23 23:59 23:59 23:59 23:59 Intake Total 1320 / 1320 1200 / 1200 1070 / 1070 180 / 180 Output Total 1100 / 1100 1500 / 1500 750 / 750 0 / 0 Balance 220 / 220 -300 / -300 320 / 320 180 / 180 Weight 112 lb 4.8 oz 115 lb 111 lb 1 oz 110 lb Microbiology Reports for the Last 24 Hours: Microbiology 02/17/23 12:00 Nose - Nasal MRSA Culture - Final Negative Constitutional: Present moderate distress Head: Present normocephalic and atraumatic ENT: Present normal exam, normal oropharynx and mucous membranes moist Neck: Present normal inspection and full ROM Respiratory: Present respiratory distress, wheezes and diminished air movement; Absent able to speak in complete sentences Cardiac: Present S1/S2, Tachycardia and radial pulses present GI: Present soft and distention; Absent tenderness or guarding Rectal (female): Present deferred (female): Present deferred Skin: Present intact; Absent cyanosis or jaundice Neuro: Present alert, awake and oriented x 3 Extremities: Present normal inspection; Absent edema, clubbing or cyanosis Psychiatric: Present normal affect and cooperative Assessment and Plan *Assessment and plan (1) Acute respiratory failure with hypoxia: Status: Acute Category: Medical Code(s): J96.01 - Acute respiratory failure with hypoxia (2) Pneumonia: Status: Acute Qualifiers: Laterality: right Lung location: upper lobe of lung Pneumonia type: due to unspecified organism Qualified Code(s): J18.9 - Pneumonia, unspecified organism Category: Medical Code(s): J18.9 - Pneumonia, unspecified organism Plan Ms. Del Real is a 82-year-old female COPD on long-term oxygen therapy at 2 to 3 L presented from nursing with worsening respiratory distress. Chest x-ray upon admission, right upper and lower lobe airspace disease. Patient has multiple admissions recently with no significant infiltrates. She on her recent admissions treated with doxycycline and cefdinir. most recent admission procalcitonin within normal limits Afebrile. No evidence of leukocytosis on this admission. Comprehensive respiratory viral PCR panel negative on this admission. CT did not show any evidence of pulmonary embolism. Bilateral pleural effusions along with groundglass opacities right upper lobe greater than left. Right lower lobe airspace disease noted Interval update: No acute respiratory vents overnight. Stable oxygen requirements, weaned to nasal cannula, remained stable on 4 L. Completed 7-day course of cefepime. Continue to receive diuretics. It appears that patient current admission is predominantly from volume overload Plan: Incentive spirometry flutter valve Continue nasal cannula ox
[2023-02-24 10:54] LABS: Magnesium 2.1 mg/dl (1.6-2.3)
--- NOTE | 2023-02-24 14:46 | EXP.PN ---
Subjective *Date: 02/24/23 *Time: 14:46 Interval history: The patient is seen and examined today. I am accompanied by nursing staff. They report that she remains afebrile with stable vital signs. She has been off Vapotherm for greater than 24 hours with oxygen saturations greater than 90% on supplemental oxygen via nasal cannula. She is no longer receiving Seroquel therapy nightly. Her morning labs identify sodium 132 with normal creatinine and glucose trend under 150. Her blood cultures continue to identify no growth to date and her MRSA screen is negative. Her chest x-ray has identified improved basilar opacities. Her morning CBC identifies a white blood cell count of 7.5 with stable hemoglobin and normal platelets. She is inquiring about transition to [facility] facility. Case management is assisting with transition of care to [facility] and pre-CERT is pending. Exam Data for Last 24 hours Vital signs and Labs for Last 24 Hours: Temp Pulse Resp BP Pulse Ox O2 Del Method O2 Flow Rate 97.5 F L 78 16 142/72 H 95 Nasal Cannula 4 02/24/23 11:11 02/24/23 12:00 02/24/23 11:11 02/24/23 11:11 02/24/23 11:11 02/24/23 14:32 02/24/23 14:32 FiO2 50 02/23/23 06:01 Laboratory Results - last 24 hr 02/24/23 06:05: WBC 7.5, RBC 3.88 L, Hgb 11.3 L, Hct 35.9 L, MCV 92.6, MCH 29.2, MCHC 31.5 L, RDW 14.2, Plt Count 327, MPV 8.6, Neut % (Auto) 66.7, Lymph % (Auto) 15.2, [place] % (Auto) 10.2 H, Eos % (Auto) 7.6, Baso % (Auto) 0.3, Neut # (Auto) 5.0, Lymph # (Auto) 1.1, [place] # (Auto) 0.8, Eos # (Auto) 0.6 H, Baso # (Auto) 0.0, Sodium 132 L, Potassium 4.3, Chloride 91 L, Carbon Dioxide 38 H, Anion Gap 7.3, BUN 23 H, Creatinine 0.80, Estimated Creat Clear 33, Estimated GFR 68, Est GFR ( Amer) 83, Glucose 143 H, Calcium 8.7, Magnesium 2.1, Total Bilirubin 0.3, AST 19, ALT 22, Alkaline Phosphatase 59, Total Protein 6.2 L, Albumin 3.1 L, Globulin 3.1, Albumin/Globulin Ratio 1.0 L I & O for Last 24 hours: Intake & Output 02/21/23 02/22/23 02/23/23 02/24/23 23:59 23:59 23:59 23:59 Intake Total 1320 / 1320 1200 / 1200 1070 / 1070 450 / 450 Output Total 1100 / 1100 1500 / 1500 750 / 750 450 / 450 Balance 220 / 220 -300 / -300 320 / 320 0 / 0 Weight 50.938 kg 52.163 kg 50.377 kg 49.895 kg Constitutional Constitutional: no acute distress and cooperative *Routine HEENT Exam Head: Present normocephalic Eye: Present EOMI and PERRL ENT: Present mucous membranes moist *Routine Neck Exam Neck: Present supple and trachea midline; Absent lymphadenopathy *Routine Respiratory Exam Respiratory: Present rhonchi, normal respiratory effort and symmetric chest movement Comments: Significant thoracic kyphosis *Routine Cardiovascular Exam Cardiovascular: Present RRR, Normal S1 and Normal S2 *Routine Abdominal Exam Abdominal: Present soft and normoactive bowel sounds; Absent tenderness *Routine Extremities Exam Extremities: Present full ROM and normal capillary refill; Absent edema Routine Back/Spine/Pelvis Exam Back/Spine: Present kyphosis *Routine Skin Exam Skin: Present warm; Absent rash *Routine Neurological Exam Neurological: Present alert, oriented X3, moving all extremities, vision grossly intact and normal speech; Absent sensory deficit or motor deficit Routine Psychiatric Exam Psychiatric: Present normal affect, normal thought process, cooperative, good insight and good judgment Assessment and Plan *Assessment and plan (1) Acute and chronic respiratory failure: Status: Acute Qualifiers: Respiratory failure complication: hypoxia Qualified Code(s): J96.21 - Acute and chronic respiratory failure with hypoxia Category: Medical Code(s): J96.20 - Acute and chronic respiratory failure, unspecified whether with hypoxia or hypercapnia (2) CHF exacerbation: Status: Acute Qualifiers: Heart failure type: diastolic Qualified Code(s): I50.33 - Acute on chronic diastolic (conges
--- NOTE | 2023-02-24 15:20 | PC.NURSE ---
Addendum entered by Aman Martinez RN 02/24/23 17:21: oxygen decreased to 3 l Original Note: PT IS SITTING UP IN THE CHAIR. ALERT AND ORIENTED X3. EATING AND DRINKING WELL. NEW IV ACCESS NOTED TO THE RFA. LUNG SOUNDS DIMINISHED WITH SCATTERED WHEEZING. ABDOMEN SOFT/NON TENDER WITH ACTIVE BOWEL SOUNDS. PT GETS UP TO THE BSC WITH 1 ASSIST. NO SWELLING NOTED TO BLE. SCATTERED BRUISING NOTED TO BUE. O2 SATURATION HAS MAINTAINED 92-95% ON 4 L NC. VSS. WILL CONTINUE TO MONITOR.
[2023-02-25] VITALS (15 sets, daily range): BP systolic 117–139; BP diastolic 45–73; PULSE 50–88; RESP 20–30; TEMP 36.4–36.6; O2SAT 3–95; BMI 21.6
--- NOTE | 2023-02-25 04:25 | PC.NURSE ---
No acute chasnges this shift. Pt weaned to 3L NC, saturated well. Pt has used BSC with 1-2 assist and tolerated well. Pt has had no complaints.
--- NOTE | 2023-02-25 09:55 | PC.NURSE ---
Notified Dr Alvarez during rounds that patient's IV infiltrated and she hasn't received her IV lasix yet due to that. OK to to leave IV out at this time as patient may dc today pending insurance precert, and witch lasix to 2mg bumex po daily.
--- NOTE | 2023-02-25 12:21 | EXP.PULM.PN ---
Subjective *Date: 02/25/23 *Time: 12:21 Interval history: No acute respiratory events overnight. Denies any new respiratory complaints. Pulmonology Exam Inpatient Vital signs and Labs for Last 24 Hours: Temp Pulse Resp BP Pulse Ox O2 Del Method O2 Flow Rate 97.9 F 67 20 129/45 L 93 L Nasal Cannula 3 02/25/23 11:18 02/25/23 11:18 02/25/23 11:18 02/25/23 11:18 02/25/23 11:18 02/25/23 11:18 02/25/23 11:18 FiO2 50 02/23/23 06:01 I & O for Labs for Last 24 Hours: Intake & Output 02/22/23 02/23/23 02/24/23 02/25/23 23:59 23:59 23:59 23:59 Intake Total 1200 / 1200 1070 / 1070 690 / 690 480 / 480 Output Total 1500 / 1500 750 / 750 950 / 950 0 / 0 Balance -300 / -300 320 / 320 -260 / -260 480 / 480 Weight 115 lb 111 lb 1 oz 110 lb 110 lb 3 oz Microbiology Reports for the Last 24 Hours: Microbiology 02/17/23 12:00 Nose - Nasal MRSA Culture - Final Negative Constitutional: Present moderate distress Head: Present normocephalic and atraumatic ENT: Present normal exam, normal oropharynx and mucous membranes moist Neck: Present normal inspection and full ROM Respiratory: Present respiratory distress and able to speak in complete sentences; Absent wheezes or diminished air movement Cardiac: Present S1/S2, Tachycardia and radial pulses present GI: Present soft and distention; Absent tenderness or guarding Rectal (female): Present deferred (female): Present deferred Skin: Present intact; Absent cyanosis or jaundice Neuro: Present alert, awake and oriented x 3 Extremities: Present normal inspection; Absent edema, clubbing or cyanosis Psychiatric: Present normal affect and cooperative Assessment and Plan *Assessment and plan (1) Acute respiratory failure with hypoxia: Status: Acute Category: Medical Code(s): J96.01 - Acute respiratory failure with hypoxia (2) Pneumonia: Status: Acute Qualifiers: Pneumonia type: due to unspecified organism Laterality: right Lung location: upper lobe of lung Qualified Code(s): J18.9 - Pneumonia, unspecified organism Category: Medical Code(s): J18.9 - Pneumonia, unspecified organism Plan Ms. Del Real is a 82-year-old female COPD on long-term oxygen therapy at 2 to 3 L presented from nursing with worsening respiratory distress. Chest x-ray upon admission, right upper and lower lobe airspace disease. Patient has multiple admissions recently with no significant infiltrates. She on her recent admissions treated with doxycycline and cefdinir. most recent admission procalcitonin within normal limits Afebrile. No evidence of leukocytosis on this admission. Comprehensive respiratory viral PCR panel negative on this admission. CT did not show any evidence of pulmonary embolism. Bilateral pleural effusions along with groundglass opacities right upper lobe greater than left. Right lower lobe airspace disease noted Interval update: No acute respiratory vents overnight. Stable oxygen requirements, weaned to nasal cannula, remained stable on 4 L. Completed 7-day course of cefepime. Continue to receive diuretics. It appears that patient current admission is predominantly from volume overload Plan: Incentive spirometry flutter valve Continue nasal cannula oxygen supplementation to maintain O2 saturation below 90% and above, currently on 4 L saturating 92% unable Continue DuoNebs every 8 hours. Volume optimization as per primary team and cardiology Thank you for involving pulmonary in this patient care. We will follow the patient in pulmonary clinic in 4 to 6 weeks
--- NOTE | 2023-02-25 15:12 | EXP.PN ---
Subjective *Date: 02/25/23 *Time: 15:12 Interval history: The patient is seen and examined today. Nursing staff report that she remains afebrile with stable vital signs and saturating appropriately on room air. She is inquiring about transition of care. Case management is assisting with transition to [place] and insurance certification process is pending. Exam Data for Last 24 hours Vital signs and Labs for Last 24 Hours: Temp Pulse Resp BP Pulse Ox O2 Del Method O2 Flow Rate 97.9 F 72 20 129/45 L 94 L Nasal Cannula 3 02/25/23 11:18 02/25/23 15:05 02/25/23 11:18 02/25/23 11:18 02/25/23 15:05 02/25/23 15:05 02/25/23 15:05 FiO2 50 02/23/23 06:01 I & O for Last 24 hours: Intake & Output 02/22/23 02/23/23 02/24/23 02/25/23 23:59 23:59 23:59 23:59 Intake Total 1200 / 1200 1070 / 1070 690 / 690 950 / 950 Output Total 1500 / 1500 750 / 750 950 / 950 0 / 0 Balance -300 / -300 320 / 320 -260 / -260 950 / 950 Weight 52.163 kg 50.377 kg 49.895 kg 49.98 kg Constitutional Constitutional: no acute distress and cooperative *Routine HEENT Exam Head: Present normocephalic Eye: Present EOMI and PERRL ENT: Present mucous membranes moist *Routine Neck Exam Neck: Present supple and trachea midline; Absent lymphadenopathy *Routine Respiratory Exam Respiratory: Present rhonchi, normal respiratory effort and symmetric chest movement Comments: Significant thoracic kyphosis *Routine Cardiovascular Exam Cardiovascular: Present RRR, Normal S1 and Normal S2 *Routine Abdominal Exam Abdominal: Present soft and normoactive bowel sounds; Absent tenderness *Routine Extremities Exam Extremities: Present full ROM and normal capillary refill; Absent edema Routine Back/Spine/Pelvis Exam Back/Spine: Present kyphosis *Routine Skin Exam Skin: Present warm; Absent rash *Routine Neurological Exam Neurological: Present alert, oriented X3, moving all extremities, vision grossly intact and normal speech; Absent sensory deficit or motor deficit Routine Psychiatric Exam Psychiatric: Present normal affect, normal thought process, cooperative, good insight and good judgment Assessment and Plan *Assessment and plan (1) Acute and chronic respiratory failure: Status: Acute Qualifiers: Respiratory failure complication: hypoxia Qualified Code(s): J96.21 - Acute and chronic respiratory failure with hypoxia Category: Medical Code(s): J96.20 - Acute and chronic respiratory failure, unspecified whether with hypoxia or hypercapnia (2) CHF exacerbation: Status: Acute Qualifiers: Heart failure type: diastolic Qualified Code(s): I50.33 - Acute on chronic diastolic (congestive) heart failure Category: Medical Code(s): I50.9 - Heart failure, unspecified (3) Pneumonia: Status: Acute Qualifiers: Pneumonia type: due to unspecified organism Laterality: right Lung location: upper lobe of lung Qualified Code(s): J18.9 - Pneumonia, unspecified organism Category: Medical Code(s): J18.9 - Pneumonia, unspecified organism (4) Acute exacerbation of chronic obstructive pulmonary disease: Status: Acute Category: Medical Code(s): J44.1 - Chronic obstructive pulmonary disease with (acute) exacerbation (5) Hyponatremia: Status: Acute Category: Medical Code(s): E87.1 - Hypo-osmolality and hyponatremia (6) Diabetes mellitus type 2 in nonobese: Status: Acute Category: Medical Code(s): E11.9 - Type 2 diabetes mellitus without complications (7) HTN (hypertension): Status: Acute Qualifiers: Hypertension type: unspecified Qualified Code(s): I10 - Essential (primary) hypertension Category: Medical Code(s): I10 - Essential (primary) hypertension (8) HLD (hyperlipidemia): Status: Acute Qualifiers: Hyperlipidemia type: mixed hyperlipidemia Qualifie
--- NOTE | 2023-02-25 15:42 | PC.NURSE ---
Pt is alert and oriented x3. She remains on 3L NC with O2 sats measuring >90%. She's been up to the chair and tolerating well. She's been NSR/1st degree block on telemetry with some PAC's noted. She had a bm this shift. Tylenol administered once for pt report of eye pain with relief noted on reassessment. She denies any questions or concerns at this time. Call light is within reach.
--- NOTE | 2023-02-25 16:01 | PC.NURSE ---
pt ambulated around room multiple times with stand by assist
[2023-02-26] VITALS: BP 136/62; PULSE 57; PULSE 60; RESP 20; TEMP 36.6; O2SAT 92
[2023-02-26 04:00] VITALS: BP 127/68; PULSE 65; PULSE 70; RESP 18; TEMP 36.5; O2SAT 90; BMI 21.6
[2023-02-26 06:00] VITALS: PULSE 54; O2SAT 96
[2023-02-26 07:58] VITALS: BP 126/52; PULSE 72; RESP 23; TEMP 36.6; O2SAT 95
--- NOTE | 2023-02-26 09:07 | EXP.PULM.PN ---
Subjective *Date: 02/26/23 *Time: 11:19 Interval history: No acute respiratory vents overnight. Denies any new complaints. Awaiting placement. Pulmonology Exam Inpatient Vital signs and Labs for Last 24 Hours: Temp Pulse Resp BP Pulse Ox O2 Del Method O2 Flow Rate 97.9 F 72 23 126/52 L 95 Nasal Cannula 3 02/26/23 07:58 02/26/23 07:58 02/26/23 07:58 02/26/23 07:58 02/26/23 07:58 02/26/23 07:58 02/26/23 07:58 FiO2 50 02/23/23 06:01 I & O for Labs for Last 24 Hours: Intake & Output 02/23/23 02/24/23 02/25/23 02/26/23 23:59 23:59 23:59 23:59 Intake Total 1070 / 1070 690 / 690 1190 / 1190 480 / 480 Output Total 750 / 750 950 / 950 0 / 0 0 / 0 Balance 320 / 320 -260 / -260 1190 / 1190 480 / 480 Weight 111 lb 1 oz 110 lb 110 lb 3 oz 110 lb 2.287 oz Microbiology Reports for the Last 24 Hours: Microbiology 02/17/23 12:00 Nose - Nasal MRSA Culture - Final Negative Constitutional: Present moderate distress Head: Present normocephalic and atraumatic ENT: Present normal exam, normal oropharynx and mucous membranes moist Neck: Present normal inspection and full ROM Respiratory: Present respiratory distress and able to speak in complete sentences; Absent wheezes or diminished air movement Cardiac: Present S1/S2, Tachycardia and radial pulses present GI: Present soft and distention; Absent tenderness or guarding Rectal (female): Present deferred (female): Present deferred Skin: Present intact; Absent cyanosis or jaundice Neuro: Present alert, awake and oriented x 3 Extremities: Present normal inspection; Absent edema, clubbing or cyanosis Psychiatric: Present normal affect and cooperative Assessment and Plan *Assessment and plan (1) Acute respiratory failure with hypoxia: Status: Acute Category: Medical Code(s): J96.01 - Acute respiratory failure with hypoxia (2) Pneumonia: Status: Acute Qualifiers: Laterality: right Lung location: upper lobe of lung Pneumonia type: due to unspecified organism Qualified Code(s): J18.9 - Pneumonia, unspecified organism Category: Medical Code(s): J18.9 - Pneumonia, unspecified organism Plan Ms. Del Real is a 82-year-old female COPD on long-term oxygen therapy at 2 to 3 L presented from nursing with worsening respiratory distress. Chest x-ray upon admission, right upper and lower lobe airspace disease. Patient has multiple admissions recently with no significant infiltrates. She on her recent admissions treated with doxycycline and cefdinir. most recent admission procalcitonin within normal limits Afebrile. No evidence of leukocytosis on this admission. Comprehensive respiratory viral PCR panel negative on this admission. CT did not show any evidence of pulmonary embolism. Bilateral pleural effusions along with groundglass opacities right upper lobe greater than left. Right lower lobe airspace disease noted. Completed 7-day course of cefepime. Continue to receive diuretics. It appears that patient current admission is predominantly from volume overload Interval update: No acute respiratory vents overnight but stable oxygen requirements. Currently awaiting placement. Plan: Incentive spirometry flutter valve Continue nasal cannula oxygen supplementation to maintain O2 saturation below 90% and above, currently on 4 L saturating 92% unable Continue DuoNebs every 8 hours. Volume optimization as per primary team and cardiology Thank you for involving pulmonary in this patient care. We will follow the patient in pulmonary clinic in 4 to 6 weeks
--- NOTE | 2023-02-26 11:22 | EXP.DC.SUM ---
General Admission date:: 02/16/23 Discharge date: 02/26/23 HPI HPI HPI: Ms. Mckenzie is an 85-year-old female with past medical history of COPD, hyperlipidemia, hypertension, diabetes, hypothyroid. Chronically on 3 to 4 L nasal cannula oxygen. She has had multiple hospital visits over the past month and a half for acute dyspnea and hypoxia. Previous COPD exacerbations showed rapid resolution with nebulizer treatment and return to baseline oxygen. Has completed multiple courses of antibiotics and steroids over the past several visits. Was discharged last visit from [facility] to [facility] for rehab. She presents today to the ER via EMS with oxygen saturation of 70% on her baseline O2. She was escalated to a nonrebreather with improvement in her O2 sats above 90. Chest imaging in the ER concerning for possible increase in right-sided airspace disease/opacification. White cell count normal at 10 with neutrophil predominance. Kidney function and electrolytes at baseline with persistent hyponatremia. Attempts to wean patient to home oxygen have been unsuccessful in the ER. Received triple dose DuoNebs with no significant improvement. Medicine was consulted for admission after inability to wean patient to baseline oxygen. Hospital Course Hospital Course Hospital Course: The patient was admitted to the telemetry unit with pulmonology consultation. Imaging, labs and inflammatory markers were trended. She required increasing oxygen requirements during the early part of her admission that eventually diminished to her baseline home oxygen of 3 L. She received IV antibiotic therapy and her cultures were trended. She completed a course of inpatient IV antibiotic therapy. Her hyponatremia improved throughout her hospitalization. Identified improvement was noted and the patient inquired about transition of care. PT and OT evaluations were requested. Case management assisted with transition of care to [facility]. I spent 35 minutes in [id number] time with the patient, case management and nursing staff concerning the discharge process. We discussed the admitting diagnoses and hospital course. We discussed identified improvement and the patient's desire to transition her care to retirement facility. We reviewed inpatient studies and imaging. The patient voiced understanding on the importance of follow-up with her primary care provider and imaging science professor. The patient plans to be compliant with the medication regimen prescribed and follow-up appointments. Her care will be transition to [facility].. Exam Data for Last 24 hours Vital signs and Labs for Last 24 Hours: Temp Pulse Resp BP Pulse Ox O2 Del Method O2 Flow Rate 97.9 F 72 23 126/52 L 95 Nasal Cannula 3 02/26/23 07:58 02/26/23 07:58 02/26/23 07:58 02/26/23 07:58 02/26/23 07:58 02/26/23 07:58 02/26/23 07:58 FiO2 50 02/23/23 06:01 I & O for Last 24 hours: Intake & Output 02/23/23 02/24/23 02/25/23 02/26/23 23:59 23:59 23:59 23:59 Intake Total 1070 / 1070 690 / 690 1190 / 1190 600 / 600 Output Total 750 / 750 950 / 950 0 / 0 0 / 0 Balance 320 / 320 -260 / -260 1190 / 1190 600 / 600 Weight 50.377 kg 49.895 kg 49.98 kg 49.96 kg Constitutional Constitutional: no acute distress and cooperative *Routine HEENT Exam Head: Present normocephalic Eye: Present EOMI and PERRL ENT: Present mucous membranes moist *Routine Neck Exam Neck: Present supple and trachea midline; Absent lymphadenopathy *Routine Respiratory Exam Respiratory: Present rhonchi, normal respiratory effort and symmetric chest movement Comments: Significant thoracic kyphosis *Routine Cardiovascular Exam Cardiovascular: Present RRR, Normal S1 and Normal S2 *Routine Abdominal Exam Abdominal: Present soft and normoactive bowel sounds; Absent tenderness *Routine Extremities Exam Extremities: Present full ROM and normal capillary refill; Absent edema
[2023-02-26 11:43] VITALS: BP 131/67; PULSE 69; RESP 18; TEMP 36.6; O2SAT 91
[2023-02-26 12:55] VITALS: PULSE 71; PULSE 75; O2SAT 90
== END 2023-02-26 13:54 | DRG 193 ==
LOC: ER 11:08 → 2ND 15:34
PROVIDERS: Internal Medicine Pulmonary Disease; Admitting Provider Internal Medicine Adolescent Medicine; Emergency Provider Emergency Medicine; PCP Family Medicine; Visit Provider Internal Medicine Adolescent Medicine
DX: J18.9 Pneumonia, unspecified organism (principal); I50.33 Acute on chronic diastolic (congestive) heart failure; J96.21 Acute and chronic respiratory failure with hypoxia; J96.22 Acute and chronic respiratory failure with hypercapnia; E87.1 Hypo-osmolality and hyponatremia; I11.0 Hypertensive heart disease with heart failure; J43.9 Emphysema, unspecified; E78.2 Mixed hyperlipidemia; E03.9 Hypothyroidism, unspecified; Z99.81 Dependence on supplemental oxygen; F41.9 Anxiety disorder, unspecified
CPT/HCPCS: 36415; 71045; 71275; 80048; 80053; 82803; 83605; 83735; 83880; 84145; 84484; 85007; 85025; 87040; 87081; 87581; 87632; 87636; 87798; 93005; 93306; 94640; 94667; 94760; 94761; 97110; 97163; 97166; 97530; 97535; 99285; J0456; J0696; J1956; J2405; Q9967

== ENCOUNTER → 2023-04-27 11:31 | Outpatient (CLI) | payer MEDICARE, SELFPAY ==
[2023-04-27 12:56] LABS: Basophils % 0.3 % (0.1-2.0); Eosinophils # 0.1 K/mm3 (0.0-0.4); Eosinophils % 1.4 % (0.1-12.0); Hemoglobin 13.5 g/dL (12.2-16.2); Lymphocytes # 1.1 K/mm3 (0.7-4.5); Lymphocytes % 13.7 % (10-50); Mean Corpuscular HGB Conc 32.1 g/dL (31.8-35.4); Mean Corpuscular Hemoglobin 30.5 pg (27.0-31.2); Mean Corpuscular Volume 94.8 fl (81-99); Monocytes # 0.5 K/mm3 (0.1-1.0); Monocytes % 6.6 % (1.7-9.3); Neutrophils # 6.1 K/mm3 (1.8-7.8); Platelet Count 425 K/mm3 (142-424); Red Blood Count 4.43 M/mm3 (4.20-5.40); Red Cell Distribution Width 15.5 % (11.5-17.5); White Blood Count 7.8 K/mm3 (4.8-10.8)
[2023-04-27 13:32] LABS: Alanine Aminotransferase 27 U/L (12-78); Alkaline Phosphatase 52 U/L (38-126); Anion Gap 18.2 mEq/L (5-15); Aspartate Amino Transferase 33 U/L (14-36); Bilirubin,Direct 0.2 mg/dl (0.0-0.4); Bilirubin,Indirect 0.4 mg/dL (0.0-0.9); Bilirubin,Total 0.6 mg/dl (0.2-1.3); Bilirubin,Unconjugated 0.4 mg/dL (0.0-1.1); Blood Urea Nitrogen 24 mg/dl (7-17); Calcium 8.6 mg/dl (8.4-10.2); Carbon Dioxide 24 mmol/L (22.0-30.0); Chloride 94 mmol/L (98-107); Chol/HDL Ratio 2.7 (1-3.5); Cholesterol 128 mg/dl (140-200); Estimated Glomerular Filt Rate 31 ml/min (>60); GFR (African American) 37 ML/MIN (>60); Glucose 136 mg/dl (74-100); HDL Cholesterol 47 mg/dl (40-60); Magnesium 2.3 mg/dl (1.6-2.3); Potassium 5.2 mmoL/L (3.5-5.1); Sodium 131 mmol/L (136-145); Total Protein,Serum 7.4 g/dl (6.3-8.2); Triglycerides 128 mg/dl (30-150); VLDL Cholesterol 26 mg/dL (0-40)
[2023-04-27 13:52] LABS: Free T4 (Free Thyroxine) 1.93 ng/dl (0.78-2.19)
[2023-04-27 14:02] LABS: Thyroid Stimulating Hormone 1.37 uIU/mL (0.465-4.68)
== END ==
PROVIDERS: PCP Family Medicine; Visit Provider Nurse Practitioner
DX: E11.9 Type 2 diabetes mellitus without complications (principal); E78.5 Hyperlipidemia, unspecified; I10 Essential (primary) hypertension; I27.20 Pulmonary hypertension, unspecified; R54 Age-related physical debility; R94.31 Abnormal electrocardiogram [ECG] [EKG]; Z79.84 Long term (current) use of oral hypoglycemic drugs
CPT/HCPCS: 36415; 80048; 80061; 80076; 83735; 84439; 84443; 85025

== ENCOUNTER → 2023-05-04 16:13 | Outpatient (CLI) | payer MEDICARE, SELFPAY ==
[2023-05-04 18:12] LABS: Blood Urea Nitrogen 17 mg/dl (7-17); Carbon Dioxide 24 mmol/L (22.0-30.0); Chloride 97 mmol/L (98-107); Estimated Glomerular Filt Rate 43 ml/min (>60); GFR (African American) 52 ML/MIN (>60)
[2023-05-04 18:13] LABS: Anion Gap 13.8 mEq/L (5-15); Calcium 8.6 mg/dl (8.4-10.2); Glucose 158 mg/dl (74-100); Potassium 4.8 mmoL/L (3.5-5.1); Sodium 130 mmol/L (136-145)
== END ==
PROVIDERS: PCP Family Medicine; Visit Provider Nurse Practitioner
DX: E11.9 Type 2 diabetes mellitus without complications (principal); E78.2 Mixed hyperlipidemia; I10 Essential (primary) hypertension; I27.20 Pulmonary hypertension, unspecified; R94.31 Abnormal electrocardiogram [ECG] [EKG]; Z79.84 Long term (current) use of oral hypoglycemic drugs
CPT/HCPCS: 80048

== ENCOUNTER 2023-07-03 09:46 | Outpatient (CLI) | payer MEDICARE, SELFPAY ==
[2023-07-03] MEDS: ALBUTEROL 0.083% 2.5 MG/3 ML NEB IH (10:10)
--- NOTE | 2023-07-03 10:11 | PC.NURSE ---
Pt here for Pre & Post Spirometry. Albuterol 0.083% given via HHN, per written protocol, Pt tolerated tx well.
== END 2023-07-03 23:59 ==
LOC: RT 09:46
PROVIDERS: PCP Family Medicine; Visit Provider Internal Medicine Pulmonary Disease
DX: J44.9 Chronic obstructive pulmonary disease, unspecified (principal)
CPT/HCPCS: 94060

== ENCOUNTER 2023-09-04 19:07 | Outpatient (CLI) | payer MEDICARE, SELFPAY ==
[2023-09-04 16:30] LABS: Basophils # 0.1 K/mm3 (0-0.2); Basophils % 0.6 % (0.1-2.0); Eosinophils # 0.3 K/mm3 (0.0-0.4); Eosinophils % 2.6 % (0.1-12.0); Hematocrit 43.2 % (37.0-47.0); Hemoglobin 13.3 g/dL (12.2-16.2); Lymphocytes # 1.5 K/mm3 (0.7-4.5); Lymphocytes % 15.1 % (10-50); Mean Corpuscular HGB Conc 30.9 g/dL (31.8-35.4); Mean Corpuscular Hemoglobin 30.5 pg (27.0-31.2); Mean Corpuscular Volume 98.8 fl (81-99); Mean Platelet Volume 9.3 fl (7.4-10.4); Monocytes # 0.7 K/mm3 (0.1-1.0); Monocytes % 7.3 % (1.7-9.3); Neutrophils # 7.4 K/mm3 (1.8-7.8); Neutrophils % 74.4 % (37.0-80.0); Platelet Count 347 K/mm3 (142-424); Red Blood Count 4.37 M/mm3 (4.20-5.40); Red Cell Distribution Width 15.1 % (11.5-17.5); White Blood Count 9.9 K/mm3 (4.8-10.8)
[2023-09-04 17:14] LABS: Chloride 100 mmol/L (98-107); Sodium 136 mmol/L (136-145)
[2023-09-04 17:15] LABS: Potassium 4.5 mmoL/L (3.5-5.1)
[2023-09-04 17:17] LABS: Alanine Aminotransferase 19 U/L (12-78); Albumin Level 3.7 g/dl (3.5-5.0); Albumin/Globulin Ratio 1.2 (1.1-1.8); Alkaline Phosphatase 71 U/L (38-126); Anion Gap 9.5 mEq/L (5-15); Aspartate Amino Transferase 25 U/L (14-36); Bilirubin,Total 0.7 mg/dl (0.2-1.3); Blood Urea Nitrogen 24 mg/dl (7-17); Carbon Dioxide 31 mmol/L (22.0-30.0); Estimated Glomerular Filt Rate 43 ml/min (>60); GFR (African American) 52 ML/MIN (>60); Globulin 3.1 g/dL (1.3-3.2); Total Protein,Serum 6.8 g/dl (6.3-8.2)
[2023-09-04 17:18] LABS: Calcium 9.1 mg/dl (8.4-10.2); Glucose 145 mg/dl (74-100)
[2023-09-04 17:25] LABS: NT Pro Brain Natriuretic Pep. 761 pg/mL (0-450)
[2023-09-04 17:47] LABS: Thyroid Stimulating Hormone 1.29 uIU/mL (0.465-4.68)
== END 2023-09-04 23:59 ==
LOC: LAB.DROPOF 19:07
PROVIDERS: PCP Nurse Practitioner Family; Visit Provider Nurse Practitioner Family
DX: E03.9 Hypothyroidism, unspecified (principal); I27.20 Pulmonary hypertension, unspecified; I50.9 Heart failure, unspecified; E78.5 Hyperlipidemia, unspecified; Z79.899 Other long term (current) drug therapy
CPT/HCPCS: 80053; 83880; 84443; 85025

== ENCOUNTER 2024-07-25 11:13 | Outpatient (CLI) | payer MEDICARE, SELFPAY ==
[2024-07-25 18:00] LABS: Albumin Level 4.1 g/dl (3.5-5.0); Chloride 99 mmol/L (98-107)
[2024-07-25 18:01] LABS: Hemoglobin A1C 6.2 % (4.0-6.0); Potassium 4.5 mmoL/L (3.5-5.1); Sodium 138 mmol/L (136-145)
[2024-07-25 18:03] LABS: Alanine Aminotransferase 43 U/L (12-78); Anion Gap 12.5 mEq/L (5-15); Aspartate Amino Transferase 41 U/L (14-36); Blood Urea Nitrogen 25 mg/dl (7-17); Carbon Dioxide 31 mmol/L (22.0-30.0); Estimated Glomerular Filt Rate 47 ml/min (>60); GFR (African American) 57 ML/MIN (>60)
[2024-07-25 18:04] LABS: Albumin/Globulin Ratio 1.2 (1.1-1.8); Alkaline Phosphatase 57 U/L (38-126); Bilirubin,Total 0.7 mg/dl (0.2-1.3); Calcium 9.2 mg/dl (8.4-10.2); Chol/HDL Ratio 2.3 (1-3.5); Cholesterol 122 mg/dl (140-200); Globulin 3.3 g/dL (1.3-3.2); Glucose 116 mg/dl (74-100); HDL Cholesterol 52 mg/dl (40-60); Total Protein,Serum 7.4 g/dl (6.3-8.2); Triglycerides 103 mg/dl (30-150); VLDL Cholesterol 21 mg/dL (0-40)
[2024-07-25 18:26] LABS: T4 (Thyroxine) 12.3 ug/dl (5.53-11.0)
[2024-07-25 18:39] LABS: Thyroid Stimulating Hormone 1.85 uIU/mL (0.465-4.68)
[2024-07-25 18:57] LABS: Hepatitis C Ab Qual. W/ RFX NEGATIVE (Negative)
[2024-07-25 19:26] LABS: HIV Combo NEGATIVE (Negative)
== END 2024-07-25 23:59 | disposition home or self-care (01) ==
LOC: LAB.DROPOF 07-26 18:27
PROVIDERS: PCP Family Medicine; Visit Provider Family Medicine
DX: I10 Essential (primary) hypertension (principal); E78.2 Mixed hyperlipidemia; E11.9 Type 2 diabetes mellitus without complications; Z11.59 Encounter for screening for other viral diseases
CPT/HCPCS: 80053; 80061; 83036; 84436; 84443; 86803; 87389

== ENCOUNTER 2024-07-28 11:13 | Outpatient (CLI) | payer MEDICARE, SELFPAY | END 2024-07-28 23:59 | disposition home or self-care (01) | PROVIDERS: PCP Family Medicine; Visit Provider Internal Medicine Pulmonary Disease | DX: I48.0 Paroxysmal atrial fibrillation (principal); R00.0 Tachycardia, unspecified; J44.9 Chronic obstructive pulmonary disease, unspecified | CPT/HCPCS: 93225; 93227; 94762 ==

== ENCOUNTER 2024-08-25 15:17 | Outpatient (CLI) | payer MEDICARE, SELFPAY | END 2024-08-25 23:59 | disposition home or self-care (01) | LOC: RT 15:18 | PROVIDERS: PCP Family Medicine; Visit Provider Nurse Practitioner | DX: I48.0 Paroxysmal atrial fibrillation (principal) | CPT/HCPCS: 93270 ==

== ENCOUNTER 2024-10-18 10:10 | Outpatient (CLI) | payer MEDICARE, SELFPAY ==
[2024-10-18 10:20] VITALS: PULSE 50
== END 2024-10-18 23:59 | disposition home or self-care (01) ==
LOC: RT 10:11
PROVIDERS: PCP Family Medicine; Visit Provider Internal Medicine Pulmonary Disease
DX: R06.02 Shortness of breath (principal)
CPT/HCPCS: 94060; 94640

== ENCOUNTER 2025-02-24 14:24 | Outpatient (CLI) | payer MEDICARE, SELFPAY ==
--- OUTSIDE RECORDS SUMMARY | 2025-02-24 14:27 | XMS_ITS ---
Author Organization [facility] Care Team Providers Care Spiral Gear Generator Name Role Phone Joshua Lynch Unavailable Unavailable Allergies and adverse reactions Code CodeSystem Substance Reaction Severity StartDate Concern Status 498988000 SNOMED CT Sulfa Antibiotics Unknown 02/26/[address] Penicillins Unknown 02/26/2023 activ e 2670 RXNORM Codeine Unknown 02/26/2023 active Boniva Unknown 02/26/2023 active Care Team Name Role Address Phone Organization Dates Joshua Lynch PCP [address] [place], [address], [place] (Office): : [facility] 02/26/2023 - 03/11/2023 Immunizations Immunization Status Vaccine Details Vaccine Code CodeSystem Date Notes Influenza completed Influenza, high-dose, split virus, quadrivalent, injectable, preservative free 197 CVX created date: 03/03/2023 administer ed date: 03/29/2022 TB 2 Step Mantoux Skin Test completed tuberculin skin test; unspecified formulation lotNumber: [id number] expiry: 01/31/2024 Given 0.1 ml Right Forearm intradermally Step 2 of Multi-step with next step required 98 CVX created date: 03/05/2023 consent date: 03/05/2023 administer ed date: 03/05/2023 Educated by Kasia Thacker on 03/05/2023 TB 2 Step Mantoux Skin Test completed tuberculin skin test; unspecified formulation lotNumber: [id number] expiry: 02/29/2024 Mfg: PAR Given 0.1 ml Right Forearm intradermally Step 1 of Multi-step with next step required 98 CVX created date: 03/03/2023 consent date: 03/03/2023 administer ed date: 02/26/2023 Educated by Rosalee De Souza LPN on 02/26/2023 Diphtheria completed tetanus toxoid, reduced diphtheria toxoid, and acellular pertussis vaccine, adsorbed Mfg: apisol Given 0.1 Right Forearm subcutaneously 115 CVX created date: 02/26/2023 consent date: 02/26/2023 administer ed date: 02/26/2023 Rosalee Restrepo LPN SARS-COV-2 (COVID-19) completed SARS-COV-2 (COVID-19) vaccine, mRNA, spike protein, LNP, bivalent, preservative free, 30 mcg/0.3 mL dose, jacquie-sucrose formulation Step 1 of Multi-step 300 CVX created date: 03/03/2023 administer ed date: 03/29/2022 [facility] Bivalent booster SARS-COV-2 (COVID-19) completed SARS-COV-2 (COVID-19) vaccine, mRNA, spike protein, LNP, preservative free, 30 mcg/0.3mL dose, jacquie-sucrose formulation Step 1 of Multi-step 217 CVX created date: 03/03/2023 administer ed date: 05/18/2021 Pfizer booster SARS-COV-2 (COVID-19) completed SARS-COV-2 (COVID-19) vaccine, mRNA, spike protein, LNP, preservative free, 30 mcg/0.3mL dose, jacquie-sucrose formulation Step 2 of Multi-step with next step required 217 CVX created date: 03/03/2023 administer ed date: 11/04/2020 SARS-COV-2 (COVID-19) completed SARS-COV-2 (COVID-19) vaccine, mRNA, spike protein, LNP, preservative free, 30 mcg/0.3mL dose, jacquie-sucrose formulation Step 1 of Multi-step with next step required 217 CVX created date: 03/03/2023 administer ed date: 10/13/2020 Mental Status Section Date Assessment Total Score Description 03/11/2023 BIMS 14 cognitively int act CAM 0 No delirium ind icated PHQ-9 00 02/28/2023 BIMS 15 cognitively int act CAM 0 No delirium ind icated PHQ-9 08 mild depression Problems Problem # Description Date of onset Resolved Date Code CodeSystem Concern Status 1 ACUTE AND CHRONIC RESPIRATORY FAILURE WITH HYPOXIA 02/27/[id number] active 2 CHRONIC OBSTRUCTIVE PULMONARY DISEASE WITH (ACUTE) EXACERBATION 02/27/[address] active 3 CHRONIC OBSTRUCTIVE PULMONARY DISEASE WITH (ACUTE) LOWER RESPIRATORY INFECTION 02/27/[address] active 4 CHRONIC RESPIRATORY FAILURE WITH HYPERCAPNIA 02/27/[address] active 5 ESSENTIAL (PRIMARY) HYPERTENSION 02/27/[address] active 6 HYPERLIPIDEMIA, UNSPECIFIED 02/27/[address] active 7 HYPOTHYROIDISM, UNSPECIFIED 02/27/[address] active 8 MUSCLE WASTING AND ATROPHY, NOT ELSEWHERE CLASSIFIED, RIGHT LOWER LEG 02/27/[address] active 9 OTHER FORMS OF DYSPNEA 02/27/[address] active 10 RESPIRATORY DISORDERS IN DISEASES CLASSIFIED ELSEWHERE 02/27/[address] active 11 SLEEP RELATED HYPOVENTILATION IN CONDITIONS CLASSIFIED ELSEWHERE 02/27/[address] active 12 SYSTEMIC INFLAMMATORY RESPONSE SYNDROME (SIRS) OF NON-INFECTIOUS ORIGIN WITHOUT ACUTE ORGAN DYSFUNCTION 02/27/[address] active 13 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] 02/27/[address] active 14 UNSPECIFIED KYPHOSIS, SITE UNSPECIFIED 02/27/[address] active 15 UNSTEADINESS ON FEET 02/27/[address] active Reason for Referral No Reasons for Referral Entered Social History Social History Observation Description Start Date End Date Code Code System Current Smoking Status Tobacco smoking consumption unknown 130930815 SNOMED CT Sex Assigned At Female 1940 75441-6 LOINC Gender Identity Female 08207908470612 [address] Sexual Orientation Heterosexual (finding) 42221970 SNOMED CT Vital Signs Code Code System Vitals Name Values and Units Timing Information 9279-1 [facility] Respiratory Rate Value=18.0 Units=/m in 03/11/2023 8867-4 [facility] Heart rate Value=76.0 Units=/min 04/2023 8462-4 [facility] Blood Pressure-Diastolic Value=70 Un its=mmHg 03/11/2023 8480-6 [facility] Blood Pressure-Systolic Kbtxj=185 Un its=mmHg 03/11/2023 8310-5 [facility] Body Temperature Value=97.8 Units= F 03/11/2023 17213-6 [facility] O2 % BldC Oximetry Value=95.0 Units= % 03/11/2023 57177-4 [facility] Pain Level Value=0.0 03/11/2023 00218-5 [facility] Weight Zegji=316.8 Units=Lbs 12/2022 8302-2 [facility] Height Value=62.0 Units=Inches 02/26/2023
--- OUTSIDE RECORDS SUMMARY | 2025-02-24 14:27 | XMS_ITS | Clinical Summary ---
Author Organization [facility] Address [address] [id number] Care Team Providers Care Business Case Analyst Name Role Phone Andrea Durand MD Primary Care Provider Social History Tobacco Use Types Packs/Day Years Used Date Smoking Tobacco: Never Assessed Comments Unknown Sex and Gender Information Value Date Recorded Sex Assigned at Not on file Legal Sex Female 7:39 PM EDT Gender Identity Not on file Sexual Orientation Not on file Plan of Treatment Health Maintenance Due Date Last Done Comments [facility]-Bone Density Scan 1940 [facility]-Depression Screening 1940 [facility]-Medicare Annual Wellness (AWV) 1940 [facility]-Infant/Child/Adol SDOH Screenings 1940 [facility]- SDOH Screenings 1956 [facility]-Adult SDOH Screenings 1956 [facility]-DTaP,Tdap,and Td Vaccines (1 - Tdap) 1957 [facility]-Pneumococcal Vaccine: 50+ Years (1 of 1 - PCV) 1988 [facility]-Zoster Vaccines (1 of 2) 1988 [facility]-RSV Vaccine: 60+ Years or (1 - 1-dose 75+ series) 2013 [id number] Vaccine ( - season) 2025 05/18/2021, 11/04/2020, 10/13/2020 [facility]-Influenza Vaccine (#1) 2025 03/30/2021 HPV Vaccines Aged Out No longer eligi ble based on patient's age to complete this topic [facility]-HIB Vaccines Aged Out No longer e ligible based on patient's age to complete this topic [facility]-Hepatitis A Vaccines Aged Out No longer eligible based on patient's age to complete this topic [facility]-IPV Vaccines Aged Out No longer e ligible based on patient's age to complete this topic [facility]-Rotavirus Vaccines Aged Out No lo nger eligible based on patient's age to complete this topic Insurance Lot [address] [place] [id number] [place] [address] MEDICARE Care Teams Business Case Analyst Relationship Specialty Start Date End Date Andrea Durand MD [address] [address] PCP - General 06/01/20
--- OUTSIDE RECORDS SUMMARY | 2025-02-24 14:27 | XMS_ITS | Patient Health Record ---
Author Organization Andrea Durand MD Address [address] [place] [address] Care Team Providers Care Rad Technologist Name Role Phone Andrea Durand Primary Care Provider [phone] Andrea Durand MD Unavailable [phone] Allergies Allergen (clinical drug ingredient) Drug/Non Drug Allergy documented on EMR Reaction Allergy Type Onset Date Status ibandronate Boniva diarrhea Drug Allergy Activ e Codeine Phosphate stomach upset Drug Allergy Active penicillin V Penicillin V Potassium rash Drug Allergy Active Sulfamethoxazole stomach upset Drug Allergy Active Sulfa stomach upset Drug Allergy Act nicki Reason For Referral No Information Medications Medication SIG (Take, Route, Frequency, Duration) Notes Start Date End Date Status Acetominophen-1000 mg 1000 mg one tab orally every six hours prn Active Colace 100 mg 1 capsule Orally Onc e a day 03/17/2022 Active Accu-Chek Guide Me w/Device USE TO CHECK BLOOD GLUCOSE DAILY BEFORE BREAKFAST Active amLODIPine Besylate 10 MG 1 tablet Orally Once a day Active Blood Glucose Test Strip - as directed I n Vitro daily before breakfast to check blood sugar dx E11.9 06/05/2021 Active Oxygen 2 L/min intranasally 24 hours a day Active Lancets - as directed subcutan eously once a day to check blood sugar (dx E11.9) 06/05/2021 Active Stiolto Respimat 2.5-2.5 MCG/ACT 2 puffs Inhalation Once a day Active B-12 1000 MCG 1 tablet under the t ongue and allow to dissolve Sublingual Once a day OTC 04/19/2013 Active Atorvastatin Calcium 40 mg 1 tablet Orally Once a day Active Advil 200 MG 1 tablet with food o r milk as needed Orally Three times a day Active Toprol XL 25 MG 1 tablet Orally Once a day Active Albuterol Sulfate HFA 108 (90 Base) MCG/ACT Inhalation Active Lisinopril-hydroCHLOROthia zide 20-12.5 MG 1 tablet Orally Once a day 06/10/2022 Active metFORMIN HCl 500 MG 1 tablet with a martha l Orally twice a day Active Vitamin E 1000 UNIT Orally qd Active Ferrous Sulfate 325 (65 Fe) mg 1 tablet Orally Twice a day Active Vitamin D 1000 UNIT 1 tablet Orally Once a day Active Gas Relief 80 MG 1 tablet as needed O rally Three times a day Active Levothyroxine Sodium 50 MCG 1 tablet on an empty stomach in the morning Orally Once a day Active Pepcid Complete 10-800-185 MG 1 tablet as needed Orally Twice a day OTC 05/10/2019 Active Immunizations Vaccine Route Administration Date Status Comme nts Pneumovax 23 Unknown 06/01/2005 Administered Influenza-Fluzone Unknown 03/01/2008 Administered Influenza-Fluzone IM Intramuscular 04/04/2011 Administered Influenza-Fluzone IM Intramuscular 03/29/2012 Administered Influenza-Fluzone IM Intramuscular 04/06/2013 Administered Influenza (split) IM Intramuscular 03/21/2014 Administered Influenza-High Dose, Fluzone Unknown 04/04/2015 Administered Social History Tobacco Use: Social History Observation Description Date Details (start date - stop date) Never Smoker NA - NA Alcohol Question Answer Notes Did you have a drink containing alcohol in the p ast year? No Points 0 Interpretation Negative Smoking: Question Answer Notes Are you a: never smoker Problems Problem Type SNOMED Code ICD Code Onset Dates Problem Status W/U Status Risk Notes Problem Hyperlipidemia (40408698) Hyperlipidemia (272.4) Active confirmed Problem Essential hypertension (74465104) Essential (primary) hypertension (I10) Active confirmed Problem Type II diabetes mellitus without complication (383769494) Type 2 diabetes mellitus without complications (E11.9) Active confirmed Problem Hypothyroidism (93858435) Hypothyroidism, unspecified (E03.9) Active confirmed Problem Chronic obstructive pulmonary disease (82511045) Chronic obstructive pulmonary disease, unspecified (J44.9) Active confirmed Problem Hyperlipidemia (73362742) Hyperlipidemia, unspecified (E78.5) Active confirmed Problem Fatigue (15159458) Other fatigue (R53.83) Active confirmed Problem Gastro-esophageal reflux disease without esophagitis (914414265) Gastro-esophageal reflux disease without esophagitis (K21.9) Active confirmed Problem Chronic anemia (373365503) Anemia in other chronic diseases classified elsewhere (D63.8) Active confirmed Problem Vitamin B deficiency (76915447) Deficiency of other specified B group vitamins (E53.8) Active confirmed Problem Chronic atrial fibrillation (044544987) Chronic atrial fibrillation (I48.2) Active confirmed Problem Allergic rhinitis (04543018) Allergic rhinitis, unspecified (J30.9) Active confirmed Problem Arthralgia of the pelvic region and thigh (915831399) Pain in unspecified hip (M25.559) Active confirmed Problem Kyphosis deformity of thoracic spine (disorder) (914415210) Unspecified kyphosis, thoracic region (M40.204) Active confirmed Problem Low back pain (412570326) Low back pain (M54.5) Active confirmed Problem Age-related osteoporosis (687924562) Age-related osteoporosis without current pathological fracture (M81.0) Active confirmed Problem Abnormal breathing (616897905) Other abnormalities of breathing (R06.89) Active confirmed Problem Dysphagia (20403531) Dysphagia, unspecified (R13.10) Active confirmed Problem Frailty (finding) (294351968) Age-related physical debility (R54) Active confirmed Plan Of Treatment Pending Test Test Name Order Date Mammogram 01/19/2019 VENIPUNCTURE 04/19/2013 VENIPUNCTURE 10/04/2013 VENIPUNCTURE 03/21/2014 VENIPUNCTURE 08/29/2014 Bone Density 01/19/2019 INFLUENZA 04/06/2013 Stress Test, plain 05/29/2010 Barium : Swallow, modified 03/17/2022 URINALYSIS, COMPLETE W/REFLEX TO CULTURE 09/03/2021 Folate 02/10/2017 Fecal Globin by Immunochemistry (InSure( R)) (FIT) 10/14/2016 Urinalysis Dipstick 10/27/2017 Microalb/Creat Ratio, Urine 09/03/2021 Future Test Test Name Order Date Thyroid Panel With TSH 03/11/2023 Comprehensive Metabolic Panel w/EGFR 04/2023 HEMOGLOBIN A1c 03/11/2023 Vitamin B12 03/11/2023 Folate 03/11/2023 Ferritin 03/11/2023 Iron, Total and Total Iron Binding Moodus ity 03/11/2023 CBC with Platelets and Differential 03/01 Urinalysis Dipstick 03/11/2023 Lipid Panel (Rflx) 03/11/2023 Insurance Providers Payer Name Payer Address Payer Phone Subscriber Number Group Number Insured Name Patient Relationship to Insured Coverage Start Date Coverage End Date [employer] P[employer] Medicare [address] [address] [place] [address] [id number] Tomas Del Real Self - patient is the insured Medications Administered Medication Instructions Date of Administration Dosage Notes Cyanocobalamin 04/24/2010 Cyanocobalamin 05/29/2010 Cyanocobalamin 06/19/2010 Cyanocobalamin 07/17/2010 Cyanocobalamin 08/19/2010 Cyanocobalamin 09/16/2010 Cyanocobalamin 10/14/2010 Cyanocobalamin 11/13/2010 Cyanocobalamin 12/11/2010 Cyanocobalamin 01/10/2011 Cyanocobalamin 02/07/2011 Cyanocobalamin 03/07/2011 Cyanocobalamin 04/04/2011 Cyanocobalamin 04/29/2011 Ceftriaxone 06/10/2011 1 g Medical (General) History Medical History History ICD Code Diverticulitis Osteoporosis 06/01/2008 TB skin test - negative hypoxia Surgical History Surgery Date(Month/Year) Hysterectomy [facility] 06/01/1973 Cholescystectomy [facility] 06/01/2007 Rt eye Catarract removal Dr. Castro Lt eye Catarract removal Dr. Castro hernia repain, colectomy-Dr Forde December 19, 2016 Hospitalization History Reason Date(Month/Year) [facility] ER after fall 01/2011 [facility] ER-admitted for hypoxi a and UTI 05/27/21
--- NOTE | 2025-02-24 14:30 | CA_ITS ---
APPROVED REPORT EXAM: Comprehensive 2D, Doppler, and color-flow Echocardiogram Varitypist: Naomie Hatch, RCS, RVS Ht: 5 ft 2 in Wt: 78lbs BSA: 1.28 BP: 123/73 mmHg Rhythm: Atrial Fibrillation Indications: afib, COBURN, COPD, Home O2. Murmurs, Smoker Echo Enhancing Agent Comments: TDS:extreme kyphosis with lung impedance 2D Dimensions IVSd 0.82 cm F: 0.6-1.0 LVEF (Visual) 62.10 % PWd 0.87 cm F: 0.6 - 1.0 LA Volume 38.70 mL LVDd 4.05 cm F: 3.9 - 5.3 LA Volume Index 30.23 mL/m2 (M/F) 16-34 LVDs 2.71 cm F: 2.2 - 3.5 EF AP4 65.80 % Left Atrium 3.10 cm F: 2.7 - 3.8 GL Strain -12.4 % M-Mode Dimensions RVDd 3.72 cm (0.9-2.6) LA Diam 2.96 cm (1.9-4.0) LVDd 2.89 cm (3.5-5.7) LVDs 2.02 cm (3.5-5.7) IVSd 1.00 cm (0.6-1.1) PWd 0.80 cm (0.6-1.1) EF (Teich) 58.90% EPSs 1.04 cm FS 30.10% EDV (Teich) 31.90 mL TAPSE 1.54 (<1.7) ESV (Teich) 13.10 mL LV Diastology E Decel Time 207 (160-240 msec) E/A Ratio 0.63 MED A' 17.10 cm/s LAT A' 16.10 cm/s Aortic Valve SCOTT Index 1.78 cm2/m2 AoV Peak Andrey. 158.0 (50-130 cm/s) AI PHT 343.00 ms AO Peak GR. 10.00 mmHg AO Mean GR. 5.20 (<5 mmHg) AO VTI 33.4 (18-25 cm) SCOTT (VTI) 2.33 (2.5-4.5 cm2) Mitral Valve MV A Velocity 133.0 (40-130 cm/s) E/A Ratio 0.63 MV Mean Gr. 1.90 (<2mmHg) Pulmonary Valve PV Peak Velocity 97.0 (50-150 cm/s) WV End VMAX 290.0 cm/s Tricuspid Valve TR P. Velocity 430.00 cm/s RAP Estimate 10.00 mmHg RVSP 84.10 mmHg Left Ventricle The left ventricle is normal size. Left ventricular systolic function is normal. The left ventricular ejection fraction is within the normal range. There is increased left ventricular wall thickness. There is normal LV segmental wall motion. Transmitral Doppler flow pattern suggests impaired LV relaxation. LVEF is 55%. Right Ventricle The right ventricle is normal size. The right ventricular systolic function is mildly reduced. Atria The left atrium is mildly dilated. The right atrium is mildly dilated. There is no color Doppler evidence of interatrial shunt. Aortic Valve The aortic valve is mildly thickened. There is no hemodynamically significant aortic valvular stenosis. Mild aortic regurgitation is present. Mitral Valve The mitral valve is normal in structure. No evidence of mitral valve stenosis. Mild mitral regurgitation is present. Tricuspid Valve The tricuspid valve leaflets are thin and pliable. Mild tricuspid regurgitation. RVSP 55-60 mmHg. Pulmonic Valve The pulmonary valve is grossly normal in structure. Trace pulmonic valve regurgitation is present. Great Vessels The aortic root is normal in size. IVC is normal in size and collapses >50% with inspiration. Pericardium There is no pericardial effusion. Other Information Study Quality: Technically Difficult Conclusion Normal LV systolic function. Normal RV size with mild reduction in RV function. Biatrial dilation. Mild MR, mild AI, mild TR. Markedly elevated RVSP 55-60 mmHg. Electronically signed by : Clary Villa MD 02/28/2025 13:00:46
== END 2025-02-24 23:59 | disposition home or self-care (01) ==
LOC: RT 14:24
PROVIDERS: PCP Family Medicine; Visit Provider Internal Medicine Pulmonary Disease
DX: I08.3 Combined rheumatic disorders of mitral, aortic and tricuspid valves (principal); I27.20 Pulmonary hypertension, unspecified; I48.91 Unspecified atrial fibrillation; J44.9 Chronic obstructive pulmonary disease, unspecified; Z99.81 Dependence on supplemental oxygen; F17.200 Nicotine dependence, unspecified, uncomplicated; R93.1 Abnormal findings on diagnostic imaging of heart and coronary circulation
CPT/HCPCS: 93306